=== PATIENT | male | born 1945 | race Caucasian/White ===

== ENCOUNTER 2017-02-28 06:36 | Inpatient (IN) | payer MEDICARE ==
--- NOTE | 2017-02-28 07:41 | RAD ---
PORTABLE CHEST: HISTORY: Chest pain. COMPARISON: 09/26/16 study. FINDINGS: Heart size is enlarged. Pulmonary vessels re engorged. There are some increased interstitial lung m arkings more bibasilar predominant. IMPRESSION: Cardiomegaly with mild vascular engorgement and increased interstitial changes. The changes are more in the bases than in a perihilar distribution, although would still favor a possibility of pulmonary edema as an etiology. Given the relative asymmetry, a bibasilar infiltrate cannot be excluded. Fol lowup chest films are suggested. POS: [facility]
[2017-02-28 08:13] LABS: #Lymphocytes 1.2 thou/uL (1.20-3.40); #Monocytes 0.4 thou/uL (0.11-0.59); #Neutrophils 3.1 thou/uL (1.40-6.50); %Eosinophils 0.1 % (0.0-10.0); %Lymphocytes 25.5 % (21.0-51.0); %Monocytes 7.8 % (0.0-10.0); Hematocrit 38.4 % (42.0-52.0); Mean Platelet Volume 9.1 fL (7.4-10.4); Red Blood Cell (RBC) Count 4.78 mill/uL (4.70-6.10); White Blood Cell (WBC) Count 4.8 thou/uL (4.8-10.8)
[2017-02-28 08:15] LABS: ALT (SGPT) 20 U/L (8-55); AST (SGOT) 21 U/L (5-34); Alkaline Phosphatase 101 U/L (40-150); Anion Gap 11 mmol/L (10-20); BUN (Urea Nitrogen) 18 mg/dL (8.4-25.7); Bilirubin, Total 0.2 mg/dL (0.2-1.2); CK (CPK) 154 U/L (30-200); Calc. Creatinine Clearance 0 mL/min (70-130); Carbon Dioxide 27 mmol/L (23-31); Chloride 104 mmol/L (98-107); Estimated GFR-MDRD Greater than 90; Globulin 3.1 g/dL (2.4-3.5); Protein, Total 6.9 g/dL (5.8-8.1)
[2017-02-28 08:18] LABS: Troponin I 0.026 ng/mL (< 0.028)
[2017-02-28 08:53] LABS: Prothrombin Time 13.9 SEC (12.0-14.7)
[2017-02-28] MEDS ORDERED: Furosemide 40 MG/4 ML VIAL ONE (09:58)
[2017-02-28] MEDS ORDERED: Nitroglycerin 2% Ointment 1 INCH/1 GM Packet ONE (09:58)
[2017-02-28] MEDS ORDERED: Aspirin 325 MG TAB ONE (09:58)
[2017-02-28] MEDS ORDERED: Senokot 8.6 MG TAB PO PRN ×2 (10:57)
[2017-02-28] MEDS ORDERED: HumaLOG 300 UNITS/3 ML VIAL SC PRN ×2 (10:57)
[2017-02-28] MEDS ORDERED: Loratadine 10 MG TAB PO PRN (10:57)
[2017-02-28] MEDS ORDERED: Calcium Carbonate 500 MG ChewTAB PO PRN (10:57)
[2017-02-28] MEDS ORDERED: Ondansetron HCl/PF 4 MG/2 ML Vial IVP PRN (10:57)
[2017-02-28] MEDS ORDERED: hydrALAZINE 20 MG/ML VIAL SLOW IVP PRN (10:57)
[2017-02-28] MEDS ORDERED: Bisacodyl 5 MG TAB PO PRN ×2 (10:57)
[2017-02-28] MEDS ORDERED: Diabetic Tussin 200 MG/10 ML UDCUP PO PRN (10:57)
[2017-02-28] MEDS ORDERED: Benzonatate 100 MG CAP PO PRN (10:57)
[2017-02-28] MEDS ORDERED: Nitroglycerin 0.4 MG TAB (25 Tab Bottle) PO PRN (10:57)
[2017-02-28] MEDS ORDERED: traMADol HCl 50 MG TAB PO PRN (10:57)
[2017-02-28] MEDS ORDERED: Dextrose 5% in Water 1,000 ML IV PRN (10:57)
[2017-02-28] MEDS ORDERED: Dextrose 50% Abboject 50 ML SYRINGE SLOW IVP PRN (10:57)
[2017-02-28] MEDS ORDERED: cloNIDine 0.1 MG TAB PO PRN (10:57)
[2017-02-28] MEDS ORDERED: Mag-Al 1200 mg/1200 mg/30 ML UDCUP PO PRN (10:57)
--- NOTE | 2017-02-28 11:00 | CT ---
CT ANGIO OF CHEST AND ABDOMEN PERFORMED WITH INTRAVENOUS CONTRAST ENHANCEMENT WITH 3D RECONSTRUCTIONS : HISTORY: Patient complaining of pain between the shoulder blades and tingling in the left arm. This was done per the aortic dissection protocol. FINDINGS: Lungs show some ground-glass opacity in both lung joe. This would raise the possibility there may be some element of edema. There is some very minimal nodular patchy airspace opacity in both upper lobes which could be on the basis of some minimal infiltrate or be part of edema process. It is less likely that these are small pulmonary nodules as they are fairly indistinct. There are some prevascular lymph nodes, one of which is slightly large at 10 mm. There is otherwise no significant mediastinal adenopathy. There are small hilar lymph nodes present. The central pulmonary arteries are fairly well opacified. I do not see any signs of any central pulm onary embolus. The thoracic aorta is normal in caliber. There is some irregular plaque formation of the aortic arch. There are no signs of dissection or aneurysm. CT OF ANGIO OF ABDOMEN PERFORMED WITH CONTRAST ENHANCEMENT: The liver is within normal limits of size. It has a nodular cirrhotic contour. It measures 15 cm in length. The spleen measures 13 cm. Pancreas and gallbladder regions are unremarkable. A hiatal hernia is noted. Right and left adrenal glands are normal in appearance. There is a 3.5 cm cyst involving the right k idney. There is no significant periaortic or mesenteric adenopathy. The thoracic aorta is normal in caliber. There is atherosclerotic change. There are no signs of diss ection. There is patent ANGEL and no significant stenosis of either celiac or SMA. A single renal art merissa is present on the right and 2 left renal arteries noted. IMPRESSION: 1. No evidence of aortic aneurysm or dissection. 2. Cirrhotic-appearing liver with some mild splenomegaly. 3. Patchy ground-glass opacity in both lung joe suggesting some element of edema superimposed on chronic lung change. There is also some slightly ill-defined nodular opacity in both upper lobes mor e so on the right, possibly some minimal infiltrative or pneumonitis-type change. POS: [facility]
[2017-02-28 11:28] LABS: Troponin I 0.429 ng/mL (< 0.028)
[2017-02-28] MEDS ORDERED: Iopamidol 370 76% 100 ML VIAL ONE (13:43)
[2017-02-28] MEDS ORDERED: Metoprolol Tartrate 25 MG TAB PO SCH (14:00)
--- NOTE | 2017-02-28 14:20 | HP ---
DATE OF ADMISSION: 02/28/2017 PRIMARY CARE PHYSICIAN: Rosanna León M.D. CHIEF COMPLAINT: Left-sided arm pain and back pain associated with some left-sided chest pain. HISTORY OF PRESENTING ILLNESS: Mr. Bahena is a pleasant 71-year-old male with past medical history o f seizure disorder, diabetes, hypertension, dyslipidemia, history of syncopal episode, attributed epi lepsy who presented to the ER with above-mentioned complaint. History is mainly obtained by the mike ent himself and electronic medical records has been reviewed. He was last admitted to our facility i n 09/2016 for a near syncopal episode and underwent neurological workup including a transthoracic ech ocardiogram and carotid Doppler ultrasound. His echo showed diastolic dysfunction and his carotid Do ppler was unremarkable. Today, he presented with above-mentioned complaint of 2-3 weeks duration. The symptoms are mainly pa in between his shoulder blades and his left shoulder and his left arm and associated with left arm ti ngling and numbness. He had an episode of syncope and fall about 1 week ago. He denies any palpitat ions, shortness of breath, diaphoresis with these episodes. He does not have typical chest pain per se. He denies any other recent illnesses. Upon presentation to the emergency room, he was somewhat hypertensive with systolic blood pressure in the 190s. He underwent chest x-ray which was unremarkable and then he underwent CT scan with aortic dissection protocol. He does not have any dissection or aneurysm, but patchy ground glass opacities were seen in the lung joe, suggesting of some edema. He was given one dose of Lasix IV for possi ble fluid overload. Serial cardiac enzymes were done and his initial troponin and CK-MB were within normal limits, but his repeat troponin jumped from 0.026-0.429. Now he is being admitted for further workup. He reports that he has worn a Holter monitor for about a month under the care of Dr. Love and no arrhythmias were reported that he can recall. PAST MEDICAL HISTORY: 1. Diabetes. 2. Dyslipidemia. 3. Hypertension. 4. History of seizure, under the care of neurologist, Dr. Kacie Pittman. 5. GERD. 6. 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 7. History of skin cancer. 8. History of reoccurrence falls. 9. Macular degeneration. 10. Chronic hepatitis B. 11. Shingles. 12. Hospitalization for Dilantin toxicity. PAST SURGICAL HISTORY: 1. Left ankle fracture in 1995. 2. Biopsy for skin cancer. 3. Vasectomy. ALLERGIES: Including DILANTIN, ACYCLOVIR, DEPAKOTE, and VALACYCLOVIR. CURRENT HOME MEDICATIONS: Unable to obtain at this time. It will be confined when family brings the medications to the hospital. SOCIAL HISTORY: He currently lives at home with his . Incidentally, his is also in the [facility] room today getting admitted for a different problem. He quit smoking in 1985. No alcohol or drug abuse. FAMILY HISTORY: Significant for diabetes, hypertension, and heart disease in the father and same for mother who had diabetes, hypertension, and heart disease. REVIEW OF SYSTEMS: The following complete review of systems was negative, unless otherwise mentioned in the HPI or below: Constitutional: Weight loss or gain, ability to conduct usual activities. Skin: Rash, itching. Eyes: Double vision, pain. ENT/Mouth: Nose bleeding, neck stiffness, pain, tenderness. Cardiovascular: Palpitations, dyspnea on exertion, orthopnea. Respiratory: Shortness of breath, wheezing, cough, hemoptysis, fever or night sweats. Gastrointestinal: Poor appetite, abdominal pain, heartburn, nausea, vomiting, constipation, or diarr hea. Genitourinary: Urgency, frequency, dysuria, nocturia. Musculoskeletal: Pain, swelling. Neurologic/Psychiatric: Anxiety, depression. Allergy/Immunologic: Skin rash, bleeding tendency. It is negative except for those mentioned in the history and physical. LABORATORY DATA AND IMAGING: On laboratory examination, his CBC shows WBCs at 4.8. Hemoglobin 12.2 and platelet count of 102. PT and INR are unremarkable. Serum chemistries show blood sugar 121, oth erwise unremarkable. Magnesium 2.3. BNP slightly elevated at 113. Troponin as per HPI. Creatinine kinase is within normal limits. Chest x-ray by my review, it shows mild vascular congestion and increased interstitial change. CT of the chest with dissection protocol is negative for any aortic dissection or aneurysm. PHYSICAL EXAMINATION: VITAL SIGNS: Most recent vital signs include blood pressure 165/69, temperature 98.2, pulse of 89, s aturating 100% on room air, and respirations 18. GENERAL: He appears somewhat uncomfortable, but awake, alert, oriented x3, no acute distress. HEENT: Mucous membrane is moist and pink. No oropharyngeal exudate or erythema. Head is normocepha lic, atraumatic. Pupils are equal and reactive to light and accommodation. Extraocular movements in tact. NECK: Supple without any lymphadenopathy, JVD or bruit. CHEST: Clear to auscultation without any wheezing, rales or rhonchi. CARDIOVASCULAR: Rhythm is regular without any murmur, rubs or gallops. ABDOMEN: Soft, nontender, and nondistended with positive bowel sounds. EXTREMITIES: Free of any cyanosis, clubbing, or edema. NEUROLOGIC: Examination is nonfocal. SKIN: Free of any rashes or bruises, feels warm and dry to touch. PSYCHIATRIC: Normal affect. VASCULAR: +2 pedal pulses felt bilaterally. IMPRESSION AND PLAN: 1. Chest pain with elevated and up-trending troponin. The concern is that he might have suffered ac [place] coronary syndrome at this time. We will continue to trend serial cardiac enzymes. He has receiv ed 1 dose of aspirin in the emergency room and we will continue that for now. His EKG did not sugges t ST elevation myocardial infarction. We will consult Cardiology for further recommendations. We wi ll give him 1 dose of Lovenox at 1 mg/kg dosing. The patient has already eaten today and if he needs a cardiac catheterization; it most likely will not be able to be done today. He will be admitted to telemetry floor with diagnosis of non-ST elevation myocardial infarction. We will add beta beatriz given his elevated blood pressure as well. We will continue to trend serial cardiac enzymes for now. He is hemodynamically stable. 2. Recent syncope and fall. The patient reports that he has worn a heart monitor without any eviden ce of arrhythmias in the recent past. Also, he has had a thorough neurological workup. Likely, diag nosis is still secondary to epilepsy and drop attacks. He will be monitored in the hospital and we w ill have Cardiology recommendations with regards to his possible syncopal episode as well. Check torito nges in blood pressure to rule out orthostasis as a cause. 3. Diabetes mellitus type 2. He will be started on insulin sliding scale with frequent Accu-Cheks. 4. History of epilepsy. He will continue to follow up with Dr. Pittman as an outpatient and we will re -start his home medications once confirmed. 5. Hypertension. Restart home medications, but for now, we will add beta beatriz given his presenta tion with chest pain and elevated cardiac enzymes. 6. Gastroesophageal reflux disease. He will be started on proton pump inhibitor. 7. History of chronic hepatitis B. 8. Vitamin D deficiency. 9. Code status: FULL CODE. Discussed with the patient and his daughter present in the room. DISPOSITION: The patient is currently being admitted for chest pain and non-ST elevation NH. Furthe r management will depend upon his clinical course and Cardiology's recommendations. If his troponins continue to trend upwards and he needs to have angiogram or angioplasty; he will be changed to inpat ient status.
[2017-02-28] MEDS ORDERED: Metoprolol Tartrate 25 MG TAB ONE (14:46)
[2017-02-28 14:59] LABS: Troponin I 0.825 ng/mL (< 0.028)
[2017-02-28] MEDS ORDERED: Enoxaparin Sodium 100 MG/ML SYRINGE ONE (15:07)
[2017-02-28] MEDS ORDERED: Enoxaparin Sodium 100 MG/ML SYRINGE SC SCH (15:30)
--- NOTE | 2017-02-28 19:56 | CON ---
DATE OF CONSULTATION: 02/28/2017 REASON FOR CONSULTATION: Elevated troponin. REFERRING PHYSICIAN: Tahira Stout MD PRIMARY AIRPLANE DESIGNER: Bonifacio Love M.D. HISTORY OF PRESENT ILLNESS: Mr. Bahena is a 71-year-old gentleman who was seen and evaluated by Dr. Bonifacio Love in 06/2016. He was seen and evaluated for falls. A loop recorder was placed, was no t found to have significant dysrhythmias. Most recently, Mr. Bahena had another syncopal episode while in the shower. His son states he hit th e back of his head. He lost consciousness. He does have a history of epilepsy in the past. He also complains of chest tightness and pressure that most notably occurs with drinking fluids. He then st ates he has left arm radiation. No other ameliorating, exacerbating, or precipitating factors presen t. The patient did present to the emergency room with elevated blood pressure. PAST MEDICAL HISTORY: Diabetes mellitus, hypertension, hyperlipidemia, seizure disorder, skin cancer , macular degeneration, hepatitis C, shingles, and vasectomy. ALLERGIES: DILANTIN, ACYCLOVIR, DEPAKOTE, VALACYCLOVIR. SOCIAL HISTORY: No current tobacco or alcohol use. REVIEW OF SYSTEMS: Ten point review of systems reviewed and as above, otherwise negative. PHYSICAL EXAMINATION: VITAL SIGNS: Blood pressure 155/74, pulse 65, temperature 98. GENERAL: Patient is a pleasant male who is in no acute distress. The patient appears his stated age . NEUROLOGIC: The patient is alert and oriented times 3 with no focal neurologic deficits. HEENT: Sclerae without icterus. Mouth has moist mucous membranes with normal pallor. NECK: No JVD. Carotid upstroke brisk. No bruits bilaterally. LUNGS: Clear to auscultation with unlabored respirations. BACK: No scoliosis or kyphosis. CARDIAC: Regular rate and rhythm with normal S1 and S2. No S3 or S4 noted. No significant rubs, m urmurs, thrills, or gallops noted throughout the precordium. PMI is not displaced. There is no para sternal heave. ABDOMEN: Soft, nontender, nondistended. No peritoneal signs present. No hepatosplenomegaly. No ab normal striae. EXTREMITIES: 2+ femoral and 2+ dorsalis pedis pulses. No cyanosis, clubbing, or edema. SKIN: No gross abnormalities. PERTINENT LABS: Hemoglobin 12.2, hematocrit 38.4, his troponin 0.8, creatinine 0.78. EKG shows sinus rhythm with nonspecific intraventricular conduction delay. IMPRESSION: 1. Non-Q myocardial infarction. 2. Syncope. 3. Seizure disorder. RECOMMENDATIONS: Mr. Bahena's symptoms certainly sound atypical for angina, but his troponin is 0.8, which is felt to be significant. We discussed aggressive versus conservative therapy with Mr. Boyd novak. We decided to proceed with a more aggressive approach. I discussed coronary angiography in full detail with Mr. Bahena. The risks of the procedure were also discussed. The risks of the procedure include but are not limited to the following: , stroke, IL, need for emergency surgery, loss of limb, bleeding, and infection, as well as a re action to the dye causing kidney failure and needing long-term dialysis. I also discussed the risks of PCI to include all of the above including coronary dissection and perforation in addition to acute stent thrombosis and restenosis. All questions about the procedure were answered. I also discussed drug-coated versus nondrug coated stent placement. He would like to proceed with drug-coated stent placement if needed. Further recommendations pending per Dr. Love in a.m..
[2017-02-28] MEDS: Famotidine 20 MG TAB PO SCH (20:47)
[2017-02-28] MEDS: carBAMazepine 200 MG TAB PO SCH (20:47)
[2017-02-28] MEDS: Metoprolol Tartrate 25 MG TAB PO SCH (20:47)
[2017-02-28 23:10] LABS: Bilirubin Negative (Negative); Blood, Urine Large (Negative); Glucose, Urine (Dipstick) Negative (Negative); Ketone, Urine Negative (Negative); Nitrite Negative (Negative); Protein, Urine (Dipstick) 100 mg/dL (Neg-Trace)
[2017-02-28 23:12] LABS: Bacteria/HPF None Seen HPF (None Seen); Hyaline Casts/LPF 0-3 HYALINE CAST LPF (0-3 Hyaline); RBC/HPF GREATER THAN 50-TNTC HPF (0-3); Squamous Epithelial None Seen HPF (0-3); WBC/HPF 0-3 HPF (0-3)
[2017-03-01 05:32] LABS: #Basophils 0.1 thou/uL (0.0-0.2); #Lymphocytes 1.6 thou/uL (1.20-3.40); #Monocytes 0.3 thou/uL (0.11-0.59); #Neutrophils 3.4 thou/uL (1.40-6.50); %Basophils 1.4 % (0.0-1.0); %Eosinophils 0.2 % (0.0-10.0); %Lymphocytes 29.9 % (21.0-51.0); Hematocrit 38.3 % (42.0-52.0); Mean Platelet Volume 9.7 fL (7.4-10.4); Red Blood Cell (RBC) Count 4.78 mill/uL (4.70-6.10); White Blood Cell (WBC) Count 5.5 thou/uL (4.8-10.8)
[2017-03-01 05:40] LABS: Anion Gap 10 mmol/L (10-20); BUN (Urea Nitrogen) 18 mg/dL (8.4-25.7); Calc. Creatinine Clearance 0 mL/min (70-130); Calcium 9.1 mg/dL (7.8-10.44); Carbon Dioxide 25 mmol/L (23-31); Chloride 103 mmol/L (98-107); Estimated GFR-MDRD Greater than 90
[2017-03-01 06:27] VITALS: BMI 33.0
[2017-03-01] MEDS ORDERED: HEPARIN ONE (07:37)
[2017-03-01] MEDS ORDERED: NS ONE (07:37)
[2017-03-01] MEDS ORDERED: carBAMazepine 200 MG TAB PO SCH (09:00)
[2017-03-01] MEDS ORDERED: Lisinopril 10 MG TAB PO SCH (09:00)
[2017-03-01] MEDS ORDERED: LOVASTATIN 20 MG PO SCH (09:00)
[2017-03-01] MEDS ORDERED: Enoxaparin Sodium 40 MG/0.4 ML SYRINGE SC SCH (09:00)
[2017-03-01] MEDS ORDERED: Heparin 1000 UNIT/NS 500ML(OR) 1,000 ML ONE (09:13)
[2017-03-01] MEDS ORDERED: Sodium Chloride 0.9% 1,000 ML IV SCH ×2 (09:15→10:42)
[2017-03-01] MEDS ORDERED: Communication Order-Pharmacy FS SCH (09:15)
[2017-03-01] MEDS ORDERED: Heparin 10,000 UNITS/1 ML VIAL ONE (09:37)
[2017-03-01] MEDS ORDERED: Fentanyl 100 MCG/2 ML VIAL ONE (09:59)
[2017-03-01] MEDS ORDERED: Midazolam HCl 2 mg/2 ml Vial ONE (09:59)
[2017-03-01] MEDS ORDERED: Protamine Sulfate 50 MG/5 ML VIAL ONE (10:19)
[2017-03-01] MEDS ORDERED: Nitroglycerin 4.9 GM Bottle ONE (10:23)
[2017-03-01] MEDS ORDERED: Nitroglycerin 0.4 MG TAB (25 Tab Bottle) SL PRN (10:39)
[2017-03-01] MEDS ORDERED: Sodium Chloride 0.9% 200 ML IV SCH (10:45)
[2017-03-01] MEDS: Famciclovir 500 MG TAB PO SCH (12:48)
[2017-03-01] MEDS: Metoprolol Tartrate 25 MG TAB PO SCH ×2 (12:49→20:47)
[2017-03-01] MEDS: Famotidine 20 MG TAB PO SCH ×2 (12:49→20:47)
[2017-03-01] MEDS: Aspirin 325 MG TAB PO SCH (12:49)
[2017-03-01] MEDS: Simvastatin 5 MG TAB PO SCH (13:00)
[2017-03-01] MEDS: Acetaminophen 325 MG TAB PO PRN ×2 (13:00→17:22)
[2017-03-01] MEDS: Zonisamide 100 MG CAP PO SCH (14:14)
[2017-03-01] MEDS ORDERED: Iopamidol 370 76% 100 ML VIAL ONE (14:22)
[2017-03-01] MEDS ORDERED: Iopamidol 370 76% 50 ML VIAL FS ONE (14:22)
--- NOTE | 2017-03-01 15:04 | PDOC.PN ---
- Subjective Encounter Start Date: 03/01/17 Encounter Start Time: 15:02 Subjective: s/p cardiac Cath.feels Ok. no more episdoes of L arm pain/numbness -: no SOB. - Objective MAR Reviewed: Yes Vital Signs & Weight: Vital Signs (12 hours) Temp Pulse Resp BP BP BP BP 03/01/17 14:10 64 202/97 H 03/01/17 12:50 183/96 H 03/01/17 11:31 97.9 F 56 L 16 157/92 H 03/01/17 10:39 56 L 16 03/01/17 08:00 98.2 F 65 19 03/01/17 07:25 65 19 188/81 H 03/01/17 06:00 97.9 F 61 18 175/83 H Pulse Ox 03/01/17 14:10 03/01/17 12:50 03/01/17 11:31 96 03/01/17 10:39 03/01/17 08:00 95 03/01/17 07:25 95 03/01/17 06:00 95 Weight Weight 204 lb 8 oz I&O: 02/28/17 03/01/17 03/02/17 06:59 06:59 06:59 Intake Total 120 Output Total 400 Balance -280 Result Diagrams: 03/01/17 04:29 03/01/17 04:29 Additional Labs: Accuchecks 03/01/17 03/01/17 02/28/17 12:07 06:04 20:34 POC Glucose 115 H 107 107 02/28/17 18:18 POC Glucose 124 H Laboratory Tests 02/28/17 02/28/17 02/28/17 07:35 10:47 14:15 Troponin I 0.026 0.429 H* 0.825 H* EKG Reviewed by me: Yes (tele-NSR) Phys Exam - Physical Examination Constitutional: NAD HEENT: PERRLA, moist MMs, sclera anicteric, oral pharynx no lesions Neck: no nodes, no JVD, supple, full ROM Respiratory: no wheezing, no rales, no rhonchi, clear to auscultation bilateral Cardiovascular: RRR, no significant murmur Gastrointestinal: soft, non-tender, no distention, positive bowel sounds Musculoskeletal: no edema, pulses present cath site w/o oozing/swelling Neurological: non-focal, normal sensation, moves all 4 limbs Psychiatric: normal affect, A&O x 3 Skin: no rash Dx/Plan (1) NSTEMI (non-ST elevated myocardial infarction) Code(s): I21.4 - NON-ST ELEVATION (NSTEMI) MYOCARDIAL INFARCTION Status: Acute (2) DM2 (diabetes mellitus, type 2) Status: Chronic (3) Epilepsy Code(s): G40.909 - EPILEPSY, UNSP, NOT INTRACTABLE, WITHOUT STATUS EPILEPTICUS Status: Chronic (4) HLD (hyperlipidemia) Code(s): E78.5 - HYPERLIPIDEMIA, UNSPECIFIED Status: Chronic (5) HTN (hypertension) Code(s): I10 - ESSENTIAL (PRIMARY) HYPERTENSION Status: Chronic - Plan out of bed/ambulate, DVT proph w/SCDs Cath results pending.cont.medical management for now.cont ASA. -: Cardiology following.Cont BB. -: hemodynamically stable. * . Review of Systems - Review of Systems Constitutional: Weakness, Malaise. negative: Fever, Chills, Sweats, Other Respiratory: negative: Cough, Dry, Shortness of Breath, Hemoptysis, SOB with Excertion, Pleuritic Pain, Sputum, Wheezing Cardiovascular: negative: Chest Pain, Palpitations, Orthopnea, Paroxysmal Noc. Dyspnea, Edema, Light Headedness, Other Gastrointestinal: negative: Nausea, Vomiting, Abdominal Pain, Diarrhea, Constipation, Melena, Hematochezia, Other Genitourinary: negative: Dysuria, Frequency, Incontinence, Hematuria, Retention , Other Musculoskeletal: negative: Neck Pain, Shoulder Pain, Arm Pain, Back Pain, Hand Pain, Leg Pain, Foot Pain, Other Neurological: negative: Weakness, Numbness, Incoordination, Change in Speech, Confusion, Seizures, Other - Medications/Allergies Allergies/Adverse Reactions: Allergies Allergy/AdvReac Type Severity Reaction Status Date / Time acyclovir Allergy Verified 08/12/15 09:31 divalproex sodium Allergy Verified 08/12/15 09:06 [From Depakote] phenytoin sodium Allergy Verified 08/12/15 09:06 [From Dilantin] phenytoin sodium extended Allergy Verified 08/12/15 09:06 [From Dilantin] valacyclovir Allergy Verified 08/12/15 09:31 Medications: Current Medications Acetaminophen (Tylenol) 650 mg PO Q4H PRN PRN Reason: Headache/Fever or Pain Last Admin: 03/01/17 13:00 Dose: 650 mg Al Hydroxide/Mg Hydroxide (Maalox) 30 ml PO Q6H PRN PRN Reason: Heartburn or Indigestion Aspirin (Aspirin) 325 mg PO DAILY [facility] Last Admin: 03/01/17 12:49 Dose: 325 mg Benzonatate (Tessalon) 100 mg PO Q4H PRN PRN Reason: Cough Bisacodyl (Dulcolax) 10 mg PO DAILYPRN PRN PRN Reason: Constipation Bisacodyl (Dulcolax) 10 mg PO DAILYPRN PRN PRN Reason: Constipation Calcium Carbonate (Tums) 1,000 mg PO Q4H PRN PRN Reason: Heartburn or Indigestion Carbamazepine (Tegretol) 400 mg PO QPM [facility] Last Admin: 02/28/17 20:47 Dose: 400 mg Carbamazepine (Tegretol) 200 mg PO 0600 [facility] Clonidine (Catapres) 0.1 mg PO Q4H PRN PRN Reason: Systolic BP > 160 Dextrose/Water (Dextrose 50%) 25 gm SLOW IVP PRN PRN PRN Reason: Hypoglycemia Famciclovir (Famvir) 250 mg PO DAILY [facility] Last Admin: 03/01/17 12:48 Dose: 250 mg Famotidine (Pepcid) 20 mg PO BID [facility] Last Admin: 03/01/17 12:49 Dose: 20 mg Glucagon (Glucagon) 1 mg IM PRN PRN PRN Reason: Hypoglycemia Guaifenesin (Robitussin Sf) 200 mg PO Q4H PRN PRN Reason: Cough Hydralazine HCl (Apresoline) 10 mg SLOW IVP Q4H PRN PRN Reason: Systolic BP > 170 Last Admin: 03/01/17 14:10 Dose: 10 mg Dextrose/Water (D5w) 1,000 mls @ 0 mls/hr IV .Q0M PRN; As Directed PRN Reason: Hypoglycemia Sodium Chloride (Normal Saline 0.9%) 1,000 mls @ 125 mls/hr IV .Q8H [facility] Stop: 03/01/17 16:30 Last Admin: 03/01/17 11:01 Dose: 1,000 mls Insulin Human Lispro (Humalog) 0 units SC .MODERATE SLIDING SC PRN PRN Reason: Moderate Correctional Scale Insulin Human Lispro (Humalog) 0 units SC .BEDTIME SLIDING SC PRN PRN Reason: Bedtime Correctional Scale Lisinopril (Zestril) 10 mg PO DAILY [facility] Last Admin: 03/01/17 12:50 Dose: 10 mg Loratadine (Claritin) 10 mg PO DAILYPRN PRN PRN Reason: Sinus Symptoms Metoprolol Tartrate (Lopressor) 12.5 mg PO BID [facility] Last Admin: 03/01/17 12:49 Dose: 12.5 mg Miscellaneous Information (Communication Order-Pharmacy) 0 each FS ASDIR MERA Nitroglycerin (Nitrostat) 0.4 mg PO Q5MIN PRN PRN Reason: Chest Pain Nitroglycerin (Nitrostat) 0.4 mg SL Q5MIN PRN PRN Reason: Chest Pain Ondansetron HCl (Zofran) 4 mg IVP Q6H PRN PRN Reason: Nausea/Vomiting Senna (Senokot) 2 tab PO HSPRN PRN PRN Reason: Constipation Senna (Senokot) 2 tab PO HSPRN PRN PRN Reason: Constipation Simvastatin (Zocor) 10 mg PO DAILY [facility] Last Admin: 03/01/17 13:00 Dose: 10 mg Sodium Chloride (Flush - Normal Saline) 10 ml IVF PRN PRN PRN Reason: Saline Flush Last Admin: 03/01/17 14:10 Dose: 10 ml Terazosin HCl (Hytrin) 5 mg PO QPM [facility] Tramadol HCl (Ultram) 50 mg PO Q4H PRN PRN Reason: Moderate Pain (4-6) Zonisamide (Zonegran) 100 mg PO DAILY [facility] Last Admin: 03/01/17 14:14 Dose: 100 mg
--- NOTE | 2017-03-01 18:12 | EKG ---
Test Reason : POST CATH/SX OREOP Blood Pressure : / mmHG Vent. Rate : 079 BPM Atrial Rate : 079 BPM P-R Int : 194 ms QRS Dur : 136 ms QT Int : 446 ms P-R-T Axes : 048 -68 -64 degrees QTc Int : 511 ms Normal sinus rhythm Left axis deviation Left ventricular hypertrophy with QRS widening T wave abnormality, consider anterolateral ischemia Abnormal ECG When compared with ECG of 28-FEB-2017 06:43, (Unconfirmed) T wave inversion now evident in Anterolateral leads QT has lengthened Confirmed by CRISTINA BRAVO ([id number]) on 03/01/2017 6:12:29 PM Referred By: YECENIA Confirmed By:CRISTINA BRAVO
[2017-03-01] MEDS: Terazosin HCl 5 MG CAP PO SCH (20:46)
[2017-03-01] MEDS: carBAMazepine 200 MG TAB PO SCH (20:46)
--- NOTE | 2017-03-01 23:45 | CON ---
DATE OF CONSULTATION: 03/01/2017 REASON FOR CONSULTATION: Evaluation for coronary artery bypass surgery. PERTINENT HISTORY: The patient is a 71-year-old male who presented yesterday with a [id number] elevation AR and evidence of fluid overload. Peak troponin I was 0.83. BNP was 113. Cardiac catheterization today demonstrated left main and severe 3-vessel disease with moderate reduction in left ventricular systolic function. Ejection fraction was 35% to 40%. LVEDP was 14. The patient was subsequently referred for coronary artery bypass surgery. PAST MEDICAL HISTORY: 1. Hypertension. 2. Dyslipidemia. 3. Gastroesophageal reflux disease. 4. Chronic hepatitis B. 5. Macular degeneration. 6. Seizure disorder. 7. Syncope/drop attacks/falls, felt to represent of vertigo by Neurology. 8. Benign prostatic hypertrophy. 9. Former diabetic. 10. Shingles. PAST SURGICAL HISTORY: 1. Repair of left ankle fracture. 2. Vasectomy. 3. Skin cancer biopsies. ALLERGIES: ACYCLOVIR, DIVALPROEX, DILANTIN, and VALACYCLOVIR. SOCIAL HISTORY: Former smoker. Nondrinker. FAMILY HISTORY: Significant for coronary artery disease in both his father and mother. LABORATORY AND X-RAY FINDINGS: Hemoglobin 12.4. Platelet count 109,000. INR 1.1. Creatinine 0.80. Admission chest x-ray demonstrated cardiomegaly with mild pulmonary vascular engorgement. CURRENT MEDICATIONS: Aspirin 325 mg daily, Tegretol 200 mg q.a.m. and 400 mg q.p.m., Famvir 250 mg daily, Pepcid 20 mg b.i.d., lisinopril 10 mg daily, metoprolol 12.5 mg b.i.d., Zocor 10 mg daily, Hytrin 5 mg q.p.m., Zonegran 100 mg daily, and multiple p.r.n. medications. PHYSICAL EXAMINATION: VITAL SIGNS: Height 5 feet 6 inches, weight 204 pounds. Blood pressure 157/92 , heart rate 64, temperature 97.9. GENERAL: Well-developed, well-nourished male in no acute distress. He is fully oriented. HEENT: Grossly unremarkable. NECK: Without JVD or adenopathy. LUNGS: Clear with good inspiratory effort. HEART: Regular rate and rhythm without murmur or rub. ABDOMEN: Soft and nontender, without palpable mass. EXTREMITIES: Without edema. VASCULAR: Palpable radial, femoral, and popliteal pulses bilaterally. No carotid bruits were appreciated. Abdominal aorta is nonpalpable. NEUROLOGIC: No focal deficits. IMPRESSION: Non ST segment elevation myocardial infarction, left main and severe 3-vessel coronary artery disease, and moderate reduction in left ventricular systolic function. RECOMMENDATIONS: Coronary artery bypass surgery to which the patient is in agreement following discussion with his referring pallet rectifier and myself. The indications, benefits, alternatives, and risks were explained in detail to the patient. All questions were answered. The patient agrees to proceed without reservations. Case will be scheduled later this week. The above discussion will be reiterated to the patient's family members when I have a chance to meet with them tomorrow. JAYLEEN
[2017-03-02 05:02] LABS: Hematocrit 36.6 % (42.0-52.0)
[2017-03-02 05:29] LABS: Anion Gap 11 mmol/L (10-20); BUN (Urea Nitrogen) 22 mg/dL (8.4-25.7); Calc. Creatinine Clearance 82 mL/min (70-130); Calcium 9.1 mg/dL (7.8-10.44); Carbon Dioxide 25 mmol/L (23-31); Chloride 104 mmol/L (98-107); Estimated GFR-MDRD 67
[2017-03-02] MEDS: carBAMazepine 200 MG TAB PO SCH ×2 (05:59→20:04)
[2017-03-02] MEDS: Simvastatin 5 MG TAB PO SCH (09:57)
[2017-03-02] MEDS: Metoprolol Tartrate 25 MG TAB PO SCH ×2 (09:57→20:05)
[2017-03-02] MEDS: Aspirin 325 MG TAB PO SCH (09:57)
[2017-03-02] MEDS: Lisinopril 10 MG TAB PO SCH (09:58)
[2017-03-02] MEDS: Famciclovir 500 MG TAB PO SCH (09:58)
[2017-03-02] MEDS: Famotidine 20 MG TAB PO SCH ×2 (09:59→20:05)
[2017-03-02] MEDS: Zonisamide 100 MG CAP PO SCH (10:13)
--- NOTE | 2017-03-02 13:43 | PDOC.PN ---
- Subjective Encounter Start Date: 03/02/17 Encounter Start Time: 13:41 Subjective: feels OK. no chest pain/left shoulder or arm pain. -: breathing Ok - Objective MAR Reviewed: Yes Vital Signs & Weight: Vital Signs (12 hours) Temp Pulse Resp BP BP BP Pulse Ox 03/02/17 12:38 98.5 F 91 16 119/65 94 L 03/02/17 09:58 106/55 L 03/02/17 08:09 97.8 F 86 18 106/55 L 94 L 03/02/17 07:46 98.1 F 80 16 94 L 03/02/17 04:00 98.1 F 80 16 99/55 L 91 L Weight Weight 204 lb 6.4 oz I&O: 03/01/17 03/02/17 03/03/17 06:59 06:59 06:59 Intake Total 120 200 Output Total 400 360 Balance -280 -160 Result Diagrams: 03/02/17 04:35 03/02/17 04:35 Additional Labs: Accuchecks 03/02/17 03/02/17 03/01/17 11:36 06:09 22:37 POC Glucose 130 H 122 H 144 H 03/01/17 15:52 POC Glucose 143 H Laboratory Tests 02/28/17 02/28/17 02/28/17 07:35 10:47 14:15 Troponin I 0.026 0.429 H* 0.825 H* Phys Exam - Physical Examination Constitutional: NAD HEENT: PERRLA, moist MMs, sclera anicteric, oral pharynx no lesions Neck: no nodes, no JVD, supple, full ROM Respiratory: no wheezing, no rales, no rhonchi, clear to auscultation bilateral Cardiovascular: RRR, no significant murmur Gastrointestinal: soft, non-tender, no distention, positive bowel sounds Musculoskeletal: no edema, pulses present Neurological: non-focal, normal sensation, moves all 4 limbs Psychiatric: normal affect, A&O x 3 Skin: no rash Dx/Plan (1) NSTEMI (non-ST elevated myocardial infarction) Code(s): I21.4 - NON-ST ELEVATION (NSTEMI) MYOCARDIAL INFARCTION Status: Acute (2) DM2 (diabetes mellitus, type 2) Status: Chronic (3) Epilepsy Code(s): G40.909 - EPILEPSY, UNSP, NOT INTRACTABLE, WITHOUT STATUS EPILEPTICUS Status: Chronic (4) HLD (hyperlipidemia) Code(s): E78.5 - HYPERLIPIDEMIA, UNSPECIFIED Status: Chronic (5) HTN (hypertension) Code(s): I10 - ESSENTIAL (PRIMARY) HYPERTENSION Status: Chronic (6) CAD (coronary artery disease) Code(s): I25.10 - ATHSCL HEART DISEASE OF [place] CORONARY ARTERY W/O ANG PCTRS Status: Acute (7) Ischemic cardiomyopathy Code(s): I25.5 - ISCHEMIC CARDIOMYOPATHY Status: Chronic Comment: EF 35-40% - Plan PT/OT, incentive spirometry, out of bed/ambulate, DVT proph w/SCDs 3 V CAD on cath.plans for CABG.CTVS,cardiology following. -: cont current cardio-prudent meds.ASA,statin,BB,JULIO-I.monitor BP. -: Home meds as below. -: Holding valium given somewhat low BP. * . Review of Systems - Review of Systems Constitutional: Weakness, Malaise. negative: Fever, Chills, Sweats, Other ENT: negative: Ear Pain, Ear Discharge, Nose Pain, Nose Discharge, Nose Congestion, Mouth Pain, Mouth Swelling, Throat Pain, Throat Swelling, Other Respiratory: negative: Cough, Dry, Shortness of Breath, Hemoptysis, SOB with Excertion, Pleuritic Pain, Sputum, Wheezing Cardiovascular: negative: Chest Pain, Palpitations, Orthopnea, Paroxysmal Noc. Dyspnea, Edema, Light Headedness, Other Gastrointestinal: negative: Nausea, Vomiting, Abdominal Pain, Diarrhea, Constipation, Melena, Hematochezia, Other Genitourinary: negative: Dysuria, Frequency, Incontinence, Hematuria, Retention , Other Musculoskeletal: negative: Neck Pain, Shoulder Pain, Arm Pain, Back Pain, Hand Pain, Leg Pain, Foot Pain, Other Neurological: negative: Weakness, Numbness, Incoordination, Change in Speech, Confusion, Seizures, Other - Medications/Allergies Allergies/Adverse Reactions: Allergies Allergy/AdvReac Type Severity Reaction Status Date / Time acyclovir Allergy Verified 08/12/15 09:31 divalproex sodium Allergy Verified 08/12/15 09:06 [From Depakote] phenytoin sodium Allergy Verified 08/12/15 09:06 [From Dilantin] phenytoin sodium extended Allergy Verified 08/12/15 09:06 [From Dilantin] valacyclovir Allergy Verified 08/12/15 09:31 Medications: Current Medications Acetaminophen (Tylenol) 650 mg PO Q4H PRN PRN Reason: Headache/Fever or Pain Last Admin: 03/01/17 17:22 Dose: 650 mg Al Hydroxide/Mg Hydroxide (Maalox) 30 ml PO Q6H PRN PRN Reason: Heartburn or Indigestion Aspirin (Aspirin) 325 mg PO DAILY [facility] Last Admin: 03/02/17 09:57 Dose: 325 mg Benzonatate (Tessalon) 100 mg PO Q4H PRN PRN Reason: Cough Bisacodyl (Dulcolax) 10 mg PO DAILYPRN PRN PRN Reason: Constipation Calcium Carbonate (Tums) 1,000 mg PO Q4H PRN PRN Reason: Heartburn or Indigestion Carbamazepine (Tegretol) 400 mg PO QPM [facility] Last Admin: 03/01/17 20:46 Dose: 400 mg Carbamazepine (Tegretol) 200 mg PO 0600 [facility] Last Admin: 03/02/17 05:59 Dose: 200 mg Clonidine (Catapres) 0.1 mg PO Q4H PRN PRN Reason: Systolic BP > 160 Dextrose/Water (Dextrose 50%) 25 gm SLOW IVP PRN PRN PRN Reason: Hypoglycemia Famciclovir (Famvir) 250 mg PO DAILY [facility] Last Admin: 03/02/17 09:58 Dose: 250 mg Famotidine (Pepcid) 20 mg PO BID [facility] Last Admin: 03/02/17 09:59 Dose: 20 mg Glucagon (Glucagon) 1 mg IM PRN PRN PRN Reason: Hypoglycemia Guaifenesin (Robitussin Sf) 200 mg PO Q4H PRN PRN Reason: Cough Hydralazine HCl (Apresoline) 10 mg SLOW IVP Q4H PRN PRN Reason: Systolic BP > 170 Last Admin: 03/01/17 14:10 Dose: 10 mg Dextrose/Water (D5w) 1,000 mls @ 0 mls/hr IV .Q0M PRN; As Directed PRN Reason: Hypoglycemia Insulin Human Lispro (Humalog) 0 units SC .MODERATE SLIDING SC PRN PRN Reason: Moderate Correctional Scale Insulin Human Lispro (Humalog) 0 units SC .BEDTIME SLIDING SC PRN PRN Reason: Bedtime Correctional Scale Lisinopril (Zestril) 10 mg PO DAILY [facility] Last Admin: 03/02/17 09:58 Dose: Not Given Loratadine (Claritin) 10 mg PO DAILYPRN PRN PRN Reason: Sinus Symptoms Metoprolol Tartrate (Lopressor) 12.5 mg PO BID [facility] Last Admin: 03/02/17 09:57 Dose: Not Given Miscellaneous Information (Communication Order-Pharmacy) 0 each FS ASDIR [facility] Nitroglycerin (Nitrostat) 0.4 mg PO Q5MIN PRN PRN Reason: Chest Pain Ondansetron HCl (Zofran) 4 mg IVP Q6H PRN PRN Reason: Nausea/Vomiting Last Admin: 03/01/17 19:42 Dose: 4 mg Senna (Senokot) 2 tab PO HSPRN PRN PRN Reason: Constipation Simvastatin (Zocor) 10 mg PO DAILY [facility] Last Admin: 03/02/17 09:57 Dose: 10 mg Sodium Chloride (Flush - Normal Saline) 10 ml IVF PRN PRN PRN Reason: Saline Flush Last Admin: 03/01/17 19:42 Dose: 10 ml Terazosin HCl (Hytrin) 5 mg PO QPM [facility] Last Admin: 03/01/17 20:46 Dose: 5 mg Tramadol HCl (Ultram) 50 mg PO Q4H PRN PRN Reason: Moderate Pain (4-6) Zonisamide (Zonegran) 100 mg PO DAILY [facility] Last Admin: 03/02/17 10:13 Dose: 100 mg
[2017-03-02] MEDS ORDERED: Communication Order-Pharmacy FS SCH (15:14)
[2017-03-02] MEDS: Terazosin HCl 5 MG CAP PO SCH (20:04)
[2017-03-03] MEDS: carBAMazepine 200 MG TAB PO SCH ×2 (05:23→21:07)
--- NOTE | 2017-03-03 08:41 | RAD ---
CHEST PA AND LATERAL TWO VIEWS: History: 71-year-old male for pre-operative coronary artery bypass graft evaluation. Comparison: 03-27-17 FINDINGS: Monitor leads overlie the chest. Heart size is within normal limits. The lungs are clear. Mild linear parenchymal change in the left base probably some chronic process. Interstitial edema and congestion seen on the prior 12-3 study have resolved. IMPRESSION: Resolution of the previously noted bilateral interstitial edema and vascular congestion. No significa nt acute process. POS: [facility]
[2017-03-03] MEDS: Metoprolol Tartrate 25 MG TAB PO SCH ×2 (08:58→21:08)
[2017-03-03] MEDS: Aspirin 325 MG TAB PO SCH (08:58)
[2017-03-03] MEDS: Simvastatin 5 MG TAB PO SCH (08:58)
[2017-03-03] MEDS: Zonisamide 100 MG CAP PO SCH (08:59)
[2017-03-03] MEDS: Famotidine 20 MG TAB PO SCH ×2 (08:59→21:07)
[2017-03-03] MEDS: Famciclovir 500 MG TAB PO SCH (08:59)
[2017-03-03] MEDS: Lisinopril 10 MG TAB PO SCH (08:59)
[2017-03-03] MEDS ORDERED: HYDROcodone/Acetaminophen 5/325 mg Tablet ONE (10:50)
--- NOTE | 2017-03-03 11:05 | PDOC.PN ---
- Subjective Encounter Start Date: 03/03/17 Encounter Start Time: 07:45 -: old records requested/rev Patient seen and examined. No new complaints. No overnight events - Objective MAR Reviewed: Yes Vital Signs & Weight: Vital Signs (12 hours) Temp Pulse Resp BP BP BP Pulse Ox 03/03/17 08:59 147/67 H 03/03/17 07:22 97.5 F L 72 18 147/67 H 94 L 03/03/17 07:13 97.7 F 80 20 94 L 03/03/17 04:00 97.7 F 80 20 146/69 H 94 L Weight Weight 200 lb I&O: 03/02/17 03/03/17 03/04/17 06:59 06:59 06:59 Intake Total 200 480 240 Output Total 360 750 Balance -160 -270 240 Result Diagrams: 03/02/17 04:35 03/02/17 04:35 Additional Labs: Accuchecks 03/03/17 03/02/17 03/02/17 05:52 19:59 16:41 POC Glucose 104 165 H 131 H 03/02/17 11:36 POC Glucose 130 H EKG Reviewed by me: Yes Phys Exam - Physical Examination Constitutional: NAD HEENT: PERRLA, moist MMs, sclera anicteric Neck: no JVD, supple Respiratory: no wheezing, no rales, no rhonchi Cardiovascular: RRR, no significant murmur, no rub Gastrointestinal: soft, non-tender, no distention, positive bowel sounds Musculoskeletal: no edema, pulses present Neurological: non-focal Psychiatric: normal affect Skin: no rash, normal turgor Dx/Plan (1) CAD (coronary artery disease) Code(s): I25.10 - ATHSCL HEART DISEASE OF [place] CORONARY ARTERY W/O ANG PCTRS Status: Acute (2) NSTEMI (non-ST elevated myocardial infarction) Code(s): I21.4 - NON-ST ELEVATION (NSTEMI) MYOCARDIAL INFARCTION Status: Acute (3) DM2 (diabetes mellitus, type 2) Status: Chronic (4) Epilepsy Code(s): G40.909 - EPILEPSY, UNSP, NOT INTRACTABLE, WITHOUT STATUS EPILEPTICUS Status: Chronic (5) GERD (gastroesophageal reflux disease) Code(s): K21.9 - GASTRO-ESOPHAGEAL REFLUX DISEASE WITHOUT ESOPHAGITIS Status: Chronic (6) HLD (hyperlipidemia) Code(s): E78.5 - HYPERLIPIDEMIA, UNSPECIFIED Status: Chronic (7) HTN (hypertension) Code(s): I10 - ESSENTIAL (PRIMARY) HYPERTENSION Status: Chronic (8) Ischemic cardiomyopathy Code(s): I25.5 - ISCHEMIC CARDIOMYOPATHY Status: Chronic Comment: EF 35-40% (9) Obesity (BMI 30.0-34.9) Code(s): E66.9 - OBESITY, UNSPECIFIED Status: Chronic - Plan cont current plan of care * medication reviewed as below * symptomatic treatment * pt is medically stable with current treatment * tomorrow plan for CABG. Review of Systems - Review of Systems ENT: negative: Ear Pain, Ear Discharge, Nose Pain, Nose Discharge, Nose Congestion, Mouth Pain, Mouth Swelling, Throat Pain, Throat Swelling, Other Respiratory: negative: Cough, Dry, Shortness of Breath, Hemoptysis, SOB with Excertion, Pleuritic Pain, Sputum, Wheezing Cardiovascular: negative: Chest Pain, Palpitations, Orthopnea, Paroxysmal Noc. Dyspnea, Edema, Light Headedness, Other Gastrointestinal: negative: Nausea, Vomiting, Abdominal Pain, Diarrhea, Constipation, Melena, Hematochezia, Other Genitourinary: negative: Dysuria, Frequency, Incontinence, Hematuria, Retention , Other Musculoskeletal: negative: Neck Pain, Shoulder Pain, Arm Pain, Back Pain, Hand Pain, Leg Pain, Foot Pain, Other Skin: negative: Rash, Lesions, Galileo, Bruising, Other - Medications/Allergies Allergies/Adverse Reactions: Allergies Allergy/AdvReac Type Severity Reaction Status Date / Time acyclovir Allergy Verified 08/12/15 09:31 divalproex sodium Allergy Verified 08/12/15 09:06 [From Depakote] phenytoin sodium Allergy Verified 08/12/15 09:06 [From Dilantin] phenytoin sodium extended Allergy Verified 08/12/15 09:06 [From Dilantin] valacyclovir Allergy Verified 08/12/15 09:31 Medications: Current Medications Acetaminophen (Tylenol) 650 mg PO Q4H PRN PRN Reason: Headache/Fever or Pain Stop: 03/04/17 08:59 Last Admin: 03/01/17 17:22 Dose: 650 mg Al Hydroxide/Mg Hydroxide (Maalox) 30 ml PO Q6H PRN PRN Reason: Heartburn or Indigestion Stop: 03/04/17 08:59 Aspirin (Aspirin) 325 mg PO DAILY [facility] Stop: 03/04/17 08:59 Last Admin: 03/03/17 08:58 Dose: 325 mg Benzonatate (Tessalon) 100 mg PO Q4H PRN PRN Reason: Cough Stop: 03/04/17 08:59 Bisacodyl (Dulcolax) 10 mg PO DAILYPRN PRN PRN Reason: Constipation Stop: 03/04/17 08:59 Calcium Carbonate (Tums) 1,000 mg PO Q4H PRN PRN Reason: Heartburn or Indigestion Stop: 03/04/17 08:59 Carbamazepine (Tegretol) 400 mg PO QPM [facility] Stop: 03/04/17 08:59 Last Admin: 03/02/17 20:04 Dose: 400 mg Carbamazepine (Tegretol) 200 mg PO 0600 [facility] Stop: 03/04/17 08:59 Last Admin: 03/03/17 05:23 Dose: 200 mg Cefazolin Sodium (Ancef) 2 gm SLOW IVP 1000 [facility] Stop: 03/04/17 12:00 Clonidine (Catapres) 0.1 mg PO Q4H PRN PRN Reason: Systolic BP > 160 Stop: 03/04/17 08:59 Dextrose/Water (Dextrose 50%) 25 gm SLOW IVP PRN PRN PRN Reason: Hypoglycemia Stop: 03/04/17 08:59 Famciclovir (Famvir) 250 mg PO DAILY [facility] Stop: 03/04/17 08:59 Last Admin: 03/03/17 08:59 Dose: 250 mg Famotidine (Pepcid) 20 mg PO BID [facility] Stop: 03/04/17 08:59 Last Admin: 03/03/17 08:59 Dose: 20 mg Glucagon (Glucagon) 1 mg IM PRN PRN PRN Reason: Hypoglycemia Stop: 03/04/17 08:59 Guaifenesin (Robitussin Sf) 200 mg PO Q4H PRN PRN Reason: Cough Stop: 03/04/17 08:59 Hydralazine HCl (Apresoline) 10 mg SLOW IVP Q4H PRN PRN Reason: Systolic BP > 170 Stop: 03/04/17 08:59 Last Admin: 03/01/17 14:10 Dose: 10 mg Dextrose/Water (D5w) 1,000 mls @ 0 mls/hr IV .Q0M PRN; As Directed PRN Reason: Hypoglycemia Stop: 03/04/17 08:59 Vancomycin HCl 1.5 gm/ Sodium (Chloride) 300 mls @ 200 mls/hr IVPB 0930 [facility] Stop: 03/04/17 11:30 Insulin Human Lispro (Humalog) 0 units SC .MODERATE SLIDING SC PRN PRN Reason: Moderate Correctional Scale Stop: 03/04/17 08:59 Insulin Human Lispro (Humalog) 0 units SC .BEDTIME SLIDING SC PRN PRN Reason: Bedtime Correctional Scale Stop: 03/04/17 08:59 Lisinopril (Zestril) 10 mg PO DAILY [facility] Last Admin: 03/03/17 08:59 Dose: 10 mg Loratadine (Claritin) 10 mg PO DAILYPRN PRN PRN Reason: Sinus Symptoms Stop: 03/04/17 08:59 Metoprolol Tartrate (Lopressor) 12.5 mg PO BID [facility] Last Admin: 03/03/17 08:58 Dose: 12.5 mg Miscellaneous Information (Communication Order-Pharmacy) 1 each FS ONE [facility] Stop: 03/04/17 12:00 Nitroglycerin (Nitrostat) 0.4 mg PO Q5MIN PRN PRN Reason: Chest Pain Stop: 03/04/17 08:59 Ondansetron HCl (Zofran) 4 mg IVP Q6H PRN PRN Reason: Nausea/Vomiting Stop: 03/04/17 08:59 Last Admin: 03/01/17 19:42 Dose: 4 mg Senna (Senokot) 2 tab PO HSPRN PRN PRN Reason: Constipation Stop: 03/04/17 08:59 Simvastatin (Zocor) 10 mg PO DAILY [facility] Stop: 03/04/17 08:59 Last Admin: 03/03/17 08:58 Dose: 10 mg Sodium Chloride (Flush - Normal Saline) 10 ml IVF PRN PRN PRN Reason: Saline Flush Stop: 03/04/17 08:59 Last Admin: 03/01/17 19:42 Dose: 10 ml Terazosin HCl (Hytrin) 5 mg PO QPM [facility] Stop: 03/04/17 08:59 Last Admin: 03/02/17 20:04 Dose: 5 mg Tramadol HCl (Ultram) 50 mg PO Q4H PRN PRN Reason: Moderate Pain (4-6) Stop: 03/04/17 08:59 Zonisamide (Zonegran) 100 mg PO 0600 [facility] Stop: 03/04/17 06:01
[2017-03-03] MEDS: Terazosin HCl 5 MG CAP PO SCH (21:08)
[2017-03-04] MEDS: carBAMazepine 200 MG TAB PO SCH ×2 (05:59→19:57)
[2017-03-04] MEDS: Metoprolol Tartrate 25 MG TAB PO SCH (06:00)
[2017-03-04] MEDS: Lisinopril 10 MG TAB PO SCH (06:00)
[2017-03-04] MEDS ORDERED: Zonisamide 100 MG CAP PO SCH (06:00)
[2017-03-04] MEDS ORDERED: Heparin 10,000 UNITS/1 ML VIAL 30,000 UNITS in Sodium Chloride 0.9% 1,000 ML FS SCH (06:45)
[2017-03-04] MEDS ORDERED: Midazolam HCl 5 mg/5 ml Vial ONE (06:56)
[2017-03-04] MEDS ORDERED: Vecuronium 10 MG VIAL ONE ×2 (06:56→17:08)
[2017-03-04] MEDS ORDERED: Fentanyl 250 MCG/5 ML VIAL ONE ×2 (06:56)
[2017-03-04] MEDS ORDERED: Norepinephrine 8 MG/0.9% NS 250 ML ONE (06:56)
[2017-03-04] MEDS ORDERED: CEFAZOLIN/Water 2 GM/20 ML SYRINGE ONE (07:58)
[2017-03-04] MEDS ORDERED: Midazolam HCl 2 mg/2 ml Vial ONE (08:19)
[2017-03-04] MEDS ORDERED: Vancomycin HCl 1.5 GM in Sodium Chloride 0.9% 250 ML 300 ML IVPB SCH (09:30)
[2017-03-04] MEDS ORDERED: CEFAZOLIN/Water 2 GM/20 ML SYRINGE SLOW IVP SCH (10:00)
[2017-03-04] MEDS ORDERED: CEFAZOLIN 2 GM in Sodium Chloride 0.9% 100 ML IVPB SCH (10:00)
[2017-03-04] MEDS ORDERED: Albumin 5% 500 ML ONE (11:13)
--- NOTE | 2017-03-04 11:38 | PDOC.PN ---
- Subjective Encounter Start Date: 03/04/17 Encounter Start Time: 06:00 Patient seen and examined. No new complaints. No overnight events - Objective MAR Reviewed: Yes Vital Signs & Weight: Vital Signs (12 hours) Temp Pulse Resp BP Pulse Ox 03/04/17 04:00 97.9 F 67 18 136/62 94 L Weight Weight 203 lb I&O: 03/03/17 03/04/17 03/05/17 06:59 06:59 06:59 Intake Total 480 1320 Output Total 750 1125 Balance -270 195 Result Diagrams: 03/02/17 04:35 03/02/17 04:35 Additional Labs: Accuchecks 03/04/17 03/03/17 03/03/17 06:01 21:15 16:38 POC Glucose 113 H 123 H 117 H 03/03/17 11:59 POC Glucose 148 H EKG Reviewed by me: Yes Phys Exam - Physical Examination Constitutional: NAD HEENT: PERRLA, moist MMs, sclera anicteric Neck: no JVD, supple Respiratory: no wheezing, no rales, no rhonchi Cardiovascular: RRR, no significant murmur, no rub Gastrointestinal: soft, non-tender, no distention, positive bowel sounds Musculoskeletal: no edema, pulses present Neurological: non-focal, normal sensation Lymphatic: no nodes Psychiatric: normal affect Skin: no rash, normal turgor Dx/Plan (1) CAD (coronary artery disease) Code(s): I25.10 - ATHSCL HEART DISEASE OF [place] CORONARY ARTERY W/O ANG PCTRS Status: Acute (2) NSTEMI (non-ST elevated myocardial infarction) Code(s): I21.4 - NON-ST ELEVATION (NSTEMI) MYOCARDIAL INFARCTION Status: Acute (3) DM2 (diabetes mellitus, type 2) Status: Chronic (4) Epilepsy Code(s): G40.909 - EPILEPSY, UNSP, NOT INTRACTABLE, WITHOUT STATUS EPILEPTICUS Status: Chronic (5) GERD (gastroesophageal reflux disease) Code(s): K21.9 - GASTRO-ESOPHAGEAL REFLUX DISEASE WITHOUT ESOPHAGITIS Status: Chronic (6) HLD (hyperlipidemia) Code(s): E78.5 - HYPERLIPIDEMIA, UNSPECIFIED Status: Chronic (7) HTN (hypertension) Code(s): I10 - ESSENTIAL (PRIMARY) HYPERTENSION Status: Chronic (8) Ischemic cardiomyopathy Code(s): I25.5 - ISCHEMIC CARDIOMYOPATHY Status: Chronic Comment: EF 35-40% (9) Obesity (BMI 30.0-34.9) Code(s): E66.9 - OBESITY, UNSPECIFIED Status: Chronic - Plan cont current plan of care * pt is scheduled for CABG today * after CABG, CT surgeon will continue post operative care in CCU as per protocol treatment * medication reviewed as below * symptomatic treatment * will follow. Review of Systems - Review of Systems ENT: negative: Ear Pain, Ear Discharge, Nose Pain, Nose Discharge, Nose Congestion, Mouth Pain, Mouth Swelling, Throat Pain, Throat Swelling, Other Respiratory: negative: Cough, Dry, Shortness of Breath, Hemoptysis, SOB with Excertion, Pleuritic Pain, Sputum, Wheezing Cardiovascular: negative: Chest Pain, Palpitations, Orthopnea, Paroxysmal Noc. Dyspnea, Edema, Light Headedness, Other Gastrointestinal: negative: Nausea, Vomiting, Abdominal Pain, Diarrhea, Constipation, Melena, Hematochezia, Other Genitourinary: negative: Dysuria, Frequency, Incontinence, Hematuria, Retention , Other Musculoskeletal: negative: Neck Pain, Shoulder Pain, Arm Pain, Back Pain, Hand Pain, Leg Pain, Foot Pain, Other Skin: negative: Rash, Lesions, Galileo, Bruising, Other - Medications/Allergies Allergies/Adverse Reactions: Allergies Allergy/AdvReac Type Severity Reaction Status Date / Time acyclovir Allergy Verified 08/12/15 09:31 divalproex sodium Allergy Verified 08/12/15 09:06 [From Depakote] phenytoin sodium Allergy Verified 08/12/15 09:06 [From Dilantin] phenytoin sodium extended Allergy Verified 08/12/15 09:06 [From Dilantin] valacyclovir Allergy Verified 08/12/15 09:31 Medications: Current Medications Cefazolin Sodium (Ancef) 2 gm SLOW IVP 1000 [facility] Stop: 03/04/17 12:00 Heparin Sodium (Porcine) 30, (000 units/ Sodium Chloride) 1,003 mls @ 0 mls/hr FS [facility] PRN Reason: As Directed Stop: 03/04/17 18:00 Lisinopril (Zestril) 10 mg PO DAILY [facility] Last Admin: 03/04/17 06:00 Dose: 10 mg Metoprolol Tartrate (Lopressor) 12.5 mg PO BID [facility] Last Admin: 03/04/17 06:00 Dose: 12.5 mg Miscellaneous Information (Communication Order-Pharmacy) 1 each FS ONE [facility] Stop: 03/04/17 12:00
[2017-03-04] MEDS ORDERED: Insulin Regular 300 UNITS/3 ML VIAL ONE (13:53)
[2017-03-04] MEDS ORDERED: Lidocaine 2% PF 100 mg/5 ml Syringe ONE (14:02)
[2017-03-04] MEDS ORDERED: Bisacodyl 10 MG SUPP PR PRN (15:23)
[2017-03-04] MEDS ORDERED: Post-Op Insulin Drip Protocol IVPB ONE (15:23)
[2017-03-04] MEDS ORDERED: HYDROcodone/Acetaminophen 5/325 mg Tablet PO PRN (15:23)
[2017-03-04] MEDS ORDERED: hydrALAZINE 20 MG/ML VIAL SLOW IVP PRN (15:23)
[2017-03-04] MEDS ORDERED: Potassium Chloride 20 MEQ/100 ML PREMIX BAG IVPB PRN (15:23)
[2017-03-04] MEDS ORDERED: Fentanyl 100 MCG/2 ML VIAL SLOW IVP PRN (15:23)
[2017-03-04] MEDS ORDERED: Bisacodyl 5 MG TAB PO PRN (15:23)
[2017-03-04] MEDS ORDERED: Nitroglycerin 50 MG/250 ML BOT 250 ML IVPB PRN (15:23)
[2017-03-04] MEDS ORDERED: Promethazine HCl 25 MG/ML VIAL IM PRN (15:23)
[2017-03-04] MEDS ORDERED: Acetaminophen 325 MG TAB PO PRN (15:23)
[2017-03-04] MEDS ORDERED: Guaifenesin DM 100-10/5 ML UDCUP PO PRN (15:23)
[2017-03-04] MEDS ORDERED: DOPamine 400 MG/D5W 250 ML 250 ML IVPB PRN (15:23)
[2017-03-04] MEDS ORDERED: Mag-Al 1200 mg/1200 mg/30 ML UDCUP PO PRN (15:23)
[2017-03-04] MEDS ORDERED: Norepinephrine 8 MG/0.9% NS 250 ML IVPB PRN (15:23)
[2017-03-04] MEDS ORDERED: Sodium Chloride 0.9% 1,000 ML IV SCH (15:23)
[2017-03-04] MEDS ORDERED: Phenylephrine 10 MG/NS 250 ML 250 ML IVPB PRN (15:23)
[2017-03-04] MEDS ORDERED: Fentanyl 100 MCG/2 ML VIAL ONE (15:24)
[2017-03-04 15:37] LABS: Oxyhemoglobin 90.4 % (94.0-97.0); Sodium 142 mmol/L (135-148)
[2017-03-04 15:38] LABS: Mechanical Tidal Volume 500 ml; Mode SIMV/PSV; PIP 21 cmH2O; Pressure Support 10 cmH2O; Vent YES
[2017-03-04 15:51] LABS: #Lymphocytes 1.4 thou/uL (1.20-3.40); #Monocytes 0.7 thou/uL (0.11-0.59); %Basophils 0.2 % (0.0-1.0); %Eosinophils 0.2 % (0.0-10.0); %Lymphocytes 12.3 % (21.0-51.0); %Monocytes 5.9 % (0.0-10.0); Hematocrit 30.8 % (42.0-52.0); Mean Platelet Volume 8.4 fL (7.4-10.4)
[2017-03-04] MEDS ORDERED: Dextrose 5% in Water 1,000 ML IV PRN (15:55)
[2017-03-04] MEDS ORDERED: Dextrose 50% Abboject 50 ML SYRINGE SLOW IVP PRN (15:55)
[2017-03-04] MEDS ORDERED: Insulin Regular 300 UNITS/3 ML VIAL SC PRN (15:55)
[2017-03-04 15:56] LABS: PTT 31.3 SEC (22.9-36.1); Prothrombin Time 18.2 SEC (12.0-14.7)
[2017-03-04 16:07] LABS: Anion Gap 9 mmol/L (10-20); BUN (Urea Nitrogen) 20 mg/dL (8.4-25.7); Calc. Creatinine Clearance 128 mL/min (70-130); Calcium 7.5 mg/dL (7.8-10.44); Carbon Dioxide 23 mmol/L (23-31); Chloride 111 mmol/L (98-107); Estimated GFR-MDRD Greater than 90
[2017-03-04] MEDS ORDERED: Morphine 2 mg/2ml in 0.9% NaCl PF SYRINGE SLOW IVP PRN (16:15)
--- NOTE | 2017-03-04 16:51 | RAD ---
AP VIEW OF CHEST; Date: 03/04/17 INDICATION: Status post open heart surgery. COMPARISON: Prior chest radiograph dated 03/03/17. FINDINGS: There has been interval postsurgical change of recent CABG with midline sternotomy changes and melvin us surgical clips overlying the left heart border. There is moderate prominent cardiomegaly with pulm onary vascular congestion and mild central edema present. There is a new right subclavian central shari ous catheter projecting in the region of the right atrium. A midline mediastinal drain is present. Th ere is a left-sided thoracostomy tube in place. The patient is intubated with ET tube tip seen 4.7 cm from the level of the cristin. No pneumothorax is evident. IMPRESSION: 1. Postoperative chest. 2. Moderate prominent cardiomegaly with pulmonary vascular congestion with mild central edema patter n. Continued follow-up is recommended. 3. Right subclavian central venous catheter, mediastinal drain, and left-sided thoracostomy catheter . 4. No pneumothorax is demonstrated. POS: [facility]
[2017-03-04] MEDS ORDERED: Aminocaproic Acid 5 GM/20 ML VIAL ONE (17:08)
[2017-03-04] MEDS ORDERED: Protamine Sulfate 250 MG/25 ML VIAL ONE (17:08)
[2017-03-04] MEDS ORDERED: Lidocaine 1% PF 5 ML VIAL ONE (17:08)
[2017-03-04] MEDS ORDERED: Heparin 30,000 units/30 ml VIAL ONE (17:08)
[2017-03-04] MEDS ORDERED: Propofol 200 MG/20 ML VIAL ONE (17:08)
[2017-03-04] MEDS: CEFAZOLIN/Water 2 GM/20 ML SYRINGE SLOW IVP SCH (17:59)
[2017-03-04] MEDS: Ketorolac Tromethamine 30 MG/ML VIAL IVP SCH ×2 (17:59→23:03)
[2017-03-04 18:34] LABS: Oxyhemoglobin 95.1 % (94.0-97.0); Sodium 141 mmol/L (135-148)
[2017-03-04] MEDS ORDERED: Metoprolol Tartrate 5 MG/5 ML VIAL IVP PRN (18:57)
[2017-03-04 19:45] LABS: Mode CPAP; Pressure Support 10 cmH2O; Vent YES
[2017-03-04] MEDS: Ondansetron HCl/PF 4 MG/2 ML Vial IVP PRN (19:57)
[2017-03-04] MEDS: Famotidine/PF 20 mg/2ml Vial SLOW IVP SCH (19:57)
[2017-03-04] MEDS: Fentanyl 100 MCG/2 ML VIAL SLOW IVP PRN (20:16)
[2017-03-04] MEDS: HYDROcodone/Acetaminophen 5/325 mg Tablet PO PRN (20:50)
--- NOTE | 2017-03-04 20:55 | OP ---
PREOPERATIVE DIAGNOSES: Tok-[id number]-[id number] elevation myocardial infarction, left main and severe 3-vessel coronary artery disease, and moderate reduction in left ventricular systolic function. POSTOPERATIVE DIAGNOSES: [id number]-AF-[id number] elevation myocardial infarction, left main and severe 3-vessel coronary artery disease, and moderate reduction in left ventricular systolic function. SURGEON: Clive Shabazz M.D. RN HEART: Jet Etienne M.D. SPONGE AND NEEDLE COUNTS: Correct. ANESTHESIA: General. OPERATION PERFORMED: Coronary artery bypass grafting x4 with left internal mammary artery in sequence to mid LAD and distal LAD, reversed greater saphenous vein to diagonal, and reversed greater saphenous vein to OM. FINDINGS AT OPERATION: Cardiomegaly with no obvious LV scarring. As anticipated, the PL was threadlike and deemed non-graftable. At the sites of distal anastomoses the mid LAD was 1.25 to 1.5 mm, the distal LAD 1 to 1.25 mm, the diagonal 1.5 mm, and the OM 1.5 to 1.75 mm. Left internal mammary artery and greater saphenous vein were good conduits. DESCRIPTION OF OPERATION: The patient was taken to the operating room. Following the induction of general endotracheal anesthesia, the patient was prepped and draped in the usual sterile fashion. Left thigh greater saphenous vein was harvested using the endoscopic technique. Sternotomy was performed. Left internal mammary artery was dissected in extrapleural fashion. Heparin dose was given and following assurance of an adequate ACT, the patient was cannulated in standard fashion. Cardiopulmonary bypass was instituted. Locations of distal anastomoses were marked. Padded cross-clamp was applied with a single application and a single dose of cold blood cardioplegia given antegrade. The first vein graft was anastomosed in end-to-side fashion to the OM using a continuous 7-0 Prolene suture. In similar fashion, the second vein graft was established to the diagonal. Left internal mammary artery was now anastomosed in sequenced fashion to the mid and distal LAD. It was first anastomosed in [id number] fashion to the midline LAD using a continuous 7-0 Prolene suture and then in end-to-side fashion to the distal LAD using a continuous 7-0 Prolene suture. Mammary artery pedicle was tacked to the epicardium using 6-0 Prolene sutures. Systemic rewarming had been begun. With the head down and gentle suction on the aortic vent, the aortic cross-clamp was removed. Cardioversion x1 was required. Partial clamp was placed on the ascending aorta with a single application and the 2 proximal vein graft anastomoses performed to punch holes using continuous 6-0 Prolene sutures. Partial clamp was removed and vein grafts deaired. Following full systemic rewarming, the patient was weaned from cardiopulmonary bypass without difficulty and following heparin reversal with Protamine, the patient was decannulated. Amicar had been used in standard fashion through the case. He did receive 2 units of packed red blood cells while on pump for hemoglobin of 6.2 with notably low preoperative hemoglobin. Additionally, at this time, he received a single donor pack of platelets to assist in hemostasis. He has a chronic thrombocytopenia with platelet count of just over 100,000. Victor Hugo drains were positioned within the pericardial well and left pleural cavity. Sternum was reapproximated with interrupted #7 stainless steel wires. Linea alba and fascia were closed with running #1 Vicryl sutures, followed by closure of the subcutaneous tissues with a running 2-0 Vicryl suture. Skin was closed with a 3-0 Vicryl subcuticular stitch. Prior to closure, vancomycin paste had been applied to the sternal halves. Platelet-enriched and platelet-poor plasma had also been applied to the sternal wound. The patient was taken to the ICU. JAYLEEN
[2017-03-04 21:30] LABS: Hematocrit 30.9 % (42.0-52.0)
[2017-03-04] MEDS: Vancomycin HCl 1.5 GM in Sodium Chloride 0.9% 250 ML 300 ML IVPB SCH (23:03)
[2017-03-05] MEDS: CEFAZOLIN/Water 2 GM/20 ML SYRINGE SLOW IVP SCH ×2 (02:02→09:13)
[2017-03-05] MEDS: Ondansetron HCl/PF 4 MG/2 ML Vial IVP PRN (02:11)
[2017-03-05] MEDS: Fentanyl 100 MCG/2 ML VIAL SLOW IVP PRN (04:43)
[2017-03-05] MEDS: Ketorolac Tromethamine 30 MG/ML VIAL IVP SCH ×3 (05:24→18:37)
[2017-03-05] MEDS: carBAMazepine 200 MG TAB PO SCH ×2 (05:25→21:18)
[2017-03-05] MEDS: Zonisamide 100 MG CAP PO SCH (05:27)
[2017-03-05 05:38] LABS: Anion Gap 5 mmol/L (10-20); BUN (Urea Nitrogen) 21 mg/dL (8.4-25.7); Calc. Creatinine Clearance 113 mL/min (70-130); Carbon Dioxide 27 mmol/L (23-31); Chloride 110 mmol/L (98-107); Estimated GFR-MDRD Greater than 90
[2017-03-05 05:42] LABS: #Lymphocytes 0.8 thou/uL (1.20-3.40); #Monocytes 0.6 thou/uL (0.11-0.59); #Neutrophils 6.8 thou/uL (1.40-6.50); %Basophils 0.2 % (0.0-1.0); %Eosinophils 0.1 % (0.0-10.0); %Monocytes 7.6 % (0.0-10.0); Hematocrit 30.5 % (42.0-52.0); Mean Platelet Volume 8.8 fL (7.4-10.4); Red Blood Cell (RBC) Count 3.67 mill/uL (4.70-6.10); White Blood Cell (WBC) Count 8.3 thou/uL (4.8-10.8)
[2017-03-05] MEDS ORDERED: Aspirin 325 MG TAB PO SCH (09:00)
--- NOTE | 2017-03-05 09:04 | PDOC.PN ---
- Subjective Encounter Start Date: 03/05/17 Encounter Start Time: 07:00 pt did well overnight, this morning he is seated in chair, has chest tube in place - Objective MAR Reviewed: Yes Vital Signs & Weight: Vital Signs (12 hours) Temp 03/05/17 04:00 99.3 F 03/05/17 00:00 99.8 F H Weight Weight 207 lb 10.807 oz Most Recent Monitor Data Heart Rate from ECG 80 NIBP 118/50 NIBP BP-Mean 80 Respiration from ECG 20 SpO2 100 I&O: 03/04/17 03/05/17 03/06/17 06:59 06:59 06:59 Intake Total 1320 798.1 Output Total 1125 3065 Balance 195 -2266.9 Result Diagrams: 03/05/17 04:51 03/05/17 04:51 Additional Labs: Accuchecks 03/05/17 03/05/17 03/05/17 07:59 06:40 05:00 POC Glucose 114 H 135 H 131 H 03/05/17 03/05/17 03/05/17 04:26 03:24 02:15 POC Glucose 136 H 127 H 104 03/05/17 03/05/17 03/04/17 01:14 00:02 23:01 POC Glucose 102 135 H 162 H 03/04/17 03/04/17 21:19 15:29 POC Glucose 207 H 141 H Radiology Reviewed by me: Yes (chest xray) EKG Reviewed by me: Yes (nsr) Phys Exam - Physical Examination Constitutional: NAD HEENT: PERRLA, moist MMs, sclera anicteric Neck: no JVD, supple Respiratory: no wheezing, no rales, no rhonchi Cardiovascular: RRR, no significant murmur, no rub surgical site with dressing, chest tube in place Gastrointestinal: soft, non-tender, no distention, positive bowel sounds Musculoskeletal: no edema, pulses present Neurological: non-focal, normal sensation, moves all 4 limbs Lymphatic: no nodes Psychiatric: normal affect, A&O x 3 Skin: no rash, normal turgor Dx/Plan (1) S/P CABG x 4 Status: Acute (2) CAD (coronary artery disease) Code(s): I25.10 - ATHSCL HEART DISEASE OF [place] CORONARY ARTERY W/O ANG PCTRS Status: Acute (3) NSTEMI (non-ST elevated myocardial infarction) Code(s): I21.4 - NON-ST ELEVATION (NSTEMI) MYOCARDIAL INFARCTION Status: Acute (4) DM2 (diabetes mellitus, type 2) Status: Chronic (5) Epilepsy Code(s): G40.909 - EPILEPSY, UNSP, NOT INTRACTABLE, WITHOUT STATUS EPILEPTICUS Status: Chronic (6) GERD (gastroesophageal reflux disease) Code(s): K21.9 - GASTRO-ESOPHAGEAL REFLUX DISEASE WITHOUT ESOPHAGITIS Status: Chronic (7) HLD (hyperlipidemia) Code(s): E78.5 - HYPERLIPIDEMIA, UNSPECIFIED Status: Chronic (8) HTN (hypertension) Code(s): I10 - ESSENTIAL (PRIMARY) HYPERTENSION Status: Chronic (9) Ischemic cardiomyopathy Code(s): I25.5 - ISCHEMIC CARDIOMYOPATHY Status: Chronic Comment: EF 35-40% (10) Obesity (BMI 30.0-34.9) Code(s): E66.9 - OBESITY, UNSPECIFIED Status: Chronic - Plan cont current plan of care * continue post operative management as per cardiology and CT surgeon * medically stable * medication reviewed as below * symptomatic treatment. Review of Systems - Review of Systems ENT: negative: Ear Pain, Ear Discharge, Nose Pain, Nose Discharge, Nose Congestion, Mouth Pain, Mouth Swelling, Throat Pain, Throat Swelling, Other Respiratory: negative: Cough, Dry, Shortness of Breath, Hemoptysis, SOB with Excertion, Pleuritic Pain, Sputum, Wheezing Cardiovascular: negative: Chest Pain, Palpitations, Orthopnea, Paroxysmal Noc. Dyspnea, Edema, Light Headedness, Other Gastrointestinal: negative: Nausea, Vomiting, Abdominal Pain, Diarrhea, Constipation, Melena, Hematochezia, Other Genitourinary: negative: Dysuria, Frequency, Incontinence, Hematuria, Retention , Other Musculoskeletal: negative: Neck Pain, Shoulder Pain, Arm Pain, Back Pain, Hand Pain, Leg Pain, Foot Pain, Other - Medications/Allergies Allergies/Adverse Reactions: Allergies Allergy/AdvReac Type Severity Reaction Status Date / Time acyclovir Allergy Verified 08/12/15 09:31 divalproex sodium Allergy Verified 08/12/15 09:06 [From Depakote] phenytoin sodium Allergy Verified 08/12/15 09:06 [From Dilantin] phenytoin sodium extended Allergy Verified 08/12/15 09:06 [From Dilantin] valacyclovir Allergy Verified 08/12/15 09:31 Medications: Current Medications Acetaminophen (Tylenol) 650 mg PO Q6H PRN PRN Reason: Headache/Fever Or Mild Pain Hydrocodone Bitart/Acetaminophen (Duff 5/325) 1 tab PO Q4H PRN PRN Reason: Moderate Pain (4-6) Last Admin: 03/04/17 20:50 Dose: 1 tab Hydrocodone Bitart/Acetaminophen (Duff 5/325) 2 tab PO Q4H PRN PRN Reason: Severe Pain (7-10) Last Admin: 03/05/17 02:00 Dose: 2 tab Al Hydroxide/Mg Hydroxide (Maalox) 30 ml PO Q4H PRN PRN Reason: Indigestion Albumin Human (Albumin 5%) 12.5 gm IVPB Q6H PRN PRN Reason: To Maintain SBP> 90 mmHG Stop: 03/05/17 15:24 Albumin Human (Albumin 5%) 25 gm IVPB Q6H PRN PRN Reason: To Maintain SBP > 90 mmHG Stop: 03/05/17 15:24 Albuterol/Ipratropium (Duoneb) 3 ml NEB Q1MT-QQ PRN PRN Reason: SHORTNESS OF BREATH Aspirin (Aspirin) 325 mg PO DAILY [facility] Bisacodyl (Dulcolax) 10 mg PO Q12H PRN PRN Reason: Constipation Bisacodyl (Dulcolax) 10 mg SD Q12H PRN PRN Reason: Constipation Carbamazepine (Tegretol) 400 mg PO HS [facility] Last Admin: 03/04/17 19:57 Dose: 400 mg Carbamazepine (Tegretol) 200 mg PO 0600 [facility] Last Admin: 03/05/17 05:25 Dose: 200 mg Cefazolin Sodium (Ancef) 2 gm SLOW IVP 0200,1000,1800 [facility] Stop: 03/05/17 10:01 Last Admin: 03/05/17 02:02 Dose: 2 gm Dextrose/Water (Dextrose 50%) 25 gm SLOW IVP PRN PRN PRN Reason: PER HYPOGLYCEMIC PROTOCOL Famotidine (Pepcid) 20 mg SLOW IVP Q12HR [facility] Last Admin: 03/04/17 19:57 Dose: 20 mg Fentanyl (Sublimaze) 25 mcg SLOW IVP Q2H PRN PRN Reason: Moderate Pain (4-6) Stop: 03/06/17 15:11 Last Admin: 03/05/17 04:43 Dose: 25 mcg Fentanyl (Sublimaze) 50 mcg SLOW IVP Q2H PRN PRN Reason: Severe Pain (7-10) Stop: 03/06/17 15:11 Glucagon (Glucagon) 1 mg SC PRN PRN PRN Reason: PER HYPOGLYCEMIC PROTOCOL Guaifenesin/Dextromethorphan (Robitussin Dm) 15 ml PO Q4H PRN PRN Reason: Cough Hydralazine HCl (Apresoline) 10 mg SLOW IVP Q6H PRN PRN Reason: To Maintain SBP< 140mmHG Dopamine HCl/Dextrose (Dopamine/D5w) 250 mls @ 0 mls/hr IVPB PRN PRN; Protocol ; Titrate PRN Reason: To maintain SBP > 90 mmHG Norepinephrine Bitartrate (Levophed) 250 mls @ 0 mls/hr IVPB PRN PRN; Protocol ; Titrate PRN Reason: To maintain SBP > 90 mmHG Nicardipine HCl 25 mg/ Sodium (Chloride) 260 mls @ 0 mls/hr IVPB INF PRN; Protocol; Titrate PRN Reason: To Maintain SBP< 140mmHG Nitroglycerin/Dextrose (Nitroglycerin 50 Mg/250 Ml Bot) 250 mls @ 0 mls/hr IVPB PRN PRN; Protocol; Titrate PRN Reason: To Maintain SBP< 140mmHG Last Admin: 03/04/17 16:06 Dose: 250 mls Sodium Chloride (Normal Saline 0.9%) 1,000 mls @ 50 mls/hr IV .Q20H [facility] Last Admin: 03/04/17 15:40 Dose: 1,000 mls Phenylephrine HCl (Chip-Synephrine) 250 mls @ 0 mls/hr IVPB PRN PRN; Protocol; Titrate PRN Reason: To maintain SBP > 90 mmHG Vancomycin HCl 1.5 gm/ Sodium (Chloride) 300 mls @ 150 mls/hr IVPB 1200,2359 [facility] Stop: 03/05/17 13:59 Last Admin: 03/04/17 23:03 Dose: 300 mls Insulin Human Regular 100 (units/ Sodium Chloride) 101 mls @ 0 mls/hr IVPB INF [facility]; As Directed PRN Reason: Protocol Last Admin: 03/04/17 21:34 Dose: 101 mls Dextrose/Water (D5w) 1,000 mls @ 0 mls/hr IV INF PRN; As Directed PRN Reason: PRN HYPOGLYCEMIC PROTOCOL Insulin Human Regular (Humulin R) 0 units SC Q4H PRN; Protocol PRN Reason: POST OP SLIDING SCALE Last Admin: 03/04/17 18:00 Dose: 3 unit Ketorolac Tromethamine (Toradol) 15 mg IVP Q6HR [facility] Stop: 03/07/17 18:01 Last Admin: 03/05/17 05:24 Dose: 15 mg Metoprolol Tartrate (Lopressor) 2 mg IVP Q6H PRN PRN Reason: HR > 110 Morphine Sulfate/Sodium Chloride (Morphine 0.9% Nacl Pf 2 Mg/2ml) 2 mg SLOW IVP Q15MIN PRN PRN Reason: Severe Pain (7-10) Ondansetron HCl (Zofran) 4 mg IVP Q6H PRN PRN Reason: Nausea/Vomiting Last Admin: 03/05/17 02:11 Dose: 4 mg Potassium Chloride (Kcl) 20 meq IVPB PRN PRN PRN Reason: K level </= 4.0 Last Admin: 03/04/17 16:21 Dose: 20 meq Promethazine HCl (Phenergan) 6.25 mg IM Q4H PRN PRN Reason: Nausea/Vomiting Sodium Chloride (Flush - Normal Saline) 10 ml IVF PRN PRN PRN Reason: Saline Flush Zonisamide (Zonegran) 100 mg PO 0600 [facility] Last Admin: 03/05/17 05:27 Dose: 100 mg
[2017-03-05] MEDS: HYDROcodone/Acetaminophen 5/325 mg Tablet PO PRN ×2 (09:11→18:36)
[2017-03-05] MEDS: Famotidine/PF 20 mg/2ml Vial SLOW IVP SCH (09:12)
--- NOTE | 2017-03-05 09:28 | RAD ---
AP VIEW CHEST: DATE: 03/05/17. COMPARISON: Comparison is made to the exam from 03/04/17. FINDINGS: AP vie chest demonstrates sternotomy wires seen. A right subclavian central line is seen. A left-si ded chest tube is seen. A mediastinal drain is in place. The patient has been extubated. Areas of patchy densities seen in the left upper and left lung base are compatible with areas of atelectasis or pneumonia. IMPRESSION: Stable AP view of chest, except for interval extubation of the patient. POS: OFF
[2017-03-05] MEDS ORDERED: Furosemide 40 MG/4 ML VIAL SLOW IVP SCH (10:30)
[2017-03-05] MEDS ORDERED: Famciclovir 500 MG TAB PO SCH (10:45)
[2017-03-05] MEDS ORDERED: Insulin Detemir 100 UNITS/ML 12 UNITS in Pre-Filled Syringe 1 EACH SC SCH (11:00)
[2017-03-05] MEDS: Vancomycin HCl 1.5 GM in Sodium Chloride 0.9% 250 ML 300 ML IVPB SCH (11:54)
--- NOTE | 2017-03-05 12:20 | EKG ---
Test Reason : Blood Pressure : / mmHG Vent. Rate : 090 BPM Atrial Rate : 090 BPM P-R Int : 204 ms QRS Dur : 138 ms QT Int : 398 ms P-R-T Axes : 049 -70 096 degrees QTc Int : 486 ms Normal sinus rhythm Left axis deviation Non-specific intra-ventricular conduction block Abnormal QRS-T angle, consider primary T wave abnormality Abnormal ECG When compared with ECG of 01-MAR-2017 13:08, Nonspecific T wave abnormality no longer evident in Inferior leads T wave inversion less evident in Anterolateral leads Confirmed by CRISTINA BRVAO ([id number]) on 03/05/2017 12:20:36 PM Referred By: DORCAS Confirmed By:CRISTINA BRAVO
--- NOTE | 2017-03-05 12:30 | CON ---
DATE OF CONSULTATION: 03/05/2017 SERVICE: Pulmonary Medicine. INTERVAL HISTORY: The patient is a 71-year-old white male with past medical history significant for coronary artery disease. He presented to the hospital on 02/28/2017 because of complaints of left ar m pain and back pain associated with left-sided chest pain. Ultimately, he was found to have coronar y artery disease. He went for coronary artery bypass graft yesterday. This was a 4-vessel bypass. He is in the postop period right now. He has done extraordinarily well overnight. He has been weane d off of all pressors and he is breathing comfortably. He is on minimal oxygen and his sats are sophia astic. He does look a little bit puny. He seems to enjoy being in the bed. We have made a very goo d effort at motivating him. He has been into a chair this morning. We are going to continue our eff orts moving forward. He understands how important it is to cough and take a deep breath to prevent h imself from having complications from his procedure. PAST MEDICAL HISTORY: 1. Coronary artery disease. 2. Hypertension. 3. Dyslipidemia. 4. Type 2 diabetes mellitus. 5. Gastroesophageal reflux disease. 6. Seizure disorder. 7. Macular degeneration. 8. Chronic hepatitis B. 9. History of shingles. 10. History of skin cancer, status post excision. PAST SURGICAL HISTORY: 1. Left ankle surgery in 1995 for fracture. 2. Skin biopsy and excision. 3. Vasectomy. ALLERGIES: DILANTIN, ACYCLOVIR, DEPAKOTE, VALACYCLOVIR. MEDICATIONS: List of his inpatient medications was reviewed. No updates were made at this time. SOCIAL HISTORY: He lives at home with his . He quit smoking in 1985, but prior to that had 30-p ack-year history of smoking. He denies any alcohol or illicit drug use. He has no exposures to chem icals, dust, asbestos or tuberculosis. FAMILY HISTORY: Noncontributory. REVIEW OF SYSTEMS: General, head, ears, eyes, nose, throat, cardiovascular, respiratory, GI, , mus culoskeletal, neurologic and skin is negative except as mentioned in the HPI. PHYSICAL EXAMINATION: VITAL SIGNS: Afebrile with T-max 99.8, pulse 77, blood pressure 118/50, respirations 18, saturation 92% on room air. GENERAL: The patient is awake, alert, in no apparent distress. LUNGS: Excellent air entry. There is no prolonged expiratory phase, but rhonchi are present. They cleared with cough. Dependent crackles are minimal. HEART: Normal rate and regular. ABDOMEN: Soft, nontender, nondistended, bowel sounds are positive. MUSCULOSKELETAL: No cyanosis or clubbing. There is trace pitting in the bilateral lower extremities . NEUROLOGIC: Grossly nonfocal. LABORATORY DATA: WBC 8.3, hemoglobin 10.0, platelets 111,000. INR 1.5. A pH 7.40, pCO2 34, and pO2 86. Basic metabolic profile is essentially unremarkable. IMAGING: Chest x-ray demonstrates thoracostomy draining good position. There is no acute cardiopulm onary abnormality otherwise identified. ASSESSMENT: 1. Coronary artery disease, status post coronary artery bypass graft x4 vessels, postoperative day # 1. 2. Chronic systolic heart failure with an ejection fraction of 35%. 3. Seizure disorder. 4. Type 2 diabetes mellitus. PLAN: We will maintain good glycemic control. The patient will remain in the ICU for next 24 hours. We will work on mobilizing him as much as tolerated. Incentive spirometer will be provided at beds rani.
[2017-03-05] MEDS ORDERED: Mag-Al 1200 mg/1200 mg/30 ML UDCUP PO PRN (17:14)
[2017-03-05] MEDS ORDERED: Artificial Tears 18 DROP/0.9 ML EA EYE PRN (17:14)
[2017-03-05] MEDS ORDERED: Milk Of Magnesia 30 ML UDCUP PO PRN (17:14)
[2017-03-05] MEDS ORDERED: Mineral Oil ENEMA PR PRN (17:14)
[2017-03-05] MEDS ORDERED: HYDROcodone/Acetaminophen 5/325 mg Tablet PO PRN (17:14)
[2017-03-05] MEDS ORDERED: Bisacodyl 5 MG TAB PO PRN (17:14)
[2017-03-05] MEDS ORDERED: Bisacodyl 10 MG SUPP PR PRN (17:14)
[2017-03-05] MEDS ORDERED: Acetaminophen 325 MG TAB PO PRN (17:14)
[2017-03-05] MEDS ORDERED: Nitroglycerin 0.4 MG TAB 1 EACH SL PRN (17:14)
[2017-03-05] MEDS ORDERED: Promethazine HCl 25 MG/ML VIAL IM PRN (17:14)
[2017-03-05] MEDS ORDERED: Guaifenesin DM 100-10/5 ML UDCUP PO PRN (17:14)
[2017-03-05] MEDS ORDERED: Fentanyl 100 MCG/2 ML VIAL SLOW IVP PRN ×2 (17:14)
[2017-03-05] MEDS ORDERED: Ondansetron HCl/PF 4 MG/2 ML Vial IVP PRN (17:14)
[2017-03-05] MEDS ORDERED: diphenhydrAMINE 25 MG CAP PO PRN (17:14)
[2017-03-05] MEDS: Carvedilol 3.125 MG TAB PO SCH (18:37)
[2017-03-05] MEDS: Terazosin HCl 5 MG CAP PO SCH (21:18)
[2017-03-05] MEDS: Atorvastatin Calcium 40 MG TAB PO SCH (21:18)
[2017-03-05] MEDS: Famotidine 20 MG TAB PO SCH (21:19)
[2017-03-06] MEDS: Ketorolac Tromethamine 30 MG/ML VIAL IVP SCH ×5 (00:21→22:58)
[2017-03-06] MEDS: Zonisamide 100 MG CAP PO SCH (05:59)
[2017-03-06] MEDS: carBAMazepine 200 MG TAB PO SCH ×2 (05:59→20:06)
[2017-03-06] MEDS: Carvedilol 3.125 MG TAB PO SCH ×2 (08:18→17:14)
[2017-03-06] MEDS: Potassium Chloride 20 MEQ TAB PO SCH (08:18)
[2017-03-06] MEDS: Aspirin 325 mg Enteric Coated Tablet PO SCH (08:18)
[2017-03-06] MEDS: Famciclovir 500 MG TAB PO SCH (08:18)
[2017-03-06] MEDS: Famotidine 20 MG TAB PO SCH ×2 (08:19→20:07)
[2017-03-06] MEDS: Lisinopril 5 MG TAB PO SCH (08:19)
[2017-03-06] MEDS: Furosemide 40 MG TAB PO SCH (08:19)
--- NOTE | 2017-03-06 08:56 | PDOC.PN ---
- Subjective Encounter Start Date: 03/06/17 Encounter Start Time: 07:20 he did not sleep good, otherwise doing OK, has NO BM for 3 days Patient seen and examined. No new complaints. No overnight events - Objective MAR Reviewed: Yes Vital Signs & Weight: Vital Signs (12 hours) Temp Pulse Resp BP Pulse Ox 03/06/17 08:19 88 03/06/17 08:12 98.3 F 88 20 115/68 92 L 03/06/17 04:00 98.8 F 67 18 138/64 95 03/06/17 00:00 98.5 F 73 16 128/60 95 03/05/17 21:00 18 94 L Weight Weight 228 lb 1.6 oz Most Recent Monitor Data Heart Rate from ECG 82 NIBP 149/57 NIBP BP-Mean 116 Respiration from ECG 16 SpO2 95 I&O: 03/05/17 03/06/17 03/07/17 06:59 06:59 06:59 Intake Total 798.1 1334 Output Total 3065 1740 Balance -2266.9 -406 Result Diagrams: 03/05/17 04:51 03/05/17 04:51 Additional Labs: Accuchecks 03/06/17 03/05/17 03/05/17 05:39 21:04 17:01 POC Glucose 130 H 147 H 146 H 03/05/17 09:36 POC Glucose 138 H EKG Reviewed by me: Yes (NSR) Phys Exam - Physical Examination Constitutional: NAD HEENT: PERRLA, moist MMs, sclera anicteric Neck: no JVD, supple central line, Respiratory: no wheezing, no rales, no rhonchi surgical site with dressing Cardiovascular: RRR, no significant murmur, no rub Gastrointestinal: soft, non-tender, no distention, positive bowel sounds betancourt+ Musculoskeletal: no edema, pulses present Neurological: non-focal, normal sensation Lymphatic: no nodes Psychiatric: normal affect Skin: no rash, normal turgor Dx/Plan (1) S/P CABG x 4 Status: Acute (2) CAD (coronary artery disease) Code(s): I25.10 - ATHSCL HEART DISEASE OF [place] CORONARY ARTERY W/O ANG PCTRS Status: Acute (3) NSTEMI (non-ST elevated myocardial infarction) Code(s): I21.4 - NON-ST ELEVATION (NSTEMI) MYOCARDIAL INFARCTION Status: Acute (4) DM2 (diabetes mellitus, type 2) Status: Chronic (5) Epilepsy Code(s): G40.909 - EPILEPSY, UNSP, NOT INTRACTABLE, WITHOUT STATUS EPILEPTICUS Status: Chronic (6) GERD (gastroesophageal reflux disease) Code(s): K21.9 - GASTRO-ESOPHAGEAL REFLUX DISEASE WITHOUT ESOPHAGITIS Status: Chronic (7) HLD (hyperlipidemia) Code(s): E78.5 - HYPERLIPIDEMIA, UNSPECIFIED Status: Chronic (8) HTN (hypertension) Code(s): I10 - ESSENTIAL (PRIMARY) HYPERTENSION Status: Chronic (9) Ischemic cardiomyopathy Code(s): I25.5 - ISCHEMIC CARDIOMYOPATHY Status: Chronic Comment: EF 35-40% (10) Obesity (BMI 30.0-34.9) Code(s): E66.9 - OBESITY, UNSPECIFIED Status: Chronic - Plan cont current plan of care, plan discussed w/ family * spoke with son and updated treatment plan * continue post operative care as per cardiology and CT surgeon * medication reviewed as below * symptomatic treatment * cardiac rehab. * PRN stool softener * selected home meds Review of Systems - Review of Systems Constitutional: negative: Fever, Chills, Sweats, Weakness, Malaise, Other Eyes: negative: Pain, Vision Change, Conjunctivae Inflammation, Eyelid Inflammation, Redness, Other ENT: negative: Ear Pain, Ear Discharge, Nose Pain, Nose Discharge, Nose Congestion, Mouth Pain, Mouth Swelling, Throat Pain, Throat Swelling, Other Respiratory: negative: Cough, Dry, Shortness of Breath, Hemoptysis, SOB with Excertion, Pleuritic Pain, Sputum, Wheezing Cardiovascular: negative: Chest Pain, Palpitations, Orthopnea, Paroxysmal Noc. Dyspnea, Edema, Light Headedness, Other Gastrointestinal: Constipation. negative: Nausea, Vomiting, Abdominal Pain, Diarrhea, Melena, Hematochezia, Other Genitourinary: negative: Dysuria, Frequency, Incontinence, Hematuria, Retention , Other Musculoskeletal: negative: Neck Pain, Shoulder Pain, Arm Pain, Back Pain, Hand Pain, Leg Pain, Foot Pain, Other Skin: negative: Rash, Lesions, [place], Bruising, Other - Medications/Allergies Allergies/Adverse Reactions: Allergies Allergy/AdvReac Type Severity Reaction Status Date / Time acyclovir Allergy Verified 08/12/15 09:31 divalproex sodium Allergy Verified 08/12/15 09:06 [From Depakote] phenytoin sodium Allergy Verified 08/12/15 09:06 [From Dilantin] phenytoin sodium extended Allergy Verified 08/12/15 09:06 [From Dilantin] valacyclovir Allergy Verified 08/12/15 09:31 Medications: Current Medications Acetaminophen (Tylenol) 650 mg PO Q6H PRN PRN Reason: Headache/Fever or Pain Hydrocodone Bitart/Acetaminophen ([place] 5/325) 1 tab PO Q4H PRN PRN Reason: Moderate Pain (4-6) Hydrocodone Bitart/Acetaminophen (Krypton 5/325) 2 tab PO Q4H PRN PRN Reason: Severe Pain (7-10) Last Admin: 03/05/17 18:36 Dose: 2 tab Al Hydroxide/Mg Hydroxide (Maalox) 30 ml PO Q4H PRN PRN Reason: Indigestion Albuterol/Ipratropium (Duoneb) 3 ml NEB [id number] PRN PRN Reason: Respiratory Distress Artificial Tears (Tears Naturale) 0 drop EA EYE PRN PRN PRN Reason: Dry Eyes Aspirin (Ecotrin) 325 mg PO DAILY [facility] Last Admin: 03/06/17 08:18 Dose: 325 mg Atorvastatin Calcium (Lipitor) 40 mg PO [facility] Last Admin: 03/05/17 21:18 Dose: 40 mg Bisacodyl (Dulcolax) 10 mg PO Q12H PRN PRN Reason: Constipation Bisacodyl (Dulcolax) 10 mg PA Q12H PRN PRN Reason: Constipation Carbamazepine (Tegretol) 400 mg PO [facility] Last Admin: 03/05/17 21:18 Dose: 400 mg Carbamazepine (Tegretol) 200 mg PO 0600 [facility] Last Admin: 03/06/17 05:59 Dose: 200 mg Carvedilol (Coreg) 3.125 mg PO BID-[facility] Last Admin: 03/06/17 08:18 Dose: 3.125 mg Diphenhydramine HCl (Benadryl) 25 mg PO Q6H PRN PRN Reason: Itching & Insomnia or Tonio Guille Famciclovir (Famvir) 250 mg PO DAILY [facility] Last Admin: 03/06/17 08:18 Dose: 250 mg Famotidine (Pepcid) 20 mg PO BID [facility] Last Admin: 03/06/17 08:19 Dose: 20 mg Fentanyl (Sublimaze) 25 mcg SLOW IVP Q2H PRN PRN Reason: Moderate breakthrough pain Fentanyl (Sublimaze) 50 mcg SLOW IVP Q2H PRN PRN Reason: Severe breakthrough pain Furosemide (Lasix) 40 mg PO DAILY [facility] Last Admin: 03/06/17 08:19 Dose: 40 mg Guaifenesin/Dextromethorphan (Robitussin Dm) 15 ml PO Q4H PRN PRN Reason: Cough Hydralazine HCl (Apresoline) 10 mg SLOW IVP Q6H PRN PRN Reason: To Maintain SBP< 140mmHG Ketorolac Tromethamine (Toradol) 15 mg IVP Q6HR [facility] Stop: 03/07/17 18:01 Last Admin: 03/06/17 05:59 Dose: 15 mg Lisinopril (Zestril) 5 mg PO DAILY [facility] Last Admin: 03/06/17 08:19 Dose: 5 mg Magnesium Hydroxide (Milk Of Magnesium) 30 ml PO Q12H PRN PRN Reason: Constipation Mineral Oil (Fleet Mineral Oil) 133 ml PA DAILYPRN PRN PRN Reason: Constipation Nitroglycerin (Nitrostat) 0.4 mg SL Q5MIN PRN PRN Reason: Chest Pain Ondansetron HCl (Zofran) 4 mg IVP Q6H PRN PRN Reason: Nausea/Vomiting Potassium Chloride (K-Dur) 20 meq PO QAM-WM [facility] Last Admin: 03/06/17 08:18 Dose: 20 meq Promethazine HCl (Phenergan) 6.25 mg IM Q4H PRN PRN Reason: Nausea/Vomiting Sodium Chloride (Flush - Normal Saline) 10 ml IVF PRN PRN PRN Reason: Saline Flush Terazosin HCl (Hytrin) 5 mg PO HS [facility] Last Admin: 03/05/17 21:18 Dose: 5 mg Zonisamide (Zonegran) 100 mg PO 0600 [facility] Last Admin: 03/06/17 05:59 Dose: 100 mg
[2017-03-06] MEDS ORDERED: Fleet Enema 133 ML BOT PR PRN (08:58)
[2017-03-06] MEDS ORDERED: Diabetic Tussin 200 MG/10 ML UDCUP PO PRN (08:58)
[2017-03-06] MEDS ORDERED: Senokot 8.6 MG TAB PO PRN (08:58)
--- NOTE | 2017-03-06 15:02 | PDOC.CTH ---
Cardiology Progress Note - Subjective Doing well. Walking around with PT without issues. - Objective Vital Signs Temp Pulse Resp BP BP Pulse Ox 03/06/17 11:28 98.8 F 80 24 H 125/61 94 L 03/06/17 08:19 88 03/06/17 08:12 98.3 F 88 20 115/68 92 L 03/06/17 04:00 98.8 F 67 18 138/64 95 Weight 228 lb 1.6 oz 03/05/17 03/06/17 03/07/17 06:59 06:59 06:59 Intake Total 798.1 1334 Output Total 3065 1740 10 Balance -2266.9 -406 -10 - Physical Examination General/Neuro: alert & oriented x3, NAD Neck: no JVD present Lungs: CTA, unlabored respirations Heart: RRR Abdomen: NT/ND Extremities: + edema B (1+) - Telemetry Telemetry Rhythm: NSR - Labs Result Diagrams: 03/05/17 04:51 03/05/17 04:51 Troponin/CKMB CK-MB (CK-2) 5.3 ng/mL (0-6.6) 02/28/17 07:35 Troponin I 0.825 ng/mL (< 0.028) H* 02/28/17 14:15 - Assessment/Plan 1. NSTEMI 2. Syncope. 3. Multivessel CAD 4. S/p CABG 5. Seizure disorder. PLAN: - Continue to increase PT as tolerated. - Continue ASA/statin/BB/ACEI
[2017-03-06] MEDS: Atorvastatin Calcium 40 MG TAB PO SCH (20:06)
[2017-03-06] MEDS: Terazosin HCl 5 MG CAP PO SCH (20:06)
[2017-03-07] MEDS: Ketorolac Tromethamine 30 MG/ML VIAL IVP SCH ×3 (05:30→17:23)
[2017-03-07] MEDS: carBAMazepine 200 MG TAB PO SCH ×2 (05:30→20:17)
[2017-03-07] MEDS: Zonisamide 100 MG CAP PO SCH (05:38)
--- NOTE | 2017-03-07 05:56 | PDOC.PN ---
- Subjective Encounter Start Date: 03/07/17 Encounter Start Time: 06:30 Patient seen and examined. No new complaints. No overnight events has No BM yet - Objective MAR Reviewed: Yes Vital Signs & Weight: Vital Signs (12 hours) Temp Pulse Resp BP Pulse Ox 03/07/17 04:00 98.7 F 80 20 132/61 95 03/06/17 20:05 98.8 F 81 24 H 130/68 94 L Weight Weight 7.923 oz Most Recent Monitor Data Heart Rate from ECG 82 NIBP 149/57 NIBP BP-Mean 116 Respiration from ECG 16 SpO2 95 I&O: 03/05/17 03/06/17 03/07/17 06:59 06:59 06:59 Intake Total 798.1 1334 720 Output Total 3065 1740 810 Balance -2266.9 -406 -90 Result Diagrams: 03/05/17 04:51 03/05/17 04:51 Additional Labs: Accuchecks 03/06/17 03/06/17 03/06/17 20:39 16:40 10:50 POC Glucose 154 H 190 H 134 H 03/06/17 05:39 POC Glucose 130 H EKG Reviewed by me: Yes (NSR) Phys Exam - Physical Examination Constitutional: NAD HEENT: moist MMs, sclera anicteric Neck: no JVD, supple Respiratory: no wheezing, no rales, no rhonchi Cardiovascular: RRR, no significant murmur, no rub Gastrointestinal: soft, non-tender, no distention, positive bowel sounds Musculoskeletal: no edema, pulses present Neurological: non-focal, normal sensation Psychiatric: normal affect, A&O x 3 Skin: no rash, normal turgor Dx/Plan (1) S/P CABG x 4 Status: Acute (2) CAD (coronary artery disease) Code(s): I25.10 - ATHSCL HEART DISEASE OF [place] CORONARY ARTERY W/O ANG PCTRS Status: Acute (3) NSTEMI (non-ST elevated myocardial infarction) Code(s): I21.4 - NON-ST ELEVATION (NSTEMI) MYOCARDIAL INFARCTION Status: Acute (4) DM2 (diabetes mellitus, type 2) Status: Chronic (5) Epilepsy Code(s): G40.909 - EPILEPSY, UNSP, NOT INTRACTABLE, WITHOUT STATUS EPILEPTICUS Status: Chronic (6) GERD (gastroesophageal reflux disease) Code(s): K21.9 - GASTRO-ESOPHAGEAL REFLUX DISEASE WITHOUT ESOPHAGITIS Status: Chronic (7) HLD (hyperlipidemia) Code(s): E78.5 - HYPERLIPIDEMIA, UNSPECIFIED Status: Chronic (8) HTN (hypertension) Code(s): I10 - ESSENTIAL (PRIMARY) HYPERTENSION Status: Chronic (9) Ischemic cardiomyopathy Code(s): I25.5 - ISCHEMIC CARDIOMYOPATHY Status: Chronic Comment: EF 35-40% (10) Obesity (BMI 30.0-34.9) Code(s): E66.9 - OBESITY, UNSPECIFIED Status: Chronic - Plan cont current plan of care, plan discussed w/ family * medication reviewed as below * symptomatic treatment * medically stable * doing well with cardiac rehab * surgical site clean and healthy * continue post CABG treatment. * will discharge when cardiology and CT surgeon OK, may be tomorrow * stool softener Review of Systems - Review of Systems ENT: negative: Ear Pain, Ear Discharge, Nose Pain, Nose Discharge, Nose Congestion, Mouth Pain, Mouth Swelling, Throat Pain, Throat Swelling, Other Respiratory: negative: Cough, Dry, Shortness of Breath, Hemoptysis, SOB with Excertion, Pleuritic Pain, Sputum, Wheezing Cardiovascular: negative: Chest Pain, Palpitations, Orthopnea, Paroxysmal Noc. Dyspnea, Edema, Light Headedness, Other Gastrointestinal: negative: Nausea, Vomiting, Abdominal Pain, Diarrhea, Constipation, Melena, Hematochezia, Other Genitourinary: negative: Dysuria, Frequency, Incontinence, Hematuria, Retention , Other Musculoskeletal: negative: Neck Pain, Shoulder Pain, Arm Pain, Back Pain, Hand Pain, Leg Pain, Foot Pain, Other Skin: negative: Rash, Lesions, [place], Bruising, Other - Medications/Allergies Allergies/Adverse Reactions: Allergies Allergy/AdvReac Type Severity Reaction Status Date / Time acyclovir Allergy Verified 08/12/15 09:31 divalproex sodium Allergy Verified 08/12/15 09:06 [From Depakote] phenytoin sodium Allergy Verified 08/12/15 09:06 [From Dilantin] phenytoin sodium extended Allergy Verified 08/12/15 09:06 [From Dilantin] valacyclovir Allergy Verified 08/12/15 09:31 Medications: Current Medications Acetaminophen (Tylenol) 650 mg PO Q6H PRN PRN Reason: Headache/Fever or Pain Hydrocodone Bitart/Acetaminophen ([place] 5/325) 1 tab PO Q4H PRN PRN Reason: Moderate Pain (4-6) Last Admin: 03/07/17 03:31 Dose: 1 tab Hydrocodone Bitart/Acetaminophen ([place] 5/325) 2 tab PO Q4H PRN PRN Reason: Severe Pain (7-10) Last Admin: 03/05/17 18:36 Dose: 2 tab Al Hydroxide/Mg Hydroxide (Maalox) 30 ml PO Q4H PRN PRN Reason: Indigestion Albuterol/Ipratropium (Duoneb) 3 ml NEB [id number] PRN PRN Reason: Respiratory Distress Artificial Tears (Tears Naturale) 0 drop EA EYE PRN PRN PRN Reason: Dry Eyes Aspirin (Ecotrin) 325 mg PO DAILY [facility] Last Admin: 03/06/17 08:18 Dose: 325 mg Atorvastatin Calcium (Lipitor) 40 mg PO HS [facility] Last Admin: 03/06/17 20:06 Dose: 40 mg Bisacodyl (Dulcolax) 10 mg PO Q12H PRN PRN Reason: Constipation Bisacodyl (Dulcolax) 10 mg [place] Q12H PRN PRN Reason: Constipation Carbamazepine (Tegretol) 400 mg PO HS [facility] Last Admin: 03/06/17 20:06 Dose: 400 mg Carbamazepine (Tegretol) 200 mg PO 0600 [facility] Last Admin: 03/07/17 05:30 Dose: 200 mg Carvedilol (Coreg) 3.125 mg PO BID-[facility] Last Admin: 03/06/17 17:14 Dose: 3.125 mg Cholecalciferol (Vitamin D3) 5,000 units PO DAILY [facility] Last Admin: 03/06/17 09:47 Dose: 5,000 units Diazepam (Valium) 5 mg PO BID PRN PRN Reason: Anxiety Diphenhydramine HCl (Benadryl) 25 mg PO Q6H PRN PRN Reason: Itching & Insomnia or Tonio Guille Famciclovir (Famvir) 250 mg PO DAILY [facility] Last Admin: 03/06/17 08:18 Dose: 250 mg Famotidine (Pepcid) 20 mg PO BID [facility] Last Admin: 03/06/17 20:07 Dose: 20 mg Fentanyl (Sublimaze) 25 mcg SLOW IVP Q2H PRN PRN Reason: Moderate breakthrough pain Fentanyl (Sublimaze) 50 mcg SLOW IVP Q2H PRN PRN Reason: Severe breakthrough pain Furosemide (Lasix) 40 mg PO DAILY [facility] Last Admin: 03/06/17 08:19 Dose: 40 mg Guaifenesin (Robitussin Sf) 200 mg PO Q4H PRN PRN Reason: Cough Guaifenesin/Dextromethorphan (Robitussin Dm) 15 ml PO Q4H PRN PRN Reason: Cough Last Admin: 03/07/17 03:21 Dose: 15 ml Hydralazine HCl (Apresoline) 10 mg SLOW IVP Q6H PRN PRN Reason: To Maintain SBP< 140mmHG Ketorolac Tromethamine (Toradol) 15 mg IVP Q6HR [facility] Stop: 03/07/17 18:01 Last Admin: 03/07/17 05:30 Dose: 15 mg Lisinopril (Zestril) 5 mg PO DAILY [facility] Last Admin: 03/06/17 08:19 Dose: 5 mg Magnesium Hydroxide (Milk Of Magnesium) 30 ml PO Q12H PRN PRN Reason: Constipation Mineral Oil (Fleet Mineral Oil) 133 ml [place] DAILYPRN PRN PRN Reason: Constipation Nitroglycerin (Nitrostat) 0.4 mg SL Q5MIN PRN PRN Reason: Chest Pain Ondansetron HCl (Zofran) 4 mg IVP Q6H PRN PRN Reason: Nausea/Vomiting Potassium Chloride (K-Dur) 20 meq PO QAM-[facility] Last Admin: 03/06/17 08:18 Dose: 20 meq Promethazine HCl (Phenergan) 6.25 mg IM Q4H PRN PRN Reason: Nausea/Vomiting Senna (Senokot) 2 tab PO HSPRN PRN PRN Reason: Constipation Sodium Chloride (Flush - Normal Saline) 10 ml IVF PRN PRN PRN Reason: Saline Flush Terazosin HCl (Hytrin) 5 mg PO HS [facility] Last Admin: 03/06/17 20:06 Dose: 5 mg Zonisamide (Zonegran) 100 mg PO 0600 [facility] Last Admin: 03/07/17 05:38 Dose: 100 mg
[2017-03-07] MEDS: Carvedilol 3.125 MG TAB PO SCH ×2 (08:42→17:23)
[2017-03-07] MEDS: Potassium Chloride 20 MEQ TAB PO SCH (08:43)
[2017-03-07] MEDS: Furosemide 40 MG TAB PO SCH (08:43)
[2017-03-07] MEDS: Lisinopril 5 MG TAB PO SCH (08:43)
[2017-03-07] MEDS: Aspirin 325 mg Enteric Coated Tablet PO SCH (08:43)
[2017-03-07] MEDS: Famotidine 20 MG TAB PO SCH ×2 (08:43→20:17)
[2017-03-07] MEDS: Famciclovir 500 MG TAB PO SCH (10:24)
--- NOTE | 2017-03-07 15:10 | PDOC.CTH ---
Cardiology Progress Note - Subjective Had nausea and vomited earlier today but better now. Still working with PT. - Objective Vital Signs Temp Pulse Pulse Pulse Resp BP BP 03/07/17 11:37 98.3 F 87 20 03/07/17 09:37 83 81 161/73 H 151/72 H 03/07/17 08:43 81 03/07/17 08:40 98.4 F 81 20 03/07/17 08:35 98.4 F 81 20 03/07/17 04:00 98.7 F 80 20 BP BP Pulse Ox Pulse Ox Pulse Ox 03/07/17 11:37 167/76 H 92 L 03/07/17 09:37 97 96 03/07/17 08:43 03/07/17 08:40 92 L 03/07/17 08:35 133/64 92 L 03/07/17 04:00 132/61 95 Weight 7.923 oz 03/06/17 03/07/17 03/08/17 06:59 06:59 06:59 Intake Total 1334 1200 Output Total 1740 1210 Balance -406 -10 - Physical Examination General/Neuro: alert & oriented x3, NAD Neck: no JVD present Lungs: unlabored respirations Heart: RRR Abdomen: NT/ND Extremities: + edema B (1+) - Telemetry Telemetry Rhythm: NSR - Labs Result Diagrams: 03/05/17 04:51 03/05/17 04:51 Troponin/CKMB CK-MB (CK-2) 5.3 ng/mL (0-6.6) 02/28/17 07:35 Troponin I 0.825 ng/mL (< 0.028) H* 02/28/17 14:15 - Assessment/Plan 1. NSTEMI 2. Syncope. 3. Multivessel CAD 4. S/p CABG 5. Seizure disorder. PLAN: - Continue to increase PT as tolerated. - Continue ASA/statin/BB/ACEI
[2017-03-07] MEDS: Terazosin HCl 5 MG CAP PO SCH (20:17)
[2017-03-07] MEDS: Diazepam 5 MG TAB PO PRN (20:17)
[2017-03-07] MEDS: Atorvastatin Calcium 40 MG TAB PO SCH (20:17)
[2017-03-08] MEDS: Zonisamide 100 MG CAP PO SCH (05:36)
[2017-03-08] MEDS: carBAMazepine 200 MG TAB PO SCH ×2 (05:37→21:53)
[2017-03-08] MEDS: Famciclovir 500 MG TAB PO SCH (08:27)
[2017-03-08] MEDS: Potassium Chloride 20 MEQ TAB PO SCH (08:28)
[2017-03-08] MEDS: Furosemide 40 MG TAB PO SCH (08:28)
[2017-03-08] MEDS: Famotidine 20 MG TAB PO SCH ×2 (08:28→21:54)
[2017-03-08] MEDS: Carvedilol 3.125 MG TAB PO SCH ×2 (08:28→16:54)
[2017-03-08] MEDS: Aspirin 325 mg Enteric Coated Tablet PO SCH (08:28)
[2017-03-08] MEDS: Diazepam 5 MG TAB PO PRN ×2 (08:29→21:53)
[2017-03-08] MEDS: Lisinopril 5 MG TAB PO SCH (08:29)
--- NOTE | 2017-03-08 12:45 | PDOC.PN ---
- Subjective Encounter Start Date: 03/08/17 Encounter Start Time: 07:45 Patient seen and examined. No new complaints. No overnight events - Objective MAR Reviewed: Yes Vital Signs & Weight: Vital Signs (12 hours) Temp Pulse Pulse Pulse Resp BP BP 03/08/17 11:53 98.2 F 86 18 03/08/17 08:55 94 90 140/63 137/60 03/08/17 08:29 81 03/08/17 07:30 98.6 F 81 18 03/08/17 07:24 98.6 F 81 18 03/08/17 03:10 99.0 F 84 20 BP BP Pulse Ox Pulse Ox 03/08/17 11:53 140/75 95 03/08/17 08:55 93 L 03/08/17 08:29 03/08/17 07:30 92 L 03/08/17 07:24 145/68 H 92 L 03/08/17 03:10 153/70 H 94 L Weight Weight 227 lb Most Recent Monitor Data Heart Rate from ECG 82 NIBP 149/57 NIBP BP-Mean 116 Respiration from ECG 16 SpO2 95 I&O: 03/07/17 03/08/17 03/09/17 06:59 06:59 06:59 Intake Total 1200 1360 Output Total 1210 100 Balance -10 1260 Result Diagrams: 03/05/17 04:51 03/05/17 04:51 Additional Labs: Accuchecks 03/04/17 03/04/17 03/04/17 14:36 14:09 13:52 POC Glucose 152 H 169 H 164 H 03/04/17 03/04/17 03/04/17 13:06 12:34 11:36 POC Glucose 144 H 148 H 104 EKG Reviewed by me: Yes (nSR) Phys Exam - Physical Examination Constitutional: NAD HEENT: PERRLA, moist MMs, sclera anicteric Neck: no JVD, supple Respiratory: no wheezing, no rales, no rhonchi Cardiovascular: RRR, no significant murmur, no rub surgical site clean Gastrointestinal: soft, non-tender, no distention, positive bowel sounds Musculoskeletal: no edema, pulses present Neurological: non-focal, normal sensation Lymphatic: no nodes Psychiatric: normal affect, A&O x 3 Skin: no rash, normal turgor Dx/Plan (1) S/P CABG x 4 Status: Acute (2) CAD (coronary artery disease) Code(s): I25.10 - ATHSCL HEART DISEASE OF [place] CORONARY ARTERY W/O ANG PCTRS Status: Acute (3) NSTEMI (non-ST elevated myocardial infarction) Code(s): I21.4 - NON-ST ELEVATION (NSTEMI) MYOCARDIAL INFARCTION Status: Acute (4) DM2 (diabetes mellitus, type 2) Status: Chronic (5) Epilepsy Code(s): G40.909 - EPILEPSY, UNSP, NOT INTRACTABLE, WITHOUT STATUS EPILEPTICUS Status: Chronic (6) GERD (gastroesophageal reflux disease) Code(s): K21.9 - GASTRO-ESOPHAGEAL REFLUX DISEASE WITHOUT ESOPHAGITIS Status: Chronic (7) HLD (hyperlipidemia) Code(s): E78.5 - HYPERLIPIDEMIA, UNSPECIFIED Status: Chronic (8) HTN (hypertension) Code(s): I10 - ESSENTIAL (PRIMARY) HYPERTENSION Status: Chronic (9) Ischemic cardiomyopathy Code(s): I25.5 - ISCHEMIC CARDIOMYOPATHY Status: Chronic Comment: EF 35-40% (10) Obesity (BMI 30.0-34.9) Code(s): E66.9 - OBESITY, UNSPECIFIED Status: Chronic - Plan cont current plan of care * doing well * continue cardiac rehab * medically stable with current treatment * continue post cabg treatment * expecting discharge tomorrow * medication reviewed as below * symptomatic treatment. Review of Systems - Review of Systems ENT: negative: Ear Pain, Ear Discharge, Nose Pain, Nose Discharge, Nose Congestion, Mouth Pain, Mouth Swelling, Throat Pain, Throat Swelling, Other Respiratory: negative: Cough, Dry, Shortness of Breath, Hemoptysis, SOB with Excertion, Pleuritic Pain, Sputum, Wheezing Cardiovascular: negative: Chest Pain, Palpitations, Orthopnea, Paroxysmal Noc. Dyspnea, Edema, Light Headedness, Other Gastrointestinal: negative: Nausea, Vomiting, Abdominal Pain, Diarrhea, Constipation, Melena, Hematochezia, Other Genitourinary: negative: Dysuria, Frequency, Incontinence, Hematuria, Retention , Other Musculoskeletal: negative: Neck Pain, Shoulder Pain, Arm Pain, Back Pain, Hand Pain, Leg Pain, Foot Pain, Other - Medications/Allergies Allergies/Adverse Reactions: Allergies Allergy/AdvReac Type Severity Reaction Status Date / Time acyclovir Allergy Verified 08/12/15 09:31 divalproex sodium Allergy Verified 08/12/15 09:06 [From Depakote] phenytoin sodium Allergy Verified 08/12/15 09:06 [From Dilantin] phenytoin sodium extended Allergy Verified 08/12/15 09:06 [From Dilantin] valacyclovir Allergy Verified 08/12/15 09:31 Medications: Current Medications Acetaminophen (Tylenol) 650 mg PO Q6H PRN PRN Reason: Headache/Fever or Pain Hydrocodone Bitart/Acetaminophen ([place] 5/325) 1 tab PO Q4H PRN PRN Reason: Moderate Pain (4-6) Last Admin: 03/07/17 03:31 Dose: 1 tab Hydrocodone Bitart/Acetaminophen ([place] 5/325) 2 tab PO Q4H PRN PRN Reason: Severe Pain (7-10) Last Admin: 03/05/17 18:36 Dose: 2 tab Al Hydroxide/Mg Hydroxide (Maalox) 30 ml PO Q4H PRN PRN Reason: Indigestion Last Admin: 03/08/17 06:20 Dose: 30 ml Albuterol/Ipratropium (Duoneb) 3 ml NEB [id number] PRN PRN Reason: Respiratory Distress Artificial Tears (Tears Naturale) 0 drop EA EYE PRN PRN PRN Reason: Dry Eyes Aspirin (Ecotrin) 325 mg PO DAILY [facility] Last Admin: 03/08/17 08:28 Dose: 325 mg Atorvastatin Calcium (Lipitor) 40 mg PO HS [facility] Last Admin: 03/07/17 20:17 Dose: 40 mg Bisacodyl (Dulcolax) 10 mg PO Q12H PRN PRN Reason: Constipation Last Admin: 03/07/17 08:42 Dose: 10 mg Bisacodyl (Dulcolax) 10 mg [place] Q12H PRN PRN Reason: Constipation Carbamazepine (Tegretol) 400 mg PO HS [facility] Last Admin: 03/07/17 20:17 Dose: 400 mg Carbamazepine (Tegretol) 200 mg PO 0600 [facility] Last Admin: 03/08/17 05:37 Dose: 200 mg Carvedilol (Coreg) 3.125 mg PO BID-[facility] Last Admin: 03/08/17 08:28 Dose: 3.125 mg Cholecalciferol (Vitamin D3) 5,000 units PO DAILY [facility] Last Admin: 03/08/17 08:28 Dose: 5,000 units Diazepam (Valium) 5 mg PO BID PRN PRN Reason: Anxiety Last Admin: 03/08/17 08:29 Dose: 5 mg Diphenhydramine HCl (Benadryl) 25 mg PO Q6H PRN PRN Reason: Itching & Insomnia or Tonio Guille Famciclovir (Famvir) 250 mg PO DAILY [facility] Last Admin: 03/08/17 08:27 Dose: 250 mg Famotidine (Pepcid) 20 mg PO BID [facility] Last Admin: 03/08/17 08:28 Dose: 20 mg Fentanyl (Sublimaze) 25 mcg SLOW IVP Q2H PRN PRN Reason: Moderate breakthrough pain Fentanyl (Sublimaze) 50 mcg SLOW IVP Q2H PRN PRN Reason: Severe breakthrough pain Furosemide (Lasix) 40 mg PO DAILY [facility] Last Admin: 03/08/17 08:28 Dose: 40 mg Guaifenesin (Robitussin Sf) 200 mg PO Q4H PRN PRN Reason: Cough Guaifenesin/Dextromethorphan (Robitussin Dm) 15 ml PO Q4H PRN PRN Reason: Cough Last Admin: 03/07/17 03:21 Dose: 15 ml Hydralazine HCl (Apresoline) 10 mg SLOW IVP Q6H PRN PRN Reason: To Maintain SBP< 140mmHG Lisinopril (Zestril) 5 mg PO DAILY [facility] Last Admin: 03/08/17 08:29 Dose: 5 mg Magnesium Hydroxide (Milk Of Magnesium) 30 ml PO Q12H PRN PRN Reason: Constipation Mineral Oil (Fleet Mineral Oil) 133 ml [place] DAILYPRN PRN PRN Reason: Constipation Nitroglycerin (Nitrostat) 0.4 mg SL Q5MIN PRN PRN Reason: Chest Pain Ondansetron HCl (Zofran) 4 mg IVP Q6H PRN PRN Reason: Nausea/Vomiting Potassium Chloride (K-Dur) 20 meq PO QAM-[facility] Last Admin: 03/08/17 08:28 Dose: 20 meq Promethazine HCl (Phenergan) 6.25 mg IM Q4H PRN PRN Reason: Nausea/Vomiting Senna (Senokot) 2 tab PO HSPRN PRN PRN Reason: Constipation Sodium Chloride (Flush - Normal Saline) 10 ml IVF PRN PRN PRN Reason: Saline Flush Terazosin HCl (Hytrin) 5 mg PO HS [facility] Last Admin: 03/07/17 20:17 Dose: 5 mg Zonisamide (Zonegran) 100 mg PO 0600 [facility] Last Admin: 03/08/17 05:36 Dose: 100 mg
[2017-03-08 15:13] LABS: Oxyhemoglobin 97.6 % (94.0-97.0); Sodium 138 mmol/L (135-148)
[2017-03-08 15:13] LABS: Base Excess -3.6 mEq/L (0 (+/- 2.5)); O2 Content (venous) 6.9 VOL% (12.5-17.5); pH (venous) 7.31 (7.35-7.45)
[2017-03-08 15:13] LABS: Oxyhemoglobin 97.4 % (94.0-97.0); Sodium 140 mmol/L (135-148)
[2017-03-08 15:13] LABS: Oxyhemoglobin 97.7 % (94.0-97.0); Sodium 140 mmol/L (135-148)
[2017-03-08 15:15] LABS: Oxyhemoglobin 97.8 % (94.0-97.0); Sodium 141 mmol/L (135-148)
[2017-03-08 15:15] LABS: Oxyhemoglobin 97.2 % (94.0-97.0); Sodium 141 mmol/L (135-148)
[2017-03-08 15:15] LABS: Oxyhemoglobin 96.1 % (94.0-97.0); Sodium 143 mmol/L (135-148)
[2017-03-08] MEDS: Atorvastatin Calcium 40 MG TAB PO SCH (21:54)
[2017-03-08] MEDS: Terazosin HCl 5 MG CAP PO SCH (21:54)
[2017-03-09] MEDS: HYDROcodone/Acetaminophen 5/325 mg Tablet PO PRN (05:15)
[2017-03-09] MEDS: carBAMazepine 200 MG TAB PO SCH (05:17)
[2017-03-09] MEDS: Zonisamide 100 MG CAP PO SCH (05:50)
[2017-03-09 09:07] LABS: Oxyhemoglobin 97.3 % (94.0-97.0); Sodium 140 mmol/L (135-148)
[2017-03-09 09:08] LABS: Vent YES
[2017-03-09 09:11] LABS: Mode OR ABG
[2017-03-09 09:12] LABS: Mode OR ABG; Vent YES
[2017-03-09 09:13] LABS: Mode OR ABG; Vent YES
[2017-03-09 09:13] LABS: Mode OR ABG; Vent YES
[2017-03-09 09:14] LABS: Mode OR ABG; Vent YES
[2017-03-09 09:15] LABS: Mode OR ABG; Vent YES
[2017-03-09 09:15] LABS: Mode OR ABG; Vent YES
[2017-03-09] MEDS ORDERED: Carvedilol 3.125 MG TAB PO SCH (09:30)
[2017-03-09] MEDS: Potassium Chloride 20 MEQ TAB PO SCH (09:36)
[2017-03-09] MEDS: Famciclovir 500 MG TAB PO SCH (09:37)
[2017-03-09] MEDS: Lisinopril 5 MG TAB PO SCH (09:38)
[2017-03-09] MEDS: Furosemide 40 MG TAB PO SCH (09:39)
[2017-03-09] MEDS: Famotidine 20 MG TAB PO SCH (09:39)
[2017-03-09] MEDS: Aspirin 325 mg Enteric Coated Tablet PO SCH (09:39)
[2017-03-09] MEDS: Carvedilol 3.125 MG TAB PO SCH (10:00)
--- NOTE | 2017-03-09 10:27 | PDOC.PN ---
- Subjective Encounter Start Date: 03/09/17 Encounter Start Time: 07:40 Patient seen and examined. No new complaints. No overnight events - Objective MAR Reviewed: Yes Vital Signs & Weight: Vital Signs (12 hours) Temp Pulse Resp BP BP Pulse Ox 03/09/17 08:20 97.8 F 86 18 92 L 03/09/17 08:00 97.8 F 86 18 111/55 L 03/09/17 05:10 98.6 F 80 16 162/70 H 92 L 03/08/17 22:51 98.6 F 77 16 163/77 H 98 Weight Weight 216 lb Most Recent Monitor Data Heart Rate from ECG 82 NIBP 149/57 NIBP BP-Mean 116 Respiration from ECG 16 SpO2 95 I&O: 03/08/17 03/09/17 03/10/17 06:59 06:59 06:59 Intake Total 1360 360 Output Total 100 175 Balance 1260 185 Result Diagrams: 03/05/17 04:51 03/05/17 04:51 EKG Reviewed by me: Yes Phys Exam - Physical Examination Constitutional: NAD HEENT: PERRLA, moist MMs, sclera anicteric Neck: no JVD, supple Respiratory: no wheezing, no rales, no rhonchi Cardiovascular: RRR, no significant murmur, no rub Gastrointestinal: soft, non-tender, no distention, positive bowel sounds Musculoskeletal: no edema, pulses present Neurological: non-focal, normal sensation Lymphatic: no nodes Psychiatric: normal affect Skin: no rash, normal turgor Dx/Plan (1) S/P CABG x 4 Status: Acute (2) CAD (coronary artery disease) Code(s): I25.10 - ATHSCL HEART DISEASE OF [place] CORONARY ARTERY W/O ANG PCTRS Status: Acute (3) NSTEMI (non-ST elevated myocardial infarction) Code(s): I21.4 - NON-ST ELEVATION (NSTEMI) MYOCARDIAL INFARCTION Status: Acute (4) DM2 (diabetes mellitus, type 2) Status: Chronic (5) Epilepsy Code(s): G40.909 - EPILEPSY, UNSP, NOT INTRACTABLE, WITHOUT STATUS EPILEPTICUS Status: Chronic (6) GERD (gastroesophageal reflux disease) Code(s): K21.9 - GASTRO-ESOPHAGEAL REFLUX DISEASE WITHOUT ESOPHAGITIS Status: Chronic (7) HLD (hyperlipidemia) Code(s): E78.5 - HYPERLIPIDEMIA, UNSPECIFIED Status: Chronic (8) HTN (hypertension) Code(s): I10 - ESSENTIAL (PRIMARY) HYPERTENSION Status: Chronic (9) Ischemic cardiomyopathy Code(s): I25.5 - ISCHEMIC CARDIOMYOPATHY Status: Chronic Comment: EF 35-40% (10) Obesity (BMI 30.0-34.9) Code(s): E66.9 - OBESITY, UNSPECIFIED Status: Chronic - Plan cont current plan of care, plan discussed w/ family * stable for discharge * medication reviewed as below * symptomatic treatment * see discharge summery. Review of Systems - Review of Systems ENT: negative: Ear Pain, Ear Discharge, Nose Pain, Nose Discharge, Nose Congestion, Mouth Pain, Mouth Swelling, Throat Pain, Throat Swelling, Other Respiratory: negative: Cough, Dry, Shortness of Breath, Hemoptysis, SOB with Excertion, Pleuritic Pain, Sputum, Wheezing Cardiovascular: negative: Chest Pain, Palpitations, Orthopnea, Paroxysmal Noc. Dyspnea, Edema, Light Headedness, Other Gastrointestinal: negative: Nausea, Vomiting, Abdominal Pain, Diarrhea, Constipation, Melena, Hematochezia, Other Genitourinary: negative: Dysuria, Frequency, Incontinence, Hematuria, Retention , Other Musculoskeletal: negative: Neck Pain, Shoulder Pain, Arm Pain, Back Pain, Hand Pain, Leg Pain, Foot Pain, Other - Medications/Allergies Allergies/Adverse Reactions: Allergies Allergy/AdvReac Type Severity Reaction Status Date / Time acyclovir Allergy Verified 08/12/15 09:31 divalproex sodium Allergy Verified 08/12/15 09:06 [From Depakote] phenytoin sodium Allergy Verified 08/12/15 09:06 [From Dilantin] phenytoin sodium extended Allergy Verified 08/12/15 09:06 [From Dilantin] valacyclovir Allergy Verified 08/12/15 09:31 Medications: Current Medications Acetaminophen (Tylenol) 650 mg PO Q6H PRN PRN Reason: Headache/Fever or Pain Hydrocodone Bitart/Acetaminophen ([place] 5/325) 1 tab PO Q4H PRN PRN Reason: Moderate Pain (4-6) Last Admin: 03/07/17 03:31 Dose: 1 tab Hydrocodone Bitart/Acetaminophen ([place] 5/325) 2 tab PO Q4H PRN PRN Reason: Severe Pain (7-10) Last Admin: 03/09/17 05:15 Dose: 2 tab Al Hydroxide/Mg Hydroxide (Maalox) 30 ml PO Q4H PRN PRN Reason: Indigestion Last Admin: 03/08/17 06:20 Dose: 30 ml Albuterol/Ipratropium (Duoneb) 3 ml NEB [id number] PRN PRN Reason: Respiratory Distress Artificial Tears (Tears Naturale) 0 drop EA EYE PRN PRN PRN Reason: Dry Eyes Aspirin (Ecotrin) 325 mg PO DAILY [facility] Last Admin: 03/09/17 09:39 Dose: 325 mg Atorvastatin Calcium (Lipitor) 40 mg PO HS [facility] Last Admin: 03/08/17 21:54 Dose: 40 mg Bisacodyl (Dulcolax) 10 mg PO Q12H PRN PRN Reason: Constipation Last Admin: 03/07/17 08:42 Dose: 10 mg Bisacodyl (Dulcolax) 10 mg [place] Q12H PRN PRN Reason: Constipation Carbamazepine (Tegretol) 400 mg PO [facility] Last Admin: 03/08/17 21:53 Dose: 400 mg Carbamazepine (Tegretol) 200 mg PO 0600 [facility] Last Admin: 03/09/17 05:17 Dose: 200 mg [facility] Cholecalciferol (Vitamin D3) 5,000 units PO DAILY [facility] Last Admin: 03/09/17 09:38 Dose: 5,000 units Diazepam (Valium) 5 mg PO BID PRN PRN Reason: Anxiety Last Admin: 03/08/17 21:53 Dose: 5 mg Diphenhydramine HCl (Benadryl) 25 mg PO Q6H PRN PRN Reason: Itching & Insomnia or Tonio Guille Famciclovir (Famvir) 250 mg PO DAILY [facility] Last Admin: 03/09/17 09:37 Dose: 250 mg Famotidine (Pepcid) 20 mg PO BID [facility] Last Admin: 03/09/17 09:39 Dose: 20 mg Fentanyl (Sublimaze) 25 mcg SLOW IVP Q2H PRN PRN Reason: Moderate breakthrough pain Fentanyl (Sublimaze) 50 mcg SLOW IVP Q2H PRN PRN Reason: Severe breakthrough pain Furosemide (Lasix) 40 mg PO DAILY [facility] Last Admin: 03/09/17 09:39 Dose: 40 mg Guaifenesin (Robitussin Sf) 200 mg PO Q4H PRN PRN Reason: Cough Guaifenesin/Dextromethorphan (Robitussin Dm) 15 ml PO Q4H PRN PRN Reason: Cough Last Admin: 03/07/17 03:21 Dose: 15 ml Hydralazine HCl (Apresoline) 10 mg SLOW IVP Q6H PRN PRN Reason: To Maintain SBP< 140mmHG Lisinopril (Zestril) 5 mg PO DAILY [facility] Last Admin: 03/09/17 09:38 Dose: 5 mg Magnesium Hydroxide (Milk Of Magnesium) 30 ml PO Q12H PRN PRN Reason: Constipation Mineral Oil (Fleet Mineral Oil) 133 ml [place] DAILYPRN PRN PRN Reason: Constipation Nitroglycerin (Nitrostat) 0.4 mg SL Q5MIN PRN PRN Reason: Chest Pain Ondansetron HCl (Zofran) 4 mg IVP Q6H PRN PRN Reason: Nausea/Vomiting Potassium Chloride (K-Dur) 20 meq PO QAM-[facility] Last Admin: 03/09/17 09:36 Dose: 20 meq Promethazine HCl (Phenergan) 6.25 mg IM Q4H PRN PRN Reason: Nausea/Vomiting Senna (Senokot) 2 tab PO HSPRN PRN PRN Reason: Constipation Sodium Chloride (Flush - Normal Saline) 10 ml IVF PRN PRN PRN Reason: Saline Flush Last Admin: 03/09/17 09:40 Dose: 10 ml Terazosin HCl (Hytrin) 5 mg PO [facility] Last Admin: 03/08/17 21:54 Dose: 5 mg Zonisamide (Zonegran) 100 mg PO 0600 [facility] Last Admin: 03/09/17 05:50 Dose: 100 mg
--- NOTE | 2017-03-09 12:05 | DIS ---
DATE OF ADMISSION: 02/28/2017 DATE OF DISCHARGE: 03/09/2017 PRIMARY CARE PHYSICIAN: Rosanna León M.D. DISCHARGE DISPOSITION: Home. PRIMARY DISCHARGE DIAGNOSES: 1. ST elevation myocardial infarction. 2. Three-vessel coronary artery disease. 3. Status post coronary artery bypass graft x4. SECONDARY DISCHARGE DIAGNOSES: Vitamin D deficiency, gastroesophageal reflux disease, hypertension, epilepsy, diabetes type 2, hypertension, ischemic cardiomyopathy, obesity with BMI 34. PRIMARY PROCEDURE/OPERATION: Cardiac catheterization was done by Dr. Love and patient was found with 3-vessel coronary artery disease. CABG x4 was performed by Dr. Shabazz. RADIOLOGICAL INVESTIGATION: Chest x-ray on admission showed no acute cardiopulmonary process, though patient had cardiomegaly and mild pulmonary vascular congestion. CT dissection was negative for any dissection, it showed cirrhotic appearing liver with splenomegaly and ground glass opacity in both l ungs. SIGNIFICANT LABS: WBC 8.3, hemoglobin 10.0, platelet 111. INR 1.5. Sodium 138, potassium 4.1, BUN 21, creatinine 0.78, calcium 8.0. Urinalysis unremarkable. DISCHARGE MEDICATIONS: Aspirin 325 mg p.o. daily, Lipitor 40 mg p.o. at bedtime, Tegretol 200 mg p.o . b.i.d., Coreg 6.25 mg p.o. b.i.d., vitamin D3 of 5000 units p.o. daily, diazepam 5 mg p.o. b.i.d., famciclovir 250 mg p.o. daily, fluorometholone eyedrops daily, lisinopril 10 mg p.o. daily, omeprazol e 20 mg p.o. daily, Hytrin 5 mg p.o. daily, Zonegran 100 mg p.o. daily. CONTRAINDICATIONS: None. CODE STATUS: FULL CODE. INPATIENT CONSULTANTS: Dr. Dover was consulted for non-ST elevation AK. Dr. Shabazz was consulte d for CABG. Dr. Robles saw this patient because patient was in ICU. TEST RESULTS PENDING ON DISCHARGE: None. ALLERGIES: ACYCLOVIR, DEPAKOTE, SODIUM, DILANTIN. DISCHARGE PLAN: Post hospital, the patient will follow up with Dr. Mau Marte on 03/16/2017 at 4:0 0 p.m. Patient will follow up with Dr. Ivan Valdovinos on 04/22/2017 at 3:30 p.m. The patient will follow up with Dr. Shabazz in 2 weeks. The patient will follow up with outpatient cardiac rehabilitat ion. TEST RESULTS PENDING ON DISCHARGE: None. HOSPITAL COURSE: A 71-year-old male who was admitted by Dr. Stout, please see her H&P for further details. The patient came to the emergency room with left-sided arm pain, back pain, and some chest pain. He also had significantly abnormal troponin and he was clinically diagnosed with non-ST elevat ion AK. The patient was consulted by Cardiology. Cardiology did a cardiac catheterization and alex kimball was found with three-vessel coronary artery disease and patient was recommended to have a CABG don e. Dr. Shabazz decided to do CABG after discussion with the patient and family member. Patient underwent CABG x4 on 03/04/2017 and after that the patient was taken care of by Cardiology and cardiovascular surgeon in the CCU and subsequently at telemetry floor. At this point, the patient is doing very well. The patient is doing well with cardiac rehabilitation . He does not have any postoperative complication. His vitals remained stable and we adjusted blood pressure and cardiac medication as above. Today, Dr. Shabazz as well as Dr. Love cleared him for discharge. Family member has no concern to go home today. The patient is also doing very well. Th e patient is seen and examined at bedside today. Please see my progress note from today for further details. All new medication prescription given to patient's pharmacy, [facility] prescription given by Dr Berkley Shabazz. Please see my progress note from today for further detail. Plan of care discussed with the patient a nd family member at bedside as well. Total time spent on discharge day 31 minutes.
[2017-03-09 12:22] VITALS: BP 140/65; TEMP 97.9
[2017-03-09] MEDS ORDERED: Carvedilol 6.25 MG TAB PO SCH (17:00)
== END 2017-03-09 13:11 | disposition home or self-care (01) | DRG 234 ==
LOC: ERS 06:36 → ERHOLD 10:28 → OBSVTOIN 10:28 → 2NO 16:24 → CCU 03-04 08:27 → 2NO 03-05 20:02
PROVIDERS: ADMIT Internal Medicine; ATTEND Internal Medicine
PROC: 4A023N7 Measurement of Cardiac Sampling and Pressure, Left Heart, Percutaneous Approach (ICD-10-PCS; principal; 2017-03-01)
PROC: B2111ZZ Fluoroscopy of Multiple Coronary Arteries using Low Osmolar Contrast (ICD-10-PCS; 2017-03-01)
PROC: B2151ZZ Fluoroscopy of Left Heart using Low Osmolar Contrast (ICD-10-PCS; 2017-03-01)
PROC: 02110Z9 Bypass Coronary Artery, Two Arteries from Left Internal Mammary, Open Approach (ICD-10-PCS; 2017-03-04)
PROC: 021109W Bypass Coronary Artery, Two Arteries from Aorta with Autologous Venous Tissue, Open Approach (ICD-10-PCS; 2017-03-04)
PROC: 06BQ4ZZ Excision of Left Saphenous Vein, Percutaneous Endoscopic Approach (ICD-10-PCS; 2017-03-04)
PROC: 30233N1 Transfusion of Nonautologous Red Blood Cells into Peripheral Vein, Percutaneous Approach (ICD-10-PCS; 2017-03-04)
PROC: 5A1221Z Performance of Cardiac Output, Continuous (ICD-10-PCS; 2017-03-04)
DX: I21.4 Non-ST elevation (NSTEMI) myocardial infarction (principal); I42.9 Cardiomyopathy, unspecified; I11.0 Hypertensive heart disease with heart failure; I50.22 Chronic systolic (congestive) heart failure; B19.10 Unspecified viral hepatitis B without hepatic coma; E11.9 Type 2 diabetes mellitus without complications; G40.909 Epilepsy, unspecified, not intractable, without status epilepticus; I25.10 Atherosclerotic heart disease of native coronary artery without angina pectoris; I25.5 Ischemic cardiomyopathy; E55.9 Vitamin D deficiency, unspecified; K21.9 Gastro-esophageal reflux disease without esophagitis; E66.9 Obesity, unspecified; Z68.34 Body mass index [BMI] 34.0-34.9, adult; Z87.891 Personal history of nicotine dependence; E78.5 Hyperlipidemia, unspecified; Z68.32 Body mass index [BMI] 32.0-32.9, adult
CPT/HCPCS: 36415; 36416; 36430; 71010; 71020; 71275; 80048; 80053; 80061; 81001; 82550; 82553; 82805; 83735; 83880; 84484; 85014; 85018; 85025; 85347; 85610; 85730; 86850; 86900; 86901; 93005; 93010; 93458; 93798; 94002; 94150; 94760; 96372; 96374; 99152; 99153; A4216; C1769; J0360; J1642; J1644; J1650; J1815; J1885; J1940; J2001; J2250; J2405; J2704; J2720; J3010; J3370; J3480; J7050; P9016; P9035; P9045; S0017; S0028

== ENCOUNTER 2017-06-24 17:45 | Observation (INO) | payer MEDICARE ==
--- NOTE | 2017-06-24 18:54 | RAD ---
THREE VIEWS OF THE RIGHT WRIST 06/24/17 COMPARISON: None. HISTORY: Right wrist pain after fall. FINDINGS: Three views right wrist shows no evidence of acute fracture or dislocation. Mild soft tissue swelling is seen. No degenerative changes are present. IMPRESSION: No evidence of acute osseous abnormality. POS: [facility]
[2017-06-24 20:47] LABS: #Lymphocytes 1.7 thou/uL (1.20-3.40); #Monocytes 0.4 thou/uL (0.11-0.59); #Neutrophils 4.2 thou/uL (1.40-6.50); %Basophils 0.3 % (0.0-1.0); %Eosinophils 0.1 % (0.0-10.0); %Lymphocytes 27.2 % (21.0-51.0); %Monocytes 6.4 % (0.0-10.0); Mean Corpuscular HGB CONC 33.2 g/dL (32.0-36.0); Mean Corpuscular Hemoglobin 26.6 pg (27.0-31.0); Mean Corpuscular Volume 80.1 fl (80.0-94.0); Mean Platelet Volume 7.9 fL (7.4-10.4); Platelet Count 127 thou/uL (130-400); Red Blood Cell (RBC) Count 4.51 mill/uL (4.70-6.10); White Blood Cell (WBC) Count 6.3 thou/uL (4.8-10.8)
[2017-06-24 20:56] LABS: INR-International Normal Ratio 1.1; PTT 33.5 SEC (22.9-36.1); Prothrombin Time 14.6 SEC (12.0-14.7)
[2017-06-24 21:12] LABS: Troponin I Less than 0.010 ng/mL (< 0.028)
[2017-06-24 21:17] LABS: ALT (SGPT) 26 U/L (8-55); AST (SGOT) 21 U/L (5-34); Albumin 3.8 g/dL (3.4-4.8); Alkaline Phosphatase 94 U/L (40-150); Anion Gap 10 mmol/L (10-20); BUN (Urea Nitrogen) 21 mg/dL (8.4-25.7); Bilirubin, Total 0.2 mg/dL (0.2-1.2); Calc. Creatinine Clearance 0 mL/min (70-130); Calcium 9.1 mg/dL (7.8-10.44); Carbon Dioxide 27 mmol/L (23-31); Chloride 99 mmol/L (98-107); Estimated GFR-MDRD 87; Globulin 2.8 g/dL (2.4-3.5); Glucose 146 mg/dL (83-110); Magnesium 2.2 mg/dL (1.6-2.6); Potassium 3.8 mmol/L (3.5-5.1); Protein, Total 6.6 g/dL (5.8-8.1); Sodium 132 mmol/L (136-145)
[2017-06-24 22:03] LABS: Bilirubin Negative (Negative); Blood, Urine Negative (Negative); Clarity CLEAR (Clear); Glucose, Urine (Dipstick) Negative (Negative); Leukocyte Negative (Negative); Nitrite Negative (Negative); Protein, Urine (Dipstick) Negative (Neg-Trace); Specific Gravity, Urine 1.021 (1.002-1.036)
--- NOTE | 2017-06-24 22:09 | CT ---
CT OF THE BRAIN WITHOUT CONTRAST: 06/24/17 COMPARISON: 09/26/16. HISTORY: Syncope. TECHNIQUE: Multiple contiguous axial images were obtained in a CT of the brain without contrast. FINDINGS: The brain is normal in morphology and attenuation without focal lesions or confluent areas of infarct ion. There is no evidence of hydrocephalus, intracranial hemorrhage, or extra-axial fluid collection. The calvarium and overlying soft tissues are unremarkable. The visualized paranasal sinuses and masto id air cells are well aerated. IMPRESSION: No evidence of acute intracranial abnormality. POS: [facility]
--- NOTE | 2017-06-24 23:02 | CT ---
CT OF THE CERVICAL SPINE 06/24/17 COMPARISON: None. HISTORY: Syncope. Patient fell and hit head on Wednesday. Neck pain. TECHNIQUE: Multiple contiguous axial images were obtained in a CT of the cervical spine without contrast. Sagitt al and coronal reformats were performed. FINDINGS: There are moderate degenerative changes in the cervical spine. The vertebral bodies demonstrate gila l height and alignment without acute fracture or subluxation. No prevertebral soft tissue swelling is seen. The posterior facets are well aligned. Normal alignment of the skull base with the cervical spine is seen. IMPRESSION: No evidence of acute osseous abnormality of the cervical spine. POS: [facility]
[2017-06-25] MEDS ORDERED: Ondansetron ODT 4 MG TAB SL PRN (01:42)
[2017-06-25] MEDS ORDERED: Acetaminophen 325 MG TAB PO PRN ×2 (01:42→08:04)
[2017-06-25] MEDS ORDERED: Ondansetron HCl/PF 4 MG/2 ML Vial IVP PRN ×2 (01:42→08:04)
[2017-06-25 02:29] VITALS: BMI 29.9
[2017-06-25] MEDS ORDERED: HYDROcodone/Acetaminophen 10/325 mg Tablet PO PRN (08:04)
[2017-06-25] MEDS ORDERED: HumaLOG 300 UNITS/3 ML VIAL SC PRN (08:04)
[2017-06-25] MEDS ORDERED: Dextrose 50% Abboject 50 ML SYRINGE SLOW IVP PRN (08:04)
[2017-06-25] MEDS ORDERED: HYDROcodone/Acetaminophen 5/325 mg Tablet PO PRN (08:04)
[2017-06-25] MEDS ORDERED: Dextrose 5% in Water 1,000 ML IV PRN (08:04)
[2017-06-25] MEDS ORDERED: Ondansetron ODT 4 MG TAB PO PRN (08:04)
[2017-06-25 08:49] LABS: Troponin I Less than 0.010 ng/mL (< 0.028)
[2017-06-25] MEDS ORDERED: hydrALAZINE 20 MG/ML VIAL SLOW IVP PRN (10:26)
[2017-06-25] MEDS ORDERED: Furosemide 20 MG TAB PO SCH (11:15)
[2017-06-25] MEDS ORDERED: Lisinopril 10 MG TAB PO SCH (11:15)
[2017-06-25 17:19] LABS: CKMB 2.2 ng/mL (0-6.6); Troponin I Less than 0.010 ng/mL (< 0.028)
[2017-06-25] MEDS: Lisinopril 10 MG TAB PO SCH (20:10)
[2017-06-25] MEDS: Zonisamide 100 MG CAP PO SCH (20:11)
[2017-06-25] MEDS ORDERED: Terazosin HCl 5 MG CAP PO SCH (21:00)
[2017-06-25] MEDS ORDERED: Atorvastatin Calcium 40 MG TAB PO SCH (21:00)
[2017-06-25] MEDS ORDERED: carBAMazepine 200 MG TAB PO SCH (21:00)
--- NOTE | 2017-06-26 00:34 | CON ---
DATE OF CONSULTATION: 06/25/2017 HISTORY OF PRESENT ILLNESS: Carrillo Bahena is a 71-year-old white male that initially was evaluated in the office in 04/2016 for episodes of falling versus syncope. He had head trauma as a 2-year-old and at age 15 developed seizures. Apparently, his last 2 seizures were in 2010. He states that he had been having falls for over 50 years. He would be standing and suddenly finding himself on the ground but he would remember falling and even at times carry on a conversation while he is falling. He never lost consciousness with those episodes. He also at that time complained of chest tightness with exertion, lasting 5 minutes. He underwent a 30-day monitor, which did not reveal any episodes of arrhythmias. Also, as I recall, he did not have any falls. He was to return for followup and arrangements were going to be made for a stress test ; however, he never did return. He then was again seen in 02/2017. He had another fall while he was in the shower and hit the back of his head. He apparently lost consciousness with this episode. Also, he would complain of chest tightness and pressure that mostly occur when he was drinking fluids. At times, this would radiate into his left arm. He presented to the emergency room and he did have a troponin I of up to 0.825; however, MB was normal. He underwent cardiac catheterization due to the elevated enzymes. He had anteroapical and inferoapical dyskinesis with ejection fraction of 35% to 40%. There was a 50% left main, 50% proximal LAD, 90% distal LAD, 80% mid circumflex, 20% first obtuse marginal and a 70% lesion in the right posterolateral. He then underwent CABG x4 by Dr. Shabazz with SHAFER in sequence to the mid and distal LAD, vein graft to the diagonal and vein graft to the obtuse marginal. Postoperatively, he did well and was placed on carvedilol and lisinopril due to his left ventricular dysfunction. He has been seen once in the office since bypass - on 05/25/2017. He stated he was becoming stronger at cardiac rehabilitation. Also, at that time, he had not had any further falls after his CABG. He did have some lower extremity edema and was placed on furosemide 20 mg daily with his ejection fraction of 35% to 40 %. Also, his LDL was still 95 on atorvastatin 40 and this was increased to atorvastatin 80. Over the last week, he has had 3 or 4 more falls. Again with these episodes, he denies any vertiginous symptoms. He states he just suddenly falls, he remembers falling to the floor, remembers hitting the floor. He had another such episode and was brought to the emergency room by his family. It does not sound as if he ever loses consciousness with these episodes. It is of note that on 09/26/2016 in the hospital, he was evaluated by Dr. Ruth Pittman, neurologist. The feeling was that his episode at that time was due to benign positional vertigo. It was not felt this was due to seizures. PAST MEDICAL HISTORY: Hypertension, diabetes, hypercholesterolemia, history of seizure disorder, macular degeneration, hepatitis B, and history of shingles. OPERATIONS: Include CABG, left ankle fracture ORIF, biopsy for skin cancer and vasectomy. MEDICATIONS: When he was seen in the office include diazepam 5 mg b.i.d., lisinopril 10 mg daily, omeprazole 20 daily, Roz 180 p.r.n., laxative 5 mg tablet daily, famciclovir 250 daily, aspirin 325 daily, carbamazepine 200 mg b.i.d., carvedilol 6.25 b.i.d., clonazepam 0.5 p.r.n., atorvastatin 80 mg daily , furosemide 20 mg daily. ALLERGIES: DILANTIN, ACYCLOVIR, DEPAKOTE, VALACYCLOVIR. SOCIAL HISTORY: He smoked until 1985. He does not drink alcohol. REVIEW OF SYSTEMS: Twelve-point review of systems otherwise unremarkable. PHYSICAL EXAMINATION: VITAL SIGNS: Blood pressure 169/79, pulse of 80. HEENT: PERRL. NECK: Supple. CHEST: Clear. CARDIAC: S1 and S2 are normal, without any S3, S4 or murmurs. Carotid upstrokes normal without bruits. ABDOMEN: Normal bowel sounds, without tenderness, organomegaly or masses. EXTREMITIES: Revealed no clubbing, cyanosis, or edema. NEUROLOGIC: Grossly intact. SKIN: Warm and dry. LABORATORY DATA: EKG revealed normal sinus rhythm with a rate of 59 per minute with left axis deviation, nonspecific intraventricular conduction delay with QRS of 140 milliseconds. Cardiac enzymes x3 are normal. Hemoglobin 12.0, hematocrit 36.1, white count 6300, platelets 127,000. INR 1.1. Sodium 132, potassium 3.8, chloride 99, carbon dioxide 27, BUN 21, creatinine 0.87, glucose 146. IMPRESSION: 1. Repetitive falls for the last 50 years. It does not sound as if he loses consciousness with these episodes. He has undergone 30-day monitor 1 year ago, which did not reveal any arrhythmias. 2. Status post coronary artery bypass graft x4 in 02/2017. 3. Ischemic cardiomyopathy with ejection fraction of 35% to 40% at the time of bypass surgery. Last office visit, he did have peripheral edema and Lasix 20 mg q.a.m. was added. 4. History of seizures, previously evaluated in the hospital in 09/26/2016 by Neurology. 5. Hypertension. 6. Hypercholesterolemia, under poor control with atorvastatin recently increased to 80 mg. 7. Diabetes. 8. Former smoker. 9. Positive family history. 10. Hepatitis B. PLAN: Mr. Bahena will continue to be monitored. Echocardiogram has been ordered. His blood pressure has been under relatively poor control and his dose of lisinopril will be increased to 10 mg b.i.d. He will be continued on the carvedilol. If he does not have any significant arrhythmias over the next several days, then consideration should be given to an implantable loop recorder. Consideration also should be given to repeat neurological evaluation. (Previous neurological evaluation is somewhat hidden in that it is dated 09/26/2016 under consultation reports scanned.) [facility]
[2017-06-26 05:13] LABS: Cardiac Risk 3.3 (Less than 4.5)
[2017-06-26] MEDS: Zonisamide 100 MG CAP PO SCH (07:56)
[2017-06-26] MEDS: Lisinopril 10 MG TAB PO SCH (07:57)
[2017-06-26] MEDS ORDERED: Carvedilol 6.25 MG TAB PO SCH (08:00)
[2017-06-26] MEDS ORDERED: Lisinopril 10 MG TAB PO SCH (09:00)
[2017-06-26] MEDS ORDERED: Zonisamide 100 MG CAP PO SCH (09:00)
[2017-06-26] MEDS ORDERED: Aspirin 325 mg Enteric Coated Tablet PO SCH (09:00)
[2017-06-26] MEDS ORDERED: Fluorometholone 0.1% Ophth Soln 5 ml Bottle R EYE SCH (09:00)
[2017-06-26] MEDS ORDERED: carBAMazepine 200 MG TAB PO SCH (09:00)
[2017-06-26] MEDS ORDERED: Famciclovir 500 MG TAB PO SCH (09:00)
[2017-06-26] MEDS ORDERED: Furosemide 20 MG TAB PO SCH (09:00)
[2017-06-26] MEDS ORDERED: Diazepam 5 MG TAB PO SCH ×2 (11:45→21:00)
[2017-06-26 16:10] VITALS: BP 122/61; TEMP 97.9
[2017-06-27] MEDS ORDERED: Lisinopril 10 MG TAB PO SCH (09:00)
--- NOTE | 2017-06-27 17:39 | DIS ---
PRIMARY CARE PHYSICIAN: Dr. León. PRIMARY ASSOCIATE CHEMIST: Dr. Love. DATE OF ADMISSION: 06/25/2017 DATE OF DISCHARGE: 06/26/2017 DISCHARGE DIAGNOSES: 1. Orthostasis. 2. Coronary artery disease, status post 4-vessel coronary artery bypass graft 3 months ago. 3. Essential hypertension. 4. Seizure disorder without status epilepticus. 5. Symptomatic bradycardia. 6. Benign prostatic hypertrophy. 7. Gastroesophageal reflux disease. 8. Diet controlled diabetes mellitus, type 2. CONSULTATIONS: Cardiology, Dr. Bonifacio Love. PROCEDURES: A 2D echocardiogram on 06/25/2017 showed EF of 55% to 60%, diastolic dysfunction, mild M R, mild TR and mild PI. HISTORY AND PHYSICAL: Mr. Bahena is a 71-year-old gentleman with multiple falls over the last week p rior to admission. He presented in the emergency department and we were called for admission for syn cope workup. The patient was placed in observation by the manager non profit. I saw him in the morning of 06/25/2017. HOSPITAL COURSE: The patient was seen and examined by me. He was placed in observation on the obser vation unit. Serial cardiac biomarkers were obtained and remained negative. A 2D echocardiogram was ordered and Cardiology consultation was requested. The patient on my evaluation to be extremely bra dycardic with a heart rate in the high 50s to low 60s. His Coreg was held and he was seen by Cardiol patricia. That afternoon without his Coreg on board, the patient's blood pressure did spike up. Dr. Love d id increase his lisinopril to 10 mg p.o. b.i.d. Overnight, 06/25/2017 to 06/26/2017, the patient became hypotensive overnight. His carvedilol had be en continued. That morning, he is feeling better. I discontinued his lisinopril twice a day dosing and Bactrim once a day and so his morning dose was held. I discussed the case with Dr. Bonifacio murray about his orthostasis after his heart rate went up almost 20 beats per minute, going from lying to standing and his systolic blood pressure dropped almost 20 points and he was in agreement to cut mando k on the carvedilol to 3.125 mg p.o. b.i.d. Today, the patient's blood pressure remained stable and that afternoon he was stable for discharge with outpatient followup. PHYSICAL EXAMINATION: The patient was seen and examined multiple times on the day of discharge. Dis charge plan and disposition were discussed with the patient [id number] at the bedside. DISCHARGE MEDICATIONS: 1. Aspirin 325 mg daily. 2. Lipitor 40 mg p.o. at bedtime. 3. Calcium carbonate 1000 mg p.o. q.i.d. p.r.n. heartburn. 4. Carbamazepine 200 mg p.o. q.a.m. and 400 mg p.o. at bedtime. 5. Carvedilol decreased to 3.125 mg p.o. b.i.d., so new prescription was sent. 6. Vitamin D3 of 5000 units daily. 7. Clonazepam 0.5 mg p.o. daily to continue. 8. Valium 5 mg p.o. b.i.d. per home dosing. 9. Famvir 250 mg p.o. daily. 10. Fluorometholone 1 drop to right eye daily. 11. Lasix 20 mg p.o. q.a.m. 12. Hydrocodone 1-2 p.o. q.4 hours p.r.n. pain. 13. Vitron-C 1 tablet p.o. daily. 14. Lisinopril 10 mg daily. 15. Omeprazole 20 mg p.o. q.a.m. 16. Senna-S 2 tablets p.o. at bedtime. 17. Terazosin 5 mg p.o. q.p.m. 18. PreserVision soft gels 1 capsule p.o. b.i.d. 19. Zonisamide 100 mg p.o. daily or b.i.d. as previously ordered. FOLLOWUP APPOINTMENTS: 1. Primary care physician within a week, Dr. León. 2. Bonifacio Love in 1-2 weeks. DISCHARGE CONDITION: Stable. DISPOSITION: Will be discharged home via private vehicle. DISCHARGE ACTIVITY: Per cardiopulmonary limits. Getting up slowly and sitting up before getting up from the lying was recommended. DISCHARGE DIET: Heart healthy diabetic diet recommended.
--- NOTE | 2017-06-28 08:34 | HP ---
DATE OF ADMISSION: 06/25/2017 PRIMARY CARE PHYSICIAN: Rosanna León M.D. PRIMARY SWITCH CREW SUPERVISOR: Bonifacio Love M.D. TIME OF SERVICE: 08:40 CHIEF COMPLAINT: Recurrent falls. HISTORY OF PRESENT ILLNESS: Mr. Bahena is a pleasant 71-year-old white male with history of BPH, hyp ertension, hyperlipidemia, seizure disorder, diabetes mellitus type 2, diet controlled, and GERD who has had 7 falls over the last week. The patient's recent history is significant for coronary artery disease, status post CABG x4 vessels in 02/2017. He is started on new medications and subsequently h as been doing well in follow up. Over the last week or so, he has had multiple falls. Five days ago , he had one where he injured his head and neck and then on 06/24/2017, fell and situation he describ es as feeling like he was going to pass out, lights going on for a split seconds after he lowered him self to the floor and then to his bottom and then fell back onto his right wrist and sprained it. Th is happened at cardiac rehabilitation. He denies any true syncope. No convulsions. No bowel or carlos dder incontinence. No headaches, no visual changes, no numbness, tingling or paresis. He does have a history of coronary artery disease status post CABG in 02/2017 and apparently was diagnosed with ep ilepsy at the same time. The patient presented to the emergency department for evaluation. Workup was negative and we were ca lled for admission. accepted the patient as a hold over admit in the morning. [facility], the patient has not had any dizziness, numbness or tingling. Denies any other new complaints. PAST MEDICAL HISTORY: 1. BPH. 2. Hypertension. 3. Hyperlipidemia. 4. Seizure disorder. 5. GERD. 6. Diabetes mellitus type 2, diet controlled. 7. HSV 1. PAST SURGICAL HISTORY: 1. Left ankle pins. 2. Vasectomy. 3. Coronary artery bypass grafting x4 vessels in 02/2017. HOME MEDICATIONS: 1. Calcium carbonate 1 gram p.o. q.i.d. p.r.n. 2. Senna-S 2 tabs p.o. at bedtime. 3. Vitamin D3 5000 units daily. 4. Ocuvite one tablet p.o. b.i.d. 5. Aspirin 325 mg daily. 6. Vitamin C 1 tablet daily. 7. Fluorometholone 1 drop to right eye each daily. 8. Famvir 250 mg p.o. daily. 9. Terazosin 5 mg p.o. q.p.m. 10. Lisinopril 10 mg p.o. daily. 11. Atorvastatin 40 mg p.o. at bedtime. 12. Coreg 6.25 mg p.o. b.i.d. 13. Zonisamide 100 mg daily, recently increased to 100 mg b.i.d. 14. Omeprazole 20 mg p.o. daily. 15. Lasix 20 mg daily. 16. Carbamazepine 200 mg p.o. q.a.m. and 400 mg p.o. at bedtime, recently increased to 400 mg p.o. b .i.d. 17. Klonopin 0.5 mg p.o. as needed for anxiety. 18. Valium 5 mg p.o. b.i.d. p.r.n. 19. Stendal 5/325 one p.o. q.4 hours p.r.n. ALLERGIES: ACYCLOVIR, DEPAKOTE, DILANTIN, and VALCYTE. FAMILY HISTORY: Negative for clotting or bleeding disorder, no immune dysfunction. SOCIAL HISTORY: No habits x3. Lives at home with his . REVIEW OF SYSTEMS: A 10-point review of systems was performed and negative for all systems except as stated per HPI. PHYSICAL EXAMINATION: VITAL SIGNS: Temperature is 97.4, pulse 62, blood pressure 163/76, respiratory rate 20, satting 93% on room air. GENERAL: He is awake. He is alert. He is oriented x3. He is well-developed, well-nourished, white male who appears to be in zero distress. HEENT: Normocephalic, atraumatic. Pupils equal, round, reactive bilaterally. ENT: Mucous membranes moist. No visible lesion or thrush. NECK: Supple, without lymphadenopathy, JVD, or thyromegaly. LUNGS: Clear to auscultation bilaterally without wheezes, rales or rhonchi. He has good air movemen t with chest excursion. CARDIOVASCULAR: He is slightly bradycardic with heart rate of 60. He has normal S1, S2. I do not a ppreciate any murmurs. ABDOMEN: Soft, it is nontender, nondistended. There is no mass, no organomegaly. There is no rebou nd, rigidity or guarding. EXTREMITIES: Show no cyanosis, no clubbing, no edema. SKIN: Warm, moist and well perfused. There are no rashes or lesions. No injury to sites. MUSCULOSKELETAL: Normal to inspection. Large joints appear inflamed. There is good range of motion and no palpable effusions. NEUROLOGIC: Cranial nerves II-XII are grossly intact without any focal neurologic deficits. He has normal speech pattern. He has 5/5 strength in all 4 extremities. LABORATORY DATA: Sodium 132, potassium 3.8, chloride 97, bicarbonate 27, BUN 21, creatinine 0.87, gl ucose 146, and troponin I was negative. CK-MB is negative. INR was 1.1. Urinalysis was negative. Liver function appears within normal limits. CBC showed white count of 6.3, hemoglobin 12.0, hematocrit 33.1, and platelet count is 127. IMAGING DATA: 1. CT scan of the brain negative. 2. CT of the cervical spine was negative and right wrist films were negative for fracture. ASSESSMENT AND PLAN: 1. Recurrent falls. It sounds like the patient may be getting presyncopal. I will get serial cardi ac biomarkers. We will hold his beta beatriz therapy for now. We will notify Dr. Love of the lucio yuriy's arrival, and we will see how he does overnight. If blood pressure goes up, we will use p.r.n . hydralazine to bring his blood pressure back down. I think using a now may be contributing. 2. Benign prostatic hyperplasia. We will continue his terazosin and Flomax. 3. History of hypertension on lisinopril daily, Lasix, and carvedilol. We will continue carvedilol at present. 4. Seizure disorder, on zonisamide and carbamazepine. We will continue his home medications. 5. Gastroesophageal reflux disease, on omeprazole. We will continue. 6. Diabetes mellitus type 2, diet controlled. We will continue on diabetic diet insulin.
--- NOTE | 2017-07-03 22:58 | EKG ---
Test Reason : Blood Pressure : / mmHG Vent. Rate : 059 BPM Atrial Rate : 059 BPM P-R Int : 180 ms QRS Dur : 140 ms QT Int : 442 ms P-R-T Axes : 011 -71 023 degrees QTc Int : 437 ms Poor data quality, interpretation may be adversely affected Sinus bradycardia Left axis deviation Non-specific intra-ventricular conduction block Abnormal ECG Confirmed by CELESTINE MILAN, MARVEL ([id number]), movie editor ASTRID CROOKS ([id number]) on 07/03/2017 10:58:05 PM Referred By: Confirmed By:MARVEL SPRAGUE MD
== END 2017-06-26 17:05 | disposition home or self-care (01) ==
LOC: ERS 17:45 → 2SW 06-25 00:11
PROVIDERS: ADMIT Family Medicine; ATTEND Family Medicine
DX: R55 Syncope and collapse (principal); I25.10 Atherosclerotic heart disease of native coronary artery without angina pectoris; I10 Essential (primary) hypertension; G40.909 Epilepsy, unspecified, not intractable, without status epilepticus; N40.0 Benign prostatic hyperplasia without lower urinary tract symptoms; K21.9 Gastro-esophageal reflux disease without esophagitis; E11.9 Type 2 diabetes mellitus without complications; E78.5 Hyperlipidemia, unspecified; E78.00 Pure hypercholesterolemia, unspecified; I25.5 Ischemic cardiomyopathy; Z91.81 History of falling; Z87.891 Personal history of nicotine dependence; Z79.82 Long term (current) use of aspirin; Z79.899 Other long term (current) drug therapy; Z88.8 Allergy status to other drugs, medicaments and biological substances; Z88.1 Allergy status to other antibiotic agents; Z95.1 Presence of aortocoronary bypass graft
CPT/HCPCS: 70450; 72125; 73110; 80061; 81003; 82553 ×2; 82962 ×2; 83735; 84484 ×3; 85610; 85730; 93005; 93306; 96374; 97139 ×3; 99285; G0378; G8978; G8979; G8980; 36415; 36416; 80053; 84443; 85025; J0360; J2405

== ENCOUNTER 2017-07-12 20:34 | Emergency (ER) | payer MEDICARE ==
--- NOTE | 2017-07-12 21:06 | CT ---
CT BRAIN WITHOUT CONTRAST: INDICATIONS: History of seizure and fall. COMPARISON: 06/24/2017 FINDINGS: No acute infarct, hemorrhage, or hydrocephalus is present. The septum pellucidum and third ventricle are midline. The skull and extracranial soft tissues appear within normal limits. The mastoid air cells are clear. The paranasal sinuses are clear. IMPRESSION: No acute intracranial abnormality. POS: [facility]
--- NOTE | 2017-07-12 21:10 | CT ---
CT CERVICAL SPINE WITHOUT CONTRAST: INDICATIONS: History of seizure with fall and possible neck injury. COMPARISON: 06/24/2017 FINDINGS: There is diffuse osteopenia. There is multilevel spondylosis of the cervical spine. There is slight retrolisthesis of C3 on C4, which is stable. The craniocervical junction appears within normal limi ts. Multilevel spondylosis is stable. The osseous central canal is preserved. The lung apices are clear. There is a 1.5 cm hypodensity within the left thyroid gland. IMPRESSION: 1. No acute osseous abnormality. 2. Multilevel spondylosis of the cervical spine. 3. A 1.5 cm hypodensity of the left thyroid gland. Follow-up thyroid ultrasound is recommended due to the patient's age and size of the lesion. POS: [facility]
--- NOTE | 2017-07-12 21:36 | RAD ---
AP VIEW CHEST: INDICATIONS: Seizure. Fell on head. FINDINGS: There is stable cardiomegaly with prior post CABG change. The previously seen catheters in February 2017 are no longer present. The lungs are clear. No pleural effusion or pneumothorax is evident. N o acute osseous abnormality is noted. IMPRESSION: 1. Stable cardiomegaly. 2. No definite acute cardiopulmonary abnormality. POS: [facility]
[2017-07-12 21:39] LABS: Mean Corpuscular HGB CONC 33.1 g/dL (32.0-36.0); Mean Corpuscular Hemoglobin 26.9 pg (27.0-31.0); Red Blood Cell (RBC) Count 4.47 mill/uL (4.70-6.10); White Blood Cell (WBC) Count 6.1 thou/uL (4.8-10.8)
[2017-07-12 21:44] LABS: INR-International Normal Ratio 1.1; Prothrombin Time 14.8 SEC (12.0-14.7)
--- NOTE | 2017-07-12 21:44 | RAD ---
RIGHT WRIST FOUR VIEWS: INDICATIONS: Right wrist pain. FINDINGS: There is an external splint that slightly limits image detail. There is a comminuted, dorsally angul ated extraarticular fracture involving the distal radius. There is also suspicion for a mildly displ aced dorsal triquetral fracture. There is mild first CMC osteoarthrosis. IMPRESSION: 1. Dorsally impacted extraarticular distal radius fracture. 2. Findings suspicious for a mildly displaced triquetral fracture. 3. Limitations to exam due to the presence of a splint. POS: [facility]
[2017-07-12 21:45] LABS: PTT 31.7 SEC (22.9-36.1)
[2017-07-12 21:52] LABS: #Lymphocytes 1.1 thou/uL (1.20-3.40); #Monocytes 0.4 thou/uL (0.11-0.59); #Neutrophils 4.6 thou/uL (1.40-6.50); %Basophils 0.3 % (0.0-1.0); %Eosinophils 0.1 % (0.0-10.0); %Lymphocytes 18.7 % (21.0-51.0); %Monocytes 6.4 % (0.0-10.0); %Neutrophils 74.5 % (42.0-75.0); Mean Platelet Volume 7.8 fL (7.4-10.4); PLT Morphology Comment Appears Decreased; Platelet Count 115 thou/uL (130-400)
[2017-07-12 21:59] LABS: ALT (SGPT) 27 U/L (8-55); AST (SGOT) 22 U/L (5-34); Albumin 3.8 g/dL (3.4-4.8); Alkaline Phosphatase 100 U/L (40-150); Anion Gap 12 mmol/L (10-20); BUN (Urea Nitrogen) 22 mg/dL (8.4-25.7); Bilirubin, Total Less than 0.2 mg/dL (0.2-1.2); Calc. Creatinine Clearance 0 mL/min (70-130); Calcium 9.1 mg/dL (7.8-10.44); Carbamazepine-Tegretol 3.3 ug/mL (4.0-12.0); Carbon Dioxide 24 mmol/L (23-31); Chloride 105 mmol/L (98-107); Estimated GFR-MDRD Greater than 90; Globulin 2.7 g/dL (2.4-3.5); Glucose 119 mg/dL (83-110); Protein, Total 6.5 g/dL (5.8-8.1); Sodium 137 mmol/L (136-145)
[2017-07-12 22:03] LABS: CKMB 2.4 ng/mL (0-6.6); Troponin I Less than 0.010 ng/mL (< 0.028)
== END 2017-07-12 23:10 | disposition home or self-care (01) ==
LOC: ERS 20:34
DX: S00.03XA Contusion of scalp, initial encounter (principal); I10 Essential (primary) hypertension; I95.9 Hypotension, unspecified; G40.909 Epilepsy, unspecified, not intractable, without status epilepticus; D64.9 Anemia, unspecified; I25.2 Old myocardial infarction; K21.9 Gastro-esophageal reflux disease without esophagitis; E11.9 Type 2 diabetes mellitus without complications; Z79.82 Long term (current) use of aspirin; Z79.899 Other long term (current) drug therapy; Z79.891 Long term (current) use of opiate analgesic; W19.XXXA Unspecified fall, initial encounter
CPT/HCPCS: 36415; 70450; 71045; 72125; 80053; 80156; 80164; 80185; 82553; 83880; 84484; 85025; 85610; 85730; 93005

== ENCOUNTER 2018-04-25 07:24 | Observation (INO) | payer MEDICARE ==
[2018-04-25] MEDS ORDERED: Ondansetron PF 4 MG/2 ML Vial ONE (08:09)
[2018-04-25 08:23] LABS: #Basophils 0.1 thou/uL (0.0-0.2); #Lymphocytes 0.6 thou/uL (1.20-3.40); #Monocytes 0.6 thou/uL (0.11-0.59); #Neutrophils 8.4 thou/uL (1.40-6.50); %Basophils 0.8 % (0.0-1.0); %Lymphocytes 6.6 % (21.0-51.0); %Monocytes 5.9 % (0.0-10.0); %Neutrophils 86.6 % (42.0-75.0); Hemoglobin 13.2 g/dL (14.0-18.0); Mean Corpuscular HGB CONC 31.8 g/dL (32.0-36.0); Mean Corpuscular Hemoglobin 25.3 pg (27.0-31.0); Mean Corpuscular Volume 79.7 fL (78.0-98.0); Mean Platelet Volume 8.7 fL (7.4-10.4); Platelet Count 119 thou/uL (130-400); RBC Distribution Width 13.1 % (11.5-14.5); White Blood Cell (WBC) Count 9.7 thou/uL (4.8-10.8)
[2018-04-25 08:50] LABS: ALT (SGPT) 31 U/L (8-55); AST (SGOT) 30 U/L (5-34); Albumin 4.1 g/dL (3.4-4.8); Alkaline Phosphatase 150 U/L (40-150); Anion Gap 12 mmol/L (10-20); BUN (Urea Nitrogen) 15 mg/dL (8.4-25.7); Bilirubin, Total 0.4 mg/dL (0.2-1.2); Calc. Creatinine Clearance 0 mL/min (70-130); Calcium 9.2 mg/dL (7.8-10.44); Carbon Dioxide 20 mmol/L (23-31); Chloride 106 mmol/L (98-107); Estimated GFR-MDRD Greater than 90; Globulin 3.1 g/dL (2.4-3.5); Glucose 154 mg/dL (83-110); Protein, Total 7.2 g/dL (5.8-8.1); Sodium 134 mmol/L (136-145)
[2018-04-25] MEDS ORDERED: Promethazine HCl 25 MG/ML VIAL ONE (09:07)
[2018-04-25 09:43] LABS: Bilirubin Negative (Negative); Blood, Urine Negative (Negative); Clarity CLEAR (Clear); Glucose, Urine (Dipstick) Negative (Negative); Leukocyte Negative (Negative); Nitrite Negative (Negative); Protein, Urine (Dipstick) 30 mg/dL (Neg-Trace); Specific Gravity, Urine 1.021 (1.002-1.036)
[2018-04-25 09:48] LABS: Bacteria/HPF None Seen HPF (None Seen); Hyaline Casts/LPF 0-3 HYALINE CAST LPF (0-3 Hyaline); Pathc Cast-AUWi Flag 0.14 (0-2.49); Squamous Epithelial None Seen HPF (0-3); WBC/HPF 0-3 HPF (0-3)
[2018-04-25] MEDS ORDERED: Polyethylene Glycol 3350 17 GM Packet PO SCH (10:00)
[2018-04-25] MEDS ORDERED: Fleet Enema 133 ML BOT FS SCH (10:15)
--- NOTE | 2018-04-25 10:33 | CT ---
CT ABDOMEN AND PELVIS PERFORMED WITH INTRAVENOUS CONTRAST ENHANCEMENT: HISTORY: Abdominal pain, constipation. COMPARISON: A 02/28/2017 exam. FINDINGS: Lung bases show some minimal atelectatic change. Hypodensity within the left lobe of the liver is statistically most likely a small cyst. The liver s urface has a nodular appearance suggestive of cirrhotic change. The liver measures 15.5 cm in length . The spleen measures 12.7 cm. Pancreas region is unremarkable. There is a subtle focus of increas ed attenuation along the gallbladder wall, potentially a tiny stone. Right and left adrenal glands are normal in appearance. Right and left kidneys are normal in size. There is a stable appearance to a parapelvic cyst measuring approximately 3.7 cm within the right kid shruthi. There is no obstruction of either kidney. No renal calculus or evidence of any ureteral calcul us. There is no significant periaortic or mesenteric lymphadenopathy. There is a mild amount of sto ol throughout the colon. There is a mild hiatal hernia present. CT OF PELVIS PERFORMED WITH INTRAVENOUS CONTRAST ENHANCEMENT: The appendix is normal. There is a fat-containing paraumbilical hernia seen. There is a fat-contain ing left inguinal hernia also noted. No adenopathy or mass. IMPRESSION: 1. No acute abnormalities of the abdomen or pelvis. 2. Hiatal hernia. 3. Questionable small gallstones. 4. Cirrhotic-appearing liver with some mild splenomegaly. 5. Small fat-containing paraumbilical hernia and left fat-containing left inguinal hernia incidental ly noted. 6. Stable appearance to a right renal cyst. POS: TPC
[2018-04-25] MEDS ORDERED: ISOVUE-370 76%-LOCM 1 ML ONE (12:45)
--- NOTE | 2018-04-25 16:04 | PDOC.PN ---
- Subjective Encounter Start Date: 04/25/18 Encounter Start Time: 16:00 - Objective MAR Reviewed: Yes Result Diagrams: 04/25/18 08:07 04/25/18 08:07 Dx/Plan - Plan * .
[2018-04-25 17:19] VITALS: BMI 30.8
[2018-04-25] MEDS ORDERED: Ondansetron ODT 4 MG TAB PO PRN (18:27)
[2018-04-25] MEDS ORDERED: hydrALAZINE 20 MG/ML VIAL SLOW IVP PRN (18:27)
[2018-04-25] MEDS ORDERED: Acetaminophen 500 MG TAB PO PRN (18:27)
[2018-04-25] MEDS ORDERED: Ondansetron PF 4 MG/2 ML Vial IVP PRN (18:27)
[2018-04-25] MEDS ORDERED: Atorvastatin Calcium 40 MG TAB PO SCH (21:00)
[2018-04-25] MEDS ORDERED: Zonisamide 100 MG CAP PO SCH (21:00)
[2018-04-25] MEDS ORDERED: carBAMazepine 200 MG TAB PO SCH (21:00)
[2018-04-25] MEDS: Diazepam 5 MG TAB PO SCH (21:56)
[2018-04-25] MEDS: Carvedilol 3.125 MG TAB PO SCH (21:57)
[2018-04-25] MEDS: Famotidine 20 MG TAB PO SCH (21:57)
[2018-04-25] MEDS: Fluorometholone 0.1% Ophth Soln 5 ml Bottle R EYE SCH (21:57)
[2018-04-25] MEDS: Sodium Chloride 0.9% 1,000 ML IV SCH (22:04)
--- NOTE | 2018-04-26 00:56 | HP ---
PRIMARY CARE PROVIDER: Dr. Price. CHIEF COMPLAINT: Nausea and vomiting. HISTORY OF PRESENT ILLNESS: This is a 72-year-old male, who presented to [facility] complaining of multiple bouts of emesis with associated nausea. The patient states he was unable to take his home medications due to the persistent nausea and vomiting. The patient denied taking any home remedies for relief, recent travel, family members with similar symptoms, hematemesis, or melena. The patient does admit his last bowel movement was 48 hours prior to this evaluation and had been taking prunes and other home remedies for relief. The patient denied any fever, chills, recent trauma, or injury. The patient denies taking any new medications and has been compliant with his chronic medications other than in the last 24 hours due to the persistent nausea and vomiting. In the emergency department, the patient underwent general evaluation including CT of the abdomen and pelvis showing no acute process. The patient received antiemetics including Phenergan and Zofran as well as 1 L of normal saline. The patient also received a Fleets Enema and MiraLAX due to constipation with an apparent large bowel movement per the ER staff report. The patient was also noted with syncopal event in the emergency room with a long-standing history of syncopal events and questionable history of epilepsy on antiseizure medications. PAST MEDICAL HISTORY: 1. Orthostatic hypotension. 2. History of seizures. 3. Hypertension. 4. Benign prostatic hyperplasia. 5. Gastroesophageal reflux disease. 6. Question of diet-controlled diabetes mellitus type 2. 7. Diastolic dysfunction with preserved ejection fraction of 55% to 60%. 8. History of herpes simplex virus type 1. PAST SURGICAL HISTORY: 1. Status post left ankle pin placement. 2. Status post vasectomy. 3. Status post coronary artery bypass grafting x4 vessels in 02/2017. CURRENT MEDICATIONS: 1. Enteric-coated aspirin 81 mg p.o. daily. 2. Lipitor 80 mg p.o. at bedtime. 3. Carbamazepine 200 mg p.o. q.a.m. and 400 mg p.o. at bedtime. 4. Vitamin D3, 5000 units p.o. daily. 5. Valium 2.5 mg p.o. b.i.d. 6. Zetia 10 mg p.o. daily. 7. Famvir 250 mg p.o. daily. 8. Fluorometholone one drop to the right eye b.i.d. 9. Lasix 20 mg p.o. q.a.m. 10. Multivitamin with iron 1 tablet p.o. daily. 11. Zestril 10 mg p.o. daily. 12. Prilosec 20 mg p.o. q.a.m. 13. Zonegran 100 mg p.o. daily and 200 mg p.o. at bedtime. 14. Carvedilol 3.125 mg p.o. b.i.d. ALLERGIES: ACYCLOVIR, DIVALPROEX, PHENYTOIN, AND VALSARTAN. FAMILY HISTORY: Positive for hypertension. SOCIAL HISTORY: The patient is , resides in [place], [place]. Primary caregiver for his . No current alcohol, tobacco, or illicit drug use. Does continue to drive. REVIEW OF SYSTEMS: CONSTITUTIONAL: Negative for weight loss or gain, ability to conduct usual activities. SKIN: Negative for rash, itching. EYES: Negative for double vision, pain. ENT/MOUTH: Negative for nose bleeding, neck stiffness, pain, tenderness. CARDIOVASCULAR: Negative for palpitations, dyspnea on exertion, orthopnea. RESPIRATORY: Negative for shortness of breath, wheezing, cough, hemoptysis, fever or night sweats. GASTROINTESTINAL: Negative for poor appetite, abdominal pain, heartburn, nausea, vomiting, constipation, or diarrhea. GENITOURINARY: Negative for urgency, frequency, dysuria, nocturia. MUSCULOSKELETAL: Negative for pain, swelling. NEUROLOGIC/PSYCHIATRIC: Negative for anxiety, depression. ALLERGY/IMMUNOLOGIC: Negative for skin rash, bleeding tendency. Otherwise negative except as stated per HPI. PHYSICAL EXAMINATION: VITAL SIGNS: On admission, blood pressure 159/72, pulse is 85, respiratory rate is 18, temperature 98.8 degrees Fahrenheit, and O2 saturation 93% on room air. GENERAL APPEARANCE: This is a 72-year-old male, alert and oriented x3. Anxious appearing. HEENT: Pupils are equal, round, reactive to light and accommodation. Extraocular muscles are intact. No scleral icterus. No conjunctival injection. Nares patent. OP is clear. Teeth in fair repair. NECK: Supple. No cervical adenopathy. No thyromegaly. No carotid bruits. No JVD appreciated. Cervical spine with full active and passive range of motion. No meningeal signs noted. CHEST: Lungs are clear to auscultation bilaterally. CARDIOVASCULAR: S1 and S2 without noted murmur, rub, or gallop. ABDOMEN: Rounded, soft, nontender, and nondistended. Bowel sounds are positive in all 4 quadrants. No hepatosplenomegaly. No abdominal bruits. No rebound or guarding appreciated. EXTREMITIES: Warm and dry with fair turgor. No clubbing, cyanosis, or asymmetric edema appreciated. Pulses palpable distally at the dorsalis pedis, posterior tibial, and popliteal arteries bilaterally. Capillary refill less than 2 seconds. NEUROLOGIC: Cranial nerves 2 through 12 are grossly intact. Mild tremor noted. No unilateral signs noted. PERTINENT LABORATORY DATA AND X-RAY FINDINGS: Sodium 134, potassium 4.0, chloride 106, CO2 of 20, BUN 15, creatinine 0.76, estimated GFR greater than 90, glucose 154, calcium 9.2. LFTs within normal limits. Troponin-I negative x3. Albumin 4.1. CBC showed a white blood cell count of 9.7, hemoglobin 13.2, hematocrit 41, platelet count 119 with 87% neutrophils. Urinalysis dated 04/25/2018, positive for protein. CT of the abdomen and pelvis dated 04/25/2018 showed no acute intraabdominal process. Cirrhotic appearing liver with mild splenomegaly. EKG dated 04/25/2018 by my interpretation shows sinus mechanism with heart rates in the 70s. Attenuated R-waves noted in the precordial leads. Left axis deviation. No acute ST-T wave changes appreciated. ASSESSMENT AND PLAN: 1. Nausea and vomiting. The patient will be observed on the telemetry unit. Etiology unclear. We will continue antiemetics with Zofran 4 mg IV q.6 hours and additional IV fluids with normal saline at 75 mL/hr. Resume diet as tolerated. 2. Dehydration. We will continue IV fluids with normal saline at 75 mL/hr. Continue to monitor input and output. Repeat basic metabolic profile in the a.m. 3. Syncope. Apparently, chronic condition after review of electronic medical record and discussions with the patient. We will check 2D transthoracic echocardiogram in the a.m. Check orthostatic vital signs q.4 hours x2. Resume home regimen of Zonegran and carbamazepine. 4. Constipation, improved after MiraLAX and Fleets Enema. Continue to monitor voiding. 5. Hypertension. Resume home antihypertensive regimen and monitor clinical response. 6. Prophylaxis. SCDs while in bed. Pepcid 20 mg p.o. b.i.d. PT evaluation for functional assessment. 7. Code status is full. 8. Surrogate medical decision maker is the patient's son. Job ID: [id number]
[2018-04-26 06:40] LABS: Band 1 % (5-11); Hemoglobin 11.1 g/dL (14.0-18.0); Hypochromia SLIGHT = 6-15 cells (100X) (0-5/hpf); Lymphocytes 26 % (21-51); MDiff Complete? YES; Mean Corpuscular HGB CONC 32.7 g/dL (32.0-36.0); Mean Corpuscular Hemoglobin 26.1 pg (27.0-31.0); Mean Corpuscular Volume 79.7 fL (78.0-98.0); Mean Platelet Volume 8.5 fL (7.4-10.4); Monocytes 3 % (0-10); Neutrophil 69 % (42-75); Platelet Count 103 thou/uL (130-400); Platelet Morphology Comment Appears Decreased; Reactive Lymphocytes 1 % (0-10); Red Blood Cell (RBC) Count 4.25 mill/uL (4.70-6.10); White Blood Cell (WBC) Count 4.3 thou/uL (4.8-10.8)
[2018-04-26 06:41] LABS: Anion Gap 13 mmol/L (10-20); BUN (Urea Nitrogen) 18 mg/dL (8.4-25.7); Calc. Creatinine Clearance 114 mL/min (70-130); Calcium 8.2 mg/dL (7.8-10.44); Carbon Dioxide 20 mmol/L (23-31); Chloride 107 mmol/L (98-107); Estimated GFR-MDRD Greater than 90; Glucose 105 mg/dL (83-110); Magnesium 1.8 mg/dL (1.6-2.6); Potassium 3.5 mmol/L (3.5-5.1); Sodium 136 mmol/L (136-145)
[2018-04-26] MEDS: Diazepam 5 MG TAB PO SCH (08:46)
[2018-04-26] MEDS: Famotidine 20 MG TAB PO SCH (08:46)
[2018-04-26] MEDS: Carvedilol 3.125 MG TAB PO SCH (08:48)
[2018-04-26] MEDS: Fluorometholone 0.1% Ophth Soln 5 ml Bottle R EYE SCH (08:48)
[2018-04-26] MEDS ORDERED: Ezetimibe 10 MG TAB PO SCH (09:00)
[2018-04-26] MEDS ORDERED: Zonisamide 100 MG CAP PO SCH (09:00)
[2018-04-26] MEDS ORDERED: carBAMazepine 200 MG TAB PO SCH (09:00)
[2018-04-26] MEDS ORDERED: Lisinopril 10 MG TAB PO SCH (09:00)
[2018-04-26] MEDS ORDERED: Famciclovir 500 MG TAB PO SCH (09:00)
[2018-04-26] MEDS ORDERED: Aspirin 81 mg Enteric Coated Tablet PO SCH (09:00)
[2018-04-26 13:02] VITALS: TEMP 98.2
[2018-04-26] MEDS: Sodium Chloride 0.9% 1,000 ML IV SCH (13:32)
[2018-04-26 16:43] VITALS: BP 167/77
--- NOTE | 2018-04-27 04:44 | DIS ---
DATE OF ADMISSION: 04/25/2018 DATE OF DISCHARGE: 04/26/2018 DISCHARGE DIAGNOSES: 1. Nausea and vomiting, etiology unclear, resolved. 2. Dehydration, resolved. 3. Syncope, chronic. 4. Constipation, resolved. 5. Hypertension, labile. CONSULTATIONS: None. PERTINENT LAB AND X-RAY FINDINGS: Sodium ranged between 134 to 136. Calcium ranged between 8.2 to 9.2, magnesium 1.8. LFTs within normal limits. Troponin I negative x3. TSH 0.74. CBC showed a white blood cell count ranged between 4.3 to 9.7, hemoglobin ranged between 11.[address] of the abdomen and pelvis dated 04/25/2018 showed no acute intraabdominal process. HOSPITAL COURSE: The patient initially presented with persistent and intractable nausea, vomiting with associated dehydration and syncopal event. The patient received IV fluids as well as antiemetics and general supportive management with resolution of the nausea and vomiting prior to discharge. The patient with longstanding history of recurrent syncopal episodes with extensive workup and neurology followup in the past. The patient received stool softeners and bowel stimulants due to constipation with resolution of the constipation prior to discharge. The patient's initial complaints of nausea, vomiting had resolved with IV fluids and antiemetics and was able to tolerate regular oral intake prior to discharge. The patient was evaluated by physical therapy service with recommendations to resume regular activity levels on return home. I have examined the patient at the time of discharge and discussed followup instructions. The patient verbalized understanding and in agreement and ready for discharge, 04/26/2018. DISCHARGE MEDICATIONS: 1. Enteric-coated aspirin 81 mg p.o. daily. 2. Lipitor 80 mg p.o. at bedtime. 3. Calcium carbonate 1000 mg p.o. q.i.d. p.r.n. 4. Carbamazepine 200 mg p.o. q.a.m. and 400 mg p.o. at bedtime. 5. Vitamin D3 5000 units p.o. daily. 6. Valium 2.5 mg p.o. b.i.d. 7. Zetia 10 mg p.o. daily. 8. Famvir 250 mg p.o. daily. 9. Fluorometholone one drop to the right eye b.i.d. 10. Lasix 20 mg p.o. q.a.m.. 11. Iron 65 mg/125 mg 1 tablet p.o. daily. 12. Zestril 10 mg p.o. daily. 13. Omeprazole 20 mg p.o. daily. 14. Senokot-S 2 tablets p.o. at bedtime p.r.n. 15. Zonegran 100 mg p.o. daily and 200 mg p.o. at bedtime. 16. Carvedilol 3.125 mg p.o. b.i.d. FOLLOWUP: The patient may follow up with his primary care provider, Dr. Price within 7 days of discharge. CONDITION ON DISCHARGE: Stable. ACTIVITY: Ad-cyndee. DIET: Regular. CODE STATUS: Full. DISPOSITION: Home on 04/26/2018. Job ID: [id number]
== END 2018-04-26 17:11 | disposition home or self-care (01) ==
LOC: ERS 07:24 → 2SW 12:40
PROVIDERS: ADMIT Family Medicine; ATTEND Family Medicine
DX: R11.2 Nausea with vomiting, unspecified (principal); E86.0 Dehydration; I95.1 Orthostatic hypotension; K59.00 Constipation, unspecified; I10 Essential (primary) hypertension; R10.9 Unspecified abdominal pain; N40.0 Benign prostatic hyperplasia without lower urinary tract symptoms; K44.9 Diaphragmatic hernia without obstruction or gangrene; K40.90 Unilateral inguinal hernia, without obstruction or gangrene, not specified as recurrent; K42.9 Umbilical hernia without obstruction or gangrene; G40.909 Epilepsy, unspecified, not intractable, without status epilepticus; K21.9 Gastro-esophageal reflux disease without esophagitis; Z79.82 Long term (current) use of aspirin; Z79.899 Other long term (current) drug therapy; Z88.8 Allergy status to other drugs, medicaments and biological substances; Z95.1 Presence of aortocoronary bypass graft
CPT/HCPCS: 74177; 80048; 80053; 83735; 84443; 84484 ×2; 85007; 85025; 85027; 93005; 93306; 96361 ×3; 96374; 96375; 97116; 97139; 99285; G0378 ×2; 36415; 81003; 81015; J2405; J2550; Q9966

== ENCOUNTER 2019-03-03 12:23 | Emergency (ER) | payer MEDICARE ==
[2019-03-03] MEDS ORDERED: Lidocaine 1% w/Epinephrine 1:100K 20 ML VIAL ONE ×2 (16:10→16:35)
[2019-03-03] MEDS ORDERED: Bacitracin 1 PK ONE ×2 (16:10→16:35)
== END 2019-03-03 17:04 | disposition home or self-care (01) ==
LOC: ERS 12:23
DX: S01.01XA Laceration without foreign body of scalp, initial encounter (principal); I25.2 Old myocardial infarction; I10 Essential (primary) hypertension; G40.909 Epilepsy, unspecified, not intractable, without status epilepticus; D64.9 Anemia, unspecified; K21.9 Gastro-esophageal reflux disease without esophagitis; E11.9 Type 2 diabetes mellitus without complications; Z79.899 Other long term (current) drug therapy; Z79.82 Long term (current) use of aspirin; W18.30XA Fall on same level, unspecified, initial encounter
CPT/HCPCS: 12002

== ENCOUNTER 2020-04-06 07:42 | Emergency (ER) | payer MEDICARE ==
[2020-04-06] MEDS ORDERED: cloNIDine 0.1 MG TAB ONE (08:09)
[2020-04-06 08:40] LABS: #Lymphocytes 1.1 thou/uL (1.20-3.40); #Monocytes 0.4 thou/uL (0.11-0.59); #Neutrophils 4.4 thou/uL (1.40-6.50); %Basophils 0.1 % (0.0-1.0); %Eosinophils 0.1 % (0.0-10.0); %Lymphocytes 18.4 % (21.0-51.0); %Neutrophils 75.4 % (42.0-75.0); Hemoglobin 11.8 g/dL (14.0-18.0); Mean Corpuscular HGB CONC 32.8 g/dL (32.0-36.0); Mean Corpuscular Hemoglobin 25.4 pg (27.0-31.0); Mean Corpuscular Volume 77.3 fL (78.0-98.0); Mean Platelet Volume 8.3 fL (7.4-10.4); Platelet Count 149 thou/uL (130-400); RBC Distribution Width 14.1 % (11.5-14.5); Red Blood Cell (RBC) Count 4.64 mill/uL (4.70-6.10); White Blood Cell (WBC) Count 5.8 thou/uL (4.8-10.8)
[2020-04-06 08:51] LABS: Bilirubin Negative (Negative); Blood, Urine Negative (Negative); Clarity Turbid (Clear); Glucose, Urine (Dipstick) Normal (Negative); Ketone, Urine Negative (Negative); Leukocyte Negative Leu/uL (Negative); Nitrite Negative (Negative); Protein, Urine (Dipstick) 20 mg/dL (Neg-Trace); Urobilinogen Normal mg/dL (Less than 2); pH, Urine 7.5 (5.0-9.0)
[2020-04-06 09:01] LABS: ALT (SGPT) 17 U/L (8-55); AST (SGOT) 17 U/L (5-34); Alkaline Phosphatase 153 U/L (40-110); Anion Gap 12 mmol/L (10-20); BUN (Urea Nitrogen) 9 mg/dL (8.4-25.7); Bilirubin, Total 0.4 mg/dL (0.2-1.2); CK (CPK) 69 U/L (30-200); Calc. Creatinine Clearance 0 mL/min (70-130); Calcium 8.6 mg/dL (7.8-10.44); Carbon Dioxide 25 mmol/L (23-31); Chloride 93 mmol/L (98-107); Globulin 2.6 g/dL (2.4-3.5); Glucose 137 mg/dL (83-110); Lipase 20 U/L (8-78); Potassium 4.3 mmol/L (3.5-5.1); Protein, Total 6.6 g/dL (5.8-8.1); Sodium 126 mmol/L (136-145)
--- NOTE | 2020-04-06 09:02 | RAD ---
Exam: Chest one view HISTORY:Chest pain. Hypertension. Comparison: 07/12/2017 FINDINGS: Cardiac silhouette:Upper normal cardiac silhouette. Stable sternotomy wires appear Aorta: Atherosclerosis Pulmonary vessels: Normal Costophrenic angles: Clear LUNGS: No masses or consolidation. Pneumothorax: None Osseous abnormalities: None IMPRESSION: 1. Atherosclerosis 2. No acute cardiopulmonary process.
== END 2020-04-06 10:30 | disposition home or self-care (01) ==
LOC: ERS 07:42
DX: I10 Essential (primary) hypertension (principal); K59.00 Constipation, unspecified; E87.1 Hypo-osmolality and hyponatremia; I25.2 Old myocardial infarction; E11.9 Type 2 diabetes mellitus without complications; Z79.899 Other long term (current) drug therapy
CPT/HCPCS: 71045; 80053; 81003; 82550; 83690; 83880; 84484; 85025; 93005

== ENCOUNTER 2020-08-27 09:37 | Observation (INO) | payer MEDICARE ==
[2020-08-27 10:44] LABS: #Lymphocytes 1.2 thou/uL (1.20-3.40); #Monocytes 0.5 thou/uL (0.11-0.59); #Neutrophils 4.3 thou/uL (1.40-6.50); %Basophils 0.6 % (0.0-1.0); %Eosinophils 0.2 % (0.0-10.0); %Lymphocytes 20.1 % (21.0-51.0); %Monocytes 7.6 % (0.0-10.0); %Neutrophils 71.5 % (42.0-75.0); Hemoglobin 11.6 g/dL (14.0-18.0); Mean Corpuscular HGB CONC 33.3 g/dL (32.0-36.0); Mean Corpuscular Volume 81.2 fL (78.0-98.0); Mean Platelet Volume 8.6 fL (7.4-10.4); Platelet Count 133 thou/uL (130-400); RBC Distribution Width 13.8 % (11.5-14.5); Red Blood Cell (RBC) Count 4.29 mill/uL (4.70-6.10)
[2020-08-27 11:09] LABS: ALT (SGPT) 20 U/L (8-55); AST (SGOT) 17 U/L (5-34); Albumin 3.6 g/dL (3.4-4.8); Alkaline Phosphatase 112 U/L (40-110); Anion Gap 10 mmol/L (10-20); BUN (Urea Nitrogen) 15 mg/dL (8.4-25.7); Bilirubin, Total 0.3 mg/dL (0.2-1.2); Calc. Creatinine Clearance 0 mL/min (70-130); Calcium 8.7 mg/dL (7.8-10.44); Carbon Dioxide 23 mmol/L (23-31); Chloride 102 mmol/L (98-107); Globulin 2.6 g/dL (2.4-3.5); Glucose 106 mg/dL (83-110); Potassium 4.1 mmol/L (3.5-5.1); Protein, Total 6.2 g/dL (5.8-8.1); Sodium 131 mmol/L (136-145)
[2020-08-27] MEDS ORDERED: Amlodipine 5 MG TAB PO PRN (13:36)
[2020-08-27] MEDS ORDERED: Acetaminophen 325 MG TAB PO PRN (13:37)
[2020-08-27] MEDS ORDERED: Ondansetron ODT 4 MG TAB PO PRN (13:37)
[2020-08-27] MEDS ORDERED: Ondansetron PF 4 MG/2 ML Vial IVP PRN (13:37)
[2020-08-27 13:50] LABS: Troponin I Less than 0.010 ng/mL (< 0.028)
[2020-08-27 16:44] LABS: Troponin I Less than 0.010 ng/mL (< 0.028)
[2020-08-27 20:38] LABS: SARS-CoV-2 PCR by NAA Not Detected (NotDetected)
[2020-08-27] MEDS ORDERED: Atorvastatin Calcium 40 MG TAB PO SCH (21:00)
[2020-08-27] MEDS ORDERED: carBAMazepine 200 MG TAB PO SCH (21:00)
[2020-08-27] MEDS: Lisinopril 10 MG TAB PO SCH (22:10)
[2020-08-27] MEDS: Diazepam 5 MG TAB PO SCH (22:10)
[2020-08-27] MEDS: Carvedilol 3.125 MG TAB PO SCH (22:10)
[2020-08-27] MEDS ORDERED: Ezetimibe 10 MG TAB PO SCH (22:15)
[2020-08-27] MEDS: Zonisamide 100 MG CAP PO SCH (22:30)
[2020-08-28 05:22] LABS: #Lymphocytes 1.4 thou/uL (1.20-3.40); #Monocytes 0.5 thou/uL (0.11-0.59); #Neutrophils 5.1 thou/uL (1.40-6.50); %Basophils 0.6 % (0.0-1.0); %Eosinophils 0.1 % (0.0-10.0); %Lymphocytes 19.8 % (21.0-51.0); %Monocytes 7.6 % (0.0-10.0); %Neutrophils 71.9 % (42.0-75.0); Hemoglobin 11.9 g/dL (14.0-18.0); Mean Corpuscular HGB CONC 33.5 g/dL (32.0-36.0); Mean Corpuscular Hemoglobin 27.1 pg (27.0-31.0); Mean Corpuscular Volume 81.1 fL (78.0-98.0); Mean Platelet Volume 8.5 fL (7.4-10.4); Platelet Count 122 thou/uL (130-400); RBC Distribution Width 13.8 % (11.5-14.5); Red Blood Cell (RBC) Count 4.38 mill/uL (4.70-6.10)
[2020-08-28 05:46] LABS: Anion Gap 9 mmol/L (10-20); BUN (Urea Nitrogen) 13 mg/dL (8.4-25.7); Calc. Creatinine Clearance 90 mL/min (70-130); Calcium 9.3 mg/dL (7.8-10.44); Carbon Dioxide 27 mmol/L (23-31); Cardiac Risk 2.7 (Less than 4.5); Chloride 103 mmol/L (98-107); Cholesterol 140 mg/dl (< 200 Desired); Glucose 97 mg/dL (83-110); HDL Cholesterol 52 mg/dL (>60 Neg Risk); LDL Cholesterol, Calculated 77 mg/dL; Potassium 4.2 mmol/L (3.5-5.1); Sodium 135 mmol/L (136-145); Triglycerides 56 mg/dL (Less than 150)
[2020-08-28 06:01] LABS: Free T4 (Free Thyroxine) 0.67 ng/dL (0.70-1.48)
[2020-08-28] MEDS: Diazepam 5 MG TAB PO SCH (08:19)
[2020-08-28] MEDS: Zonisamide 100 MG CAP PO SCH (08:20)
[2020-08-28] MEDS: Lisinopril 10 MG TAB PO SCH (08:20)
[2020-08-28] MEDS: Carvedilol 3.125 MG TAB PO SCH (08:21)
[2020-08-28] MEDS ORDERED: carBAMazepine 200 MG TAB PO SCH (09:00)
[2020-08-28] MEDS ORDERED: hydrALAZINE 20 MG/ML VIAL SLOW IVP PRN (11:39)
[2020-08-28] MEDS ORDERED: NIFEdipine XL 60 MG TAB PO SCH (14:45)
[2020-08-28 15:42] LABS: Troponin I Less than 0.010 ng/mL (< 0.028)
[2020-08-28 16:26] VITALS: BP 202/89; TEMP 98.1
[2020-08-28 17:46] VITALS: BMI 28.4
[2020-08-28] MEDS ORDERED: Communication Order-Pharmacy FS SCH (18:45)
[2020-08-28] MEDS ORDERED: Aspirin 81 mg Enteric Coated Tablet PO SCH (21:00)
[2020-08-28] MEDS ORDERED: Ezetimibe 10 MG TAB PO SCH (21:00)
[2020-08-28] MEDS ORDERED: Heparin 5,000 UNITS/ML VIAL SC SCH (21:00)
[2020-08-29] MEDS ORDERED: Sodium Chloride 0.9% 1,000 ML IV SCH (06:00)
[2020-08-29] MEDS ORDERED: NIFEdipine XL 60 MG TAB PO SCH (09:00)
== END 2020-08-28 19:59 | disposition left against medical advice (07) ==
LOC: ERS 09:37 → ERHOLD 12:28 → 2SW 19:55
PROVIDERS: ADMIT Internal Medicine; ATTEND Hospitalist
DX: R07.89 Other chest pain (principal); I10 Essential (primary) hypertension; E78.5 Hyperlipidemia, unspecified; E87.1 Hypo-osmolality and hyponatremia; E11.9 Type 2 diabetes mellitus without complications; G40.909 Epilepsy, unspecified, not intractable, without status epilepticus; D53.9 Nutritional anemia, unspecified; K21.9 Gastro-esophageal reflux disease without esophagitis; I25.2 Old myocardial infarction; I25.5 Ischemic cardiomyopathy; I44.0 Atrioventricular block, first degree; I25.10 Atherosclerotic heart disease of native coronary artery without angina pectoris; E03.9 Hypothyroidism, unspecified; I08.3 Combined rheumatic disorders of mitral, aortic and tricuspid valves; E78.00 Pure hypercholesterolemia, unspecified; B19.10 Unspecified viral hepatitis B without hepatic coma; E66.9 Obesity, unspecified; Z68.28 Body mass index [BMI] 28.0-28.9, adult; Z87.891 Personal history of nicotine dependence; Z79.82 Long term (current) use of aspirin; Z79.899 Other long term (current) drug therapy; Z88.8 Allergy status to other drugs, medicaments and biological substances; Z95.1 Presence of aortocoronary bypass graft; Z20.822 Contact with and (suspected) exposure to COVID-19
CPT/HCPCS: 71045; 80048; 80061; 82962; 83735; 84439; 84481; 84484 ×3; 85025; 93005; 93306; 96374; G0378 ×3; U0003; U0005; 36415; 36416; 80053; 84443; J0360

== ENCOUNTER 2020-10-06 14:06 | Observation (INO) | payer OTHER, MEDICARE ==
[2020-10-06 14:40] LABS: #Lymphocytes 1.3 thou/uL (1.20-3.40); #Monocytes 0.6 thou/uL (0.11-0.59); #Neutrophils 6.1 thou/uL (1.40-6.50); %Basophils 0.1 % (0.0-1.0); %Eosinophils 0.1 % (0.0-10.0); %Lymphocytes 16.6 % (21.0-51.0); %Monocytes 7.4 % (0.0-10.0); %Neutrophils 75.8 % (42.0-75.0); Hemoglobin 11.7 g/dL (14.0-18.0); Mean Corpuscular HGB CONC 32.6 g/dL (32.0-36.0); Mean Corpuscular Hemoglobin 26.8 pg (27.0-31.0); Mean Corpuscular Volume 82.2 fL (78.0-98.0); Mean Platelet Volume 8.7 fL (7.4-10.4); Platelet Count 138 thou/uL (130-400); RBC Distribution Width 13.9 % (11.5-14.5); Red Blood Cell (RBC) Count 4.37 mill/uL (4.70-6.10)
[2020-10-06 15:00] LABS: ALT (SGPT) 18 U/L (8-55); AST (SGOT) 19 U/L (5-34); Albumin 3.8 g/dL (3.4-4.8); Alkaline Phosphatase 128 U/L (40-110); Anion Gap 13 mmol/L (10-20); BUN (Urea Nitrogen) 14 mg/dL (8.4-25.7); Bilirubin, Total 0.4 mg/dL (0.2-1.2); Calc. Creatinine Clearance 0 mL/min (70-130); Calcium 8.7 mg/dL (7.8-10.44); Carbon Dioxide 22 mmol/L (23-31); Chloride 103 mmol/L (98-107); Globulin 2.5 g/dL (2.4-3.5); Glucose 101 mg/dL (83-110); Potassium 4.1 mmol/L (3.5-5.1); Protein, Total 6.3 g/dL (5.8-8.1); Sodium 134 mmol/L (136-145)
[2020-10-06] MEDS ORDERED: Lidocaine 1% w/Epinephrine 1:100K 20 ML VIAL ONE (16:31)
[2020-10-06 16:33] LABS: Bilirubin Negative (Negative); Blood, Urine Negative (Negative); Clarity Clear (Clear); Glucose, Urine (Dipstick) Normal (Negative); Ketone, Urine Negative (Negative); Leukocyte Negative Leu/uL (Negative); Nitrite Negative (Negative); Protein, Urine (Dipstick) 20 mg/dL (Neg-Trace); Specific Gravity, Urine 1.013 (1.002-1.036); Urobilinogen Normal mg/dL (Less than 2); pH, Urine 6.5 (5.0-9.0)
[2020-10-06] MEDS ORDERED: Labetalol HCl 100 MG/20 ML VIAL ONE (17:55)
[2020-10-06 19:13] LABS: Troponin I Less than 0.010 ng/mL (< 0.028)
[2020-10-06] MEDS ORDERED: HYDROcodone/Acetaminophen 5/325 mg Tablet PO PRN (19:26)
[2020-10-06] MEDS ORDERED: Ondansetron PF 4 MG/2 ML Vial IVP PRN (19:26)
[2020-10-06] MEDS ORDERED: Acetaminophen 325 MG TAB PO PRN (19:26)
[2020-10-06 20:50] VITALS: BMI 28.8
[2020-10-06 21:37] LABS: Troponin I Less than 0.010 ng/mL (< 0.028)
[2020-10-06] MEDS ORDERED: carBAMazepine 200 MG TAB PO SCH (22:45)
[2020-10-06] MEDS ORDERED: Carvedilol 6.25 MG TAB PO SCH (22:45)
[2020-10-06] MEDS ORDERED: Lisinopril 10 MG TAB PO SCH (22:45)
[2020-10-06] MEDS ORDERED: Atorvastatin Calcium 40 MG TAB PO SCH (22:45)
[2020-10-06] MEDS ORDERED: Diazepam 5 MG TAB PO SCH (23:00)
[2020-10-07 05:08] LABS: #Lymphocytes 1.3 thou/uL (1.20-3.40); #Monocytes 0.5 thou/uL (0.11-0.59); #Neutrophils 3.4 thou/uL (1.40-6.50); %Basophils 0.2 % (0.0-1.0); %Eosinophils 0.2 % (0.0-10.0); %Lymphocytes 24.4 % (21.0-51.0); %Monocytes 8.8 % (0.0-10.0); %Neutrophils 66.4 % (42.0-75.0); Hemoglobin 10.9 g/dL (14.0-18.0); Mean Corpuscular HGB CONC 31.1 g/dL (32.0-36.0); Mean Corpuscular Hemoglobin 25.7 pg (27.0-31.0); Mean Corpuscular Volume 82.7 fL (78.0-98.0); Mean Platelet Volume 8.9 fL (7.4-10.4); Platelet Count 122 thou/uL (130-400); RBC Distribution Width 13.8 % (11.5-14.5); Red Blood Cell (RBC) Count 4.22 mill/uL (4.70-6.10); White Blood Cell (WBC) Count 5.1 thou/uL (4.8-10.8)
[2020-10-07 05:31] LABS: Anion Gap 11 mmol/L (10-20); BUN (Urea Nitrogen) 13 mg/dL (8.4-25.7); Calc. Creatinine Clearance 99 mL/min (70-130); Calcium 8.6 mg/dL (7.8-10.44); Carbon Dioxide 23 mmol/L (23-31); Cardiac Risk 2.8 (Less than 4.5); Chloride 106 mmol/L (98-107); Cholesterol 127 mg/dl (< 200 Desired); Glucose 91 mg/dL (83-110); HDL Cholesterol 45 mg/dL (>60 Neg Risk); LDL Cholesterol, Calculated 71 mg/dL; Potassium 4.1 mmol/L (3.5-5.1); Sodium 136 mmol/L (136-145); Triglycerides 54 mg/dL (Less than 150)
[2020-10-07] MEDS ORDERED: Sodium Chloride 0.9% 1,000 ML IV SCH (08:00)
[2020-10-07 08:55] LABS: Carbamazepine-Tegretol 7.7 ug/mL (4.0-12.0)
[2020-10-07] MEDS ORDERED: Amlodipine 5 MG TAB PO SCH (09:00)
[2020-10-07] MEDS ORDERED: Ascorbic Acid 500 mg Chewable Tablet PO SCH (09:00)
[2020-10-07] MEDS ORDERED: Carvedilol 6.25 MG TAB PO SCH (09:00)
[2020-10-07] MEDS ORDERED: Cholecalciferol 1,000 UNITS (25 MCG) TAB PO SCH (09:00)
[2020-10-07] MEDS ORDERED: Non-Formulary Item 1 EACH (Cholecalciferol (Vitamin D3) [Vitamin D3] 125 MCG Capsule) PO SCH (09:00)
[2020-10-07] MEDS ORDERED: carBAMazepine 200 MG TAB PO SCH ×2 (09:00→21:00)
[2020-10-07] MEDS ORDERED: Vit A,C & E/Lutein/Minerals Tablet PO SCH (09:00)
[2020-10-07] MEDS ORDERED: Famciclovir 500 MG TAB PO SCH (09:00)
[2020-10-07] MEDS ORDERED: Cyanocobalamin (Vitamin B-12) 1,000 MCG TAB PO SCH (09:00)
[2020-10-07] MEDS ORDERED: Lisinopril 10 MG TAB PO SCH (09:00)
[2020-10-07] MEDS ORDERED: Zonisamide 100 MG CAP PO SCH (09:00)
[2020-10-07] MEDS ORDERED: Diazepam 5 MG TAB PO SCH ×2 (09:00→21:00)
[2020-10-07 16:45] VITALS: BP 147/101; TEMP 98.2
[2020-10-07] MEDS ORDERED: Atorvastatin Calcium 40 MG TAB PO SCH (21:00)
[2020-10-07] MEDS ORDERED: Ezetimibe 10 MG TAB PO SCH (21:00)
== END 2020-10-07 19:23 | disposition left against medical advice (07) ==
LOC: ERS 14:06 → 2SW 18:01
PROVIDERS: ADMIT Family Medicine; ATTEND Physician Assistant
DX: R55 Syncope and collapse (principal); I10 Essential (primary) hypertension; I25.10 Atherosclerotic heart disease of native coronary artery without angina pectoris; I25.2 Old myocardial infarction; I25.5 Ischemic cardiomyopathy; E78.5 Hyperlipidemia, unspecified; E11.9 Type 2 diabetes mellitus without complications; G40.909 Epilepsy, unspecified, not intractable, without status epilepticus; D64.89 Other specified anemias; K21.9 Gastro-esophageal reflux disease without esophagitis; S51.012A Laceration without foreign body of left elbow, initial encounter; S51.811A Laceration without foreign body of right forearm, initial encounter; Z91.81 History of falling; Z88.8 Allergy status to other drugs, medicaments and biological substances; Z79.82 Long term (current) use of aspirin; Z79.899 Other long term (current) drug therapy; Z95.1 Presence of aortocoronary bypass graft; W19.XXXA Unspecified fall, initial encounter; Y92.512 Supermarket, store or market as the place of occurrence of the external cause
CPT/HCPCS: 12002; 36415; 36416; 70450; 72125; 80048; 80053; 80061; 80156; 81003; 84484; 85025; 93005; 96374; G0378

== ENCOUNTER 2020-10-16 10:02 | Emergency (ER) | payer MEDICARE | END 2020-10-16 10:42 | disposition home or self-care (01) | LOC: ERS 10:02 | DX: S01.01XD Laceration without foreign body of scalp, subsequent encounter (principal); S51.811D Laceration without foreign body of right forearm, subsequent encounter; Z79.899 Other long term (current) drug therapy; Z79.82 Long term (current) use of aspirin; I25.2 Old myocardial infarction; I10 Essential (primary) hypertension; G40.909 Epilepsy, unspecified, not intractable, without status epilepticus; D64.9 Anemia, unspecified; K21.9 Gastro-esophageal reflux disease without esophagitis; E11.9 Type 2 diabetes mellitus without complications ==

== ENCOUNTER 2021-12-23 16:53 | Emergency (ER) | payer MEDICARE, OTHER ==
[2021-12-23 17:14] LABS: #Lymphocytes 1.2 thou/uL (1.20-3.40); #Monocytes 0.4 thou/uL (0.11-0.59); #Neutrophils 4.8 thou/uL (1.40-6.50); %Basophils 0.1 % (0.0-1.0); %Eosinophils 0.1 % (0.0-10.0); %Lymphocytes 18.7 % (21.0-51.0); %Monocytes 6.6 % (0.0-10.0); %Neutrophils 74.5 % (42.0-75.0); Mean Corpuscular HGB CONC 31.7 g/dL (32.0-36.0); Mean Corpuscular Hemoglobin 28.5 pg (27.0-31.0); Mean Corpuscular Volume 89.7 fL (78.0-98.0); Mean Platelet Volume 8.1 fL (7.4-10.4); Platelet Count 138 thou/uL (130-400); RBC Distribution Width 12.6 % (11.5-14.5); Red Blood Cell (RBC) Count 4.58 mill/uL (4.70-6.10); White Blood Cell (WBC) Count 6.4 thou/uL (4.8-10.8)
[2021-12-23 17:37] LABS: ALT (SGPT) 19 U/L (8-55); AST (SGOT) 17 U/L (5-34); Albumin 3.9 g/dL (3.4-4.8); Alkaline Phosphatase 117 U/L (40-110); Anion Gap 11 mmol/L (10-20); BUN (Urea Nitrogen) 14 mg/dL (8.4-25.7); Bilirubin, Total 0.3 mg/dL (0.2-1.2); Calc. Creatinine Clearance 0 mL/min (70-130); Calcium 8.8 mg/dL (7.8-10.44); Carbon Dioxide 23 mmol/L (23-31); Chloride 105 mmol/L (98-107); Estimated GFR 91; Globulin 2.5 g/dL (2.4-3.5); Glucose 120 mg/dL (83-110); Lipase 24 U/L (8-78); Potassium 4.2 mmol/L (3.5-5.1); Protein, Total 6.4 g/dL (5.8-8.1); Sodium 135 mmol/L (136-145)
[2021-12-23 18:03] LABS: Actual Bicarbonate (HCO3v) 21 mEq/L (22-28); Analyzer IN Cardio ER; Calcium, Ionized (venous) 1.05 mmol/L (1.16-1.32); Chloride (VBG) 104 mmol/L (98-106); Hemoglobin (Hb) 14.3 g/dL (12.6-17.4); Potassium (VBG) 3.92 mmol/L (3.70-5.30); Sodium 133.2 mmol/L (133-146); pH (venous) 7.43 (7.32-7.43)
[2021-12-23] MEDS ORDERED: hydrALAZINE 20 MG/ML VIAL ONE ×2 (18:25→19:36)
== END 2021-12-23 20:08 | disposition home or self-care (01) ==
LOC: ERS 16:53
DX: S51.012A Laceration without foreign body of left elbow, initial encounter (principal); W19.XXXA Unspecified fall, initial encounter
CPT/HCPCS: 36415; 71045; 80053; 82805; 83605; 83690; 84484; 85025; 87040; 93005; 94760; 96374; J0360

== ENCOUNTER 2024-02-12 22:54 | Emergency (ER) | payer MEDICARE, OTHER ==
[2024-02-12 23:42] LABS: #Basophils 0.03 10x3/uL (0.0-0.2); #Eosinophils Less than 0.03 10x3/uL (0.0-0.7); %Basophils 0.5 % (0.0-1.0); %Lymphocytes 25.5 % (21.0-51.0); %Monocytes 9.4 % (0.0-10.0); %Neutrophils 64.3 % (42.0-75.0); Hematocrit 34.4 % (42.0-52.0); Hemoglobin 11.8 g/dL (14.0-18.0); Mean Corpuscular HGB CONC 34.3 g/dL (32.0-36.0); Mean Corpuscular Hemoglobin 28.6 pg (27.0-31.0); Mean Corpuscular Volume 83.3 fL (78.0-98.0); Mean Platelet Volume 9.4 fL (7.4-10.4); Platelet Count 146 10x3/uL (130-400); RBC Distribution Width 13.1 % (11.5-14.5); Red Blood Cell (RBC) Count 4.13 mill/uL (4.70-6.10)
[2024-02-13 00:05] LABS: ALT (SGPT) 20 U/L (8-55); AST (SGOT) 19 U/L (5-34); Albumin 3.3 g/dL (3.4-4.8); Alkaline Phosphatase 102 U/L (40-110); Anion Gap 12 mmol/L (10-20); BUN (Urea Nitrogen) 20 mg/dL (8.4-25.7); Bilirubin, Total 0.3 mg/dL (0.2-1.2); Calc. Creatinine Clearance 0 mL/min (70-130); Calcium 8.4 mg/dL (7.8-10.44); Carbon Dioxide 19 mmol/L (23-31); Chloride 105 mmol/L (98-107); Estimated GFR 90; Globulin 2.8 g/dL (2.4-3.5); Glucose 109 mg/dL (83-110); Potassium 4.1 mmol/L (3.5-5.1); Protein, Total 6.1 g/dL (5.8-8.1); Sodium 132 mmol/L (136-145)
== END 2024-02-13 02:51 | disposition home or self-care (01) ==
LOC: ERS 22:54
DX: T42.1X1A Poisoning by iminostilbenes, accidental (unintentional), initial encounter (principal); T42.4X1A Poisoning by benzodiazepines, accidental (unintentional), initial encounter; T44.7X1A Poisoning by beta-adrenoreceptor antagonists, accidental (unintentional), initial encounter; T46.4X1A Poisoning by angiotensin-converting-enzyme inhibitors, accidental (unintentional), initial encounter; T46.6X1A Poisoning by antihyperlipidemic and antiarteriosclerotic drugs, accidental (unintentional), initial encounter; I10 Essential (primary) hypertension; E11.9 Type 2 diabetes mellitus without complications; K21.9 Gastro-esophageal reflux disease without esophagitis; I25.2 Old myocardial infarction; Z79.82 Long term (current) use of aspirin; Z79.899 Other long term (current) drug therapy
CPT/HCPCS: 36415; 80053; 85025; 93005; 99284